=== PATIENT | female | born 1990 | race American Indian/Alaskan Native ===

== ENCOUNTER 2017-01-15 18:30 | Emergency (ER) | payer BC, OTHER ==
[2017-01-15] MEDS ORDERED: Sodium Chloride 0.9% 1,000 ML IV ONE (19:09)
[2017-01-15] MEDS ORDERED: Ondansetron 4 MG/2 ML SDV IVPUSH ONE (19:09)
--- NOTE | 2017-01-15 19:23 | EDM.PDOC ---
ED HPI GENERAL MEDICAL PROBLEM - General Chief Complaint: Gastrointestinal Problem Stated Complaint: BACK PAIN Time Seen by Provider: 01/15/17 18:55 - History of Present Illness INITIAL COMMENTS - FREE TEXT/NARRATIVE: HISTORY AND PHYSICAL: History of present illness: Patient 36-year-old female no significant past medical stringently journaled generalized weakness intermittent nausea and vomiting over last one week she states she's had recent family members diagnosed with cancer and she is concerned about cancer screening and a variety of nonspecific complaints she said over the last week she denied vaginal discharge irregular bleeding urinary symptoms she states that intermittent right-sided pain is poorly localizers no associated trauma no other complaints. Review of systems: As per history of present illness and below otherwise all systems reviewed and negative. Past medical history: As per history of present illness and as reviewed below otherwise noncontributory. Surgical history: As per history of present illness and as reviewed below otherwise noncontributory. Social history: No reported history of drug or alcohol abuse. Family history: As per history of present illness and as reviewed below otherwise noncontributory. Physical exam: HEENT: Atraumatic, normocephalic, pupils reactive, negative for conjunctival pallor or scleral icterus, mucous membranes dry, throat clear, neck supple, nontender, trachea midline. Lungs: Clear to auscultation, breath sounds equal bilaterally, chest nontender. Heart: S1S2, regular, negative for clicks, rubs, or JVD. Abdomen: Soft, nondistended, nontender. Negative for masses or hepatosplenomegaly. Negative for costovertebral tenderness. Pelvis: Stable nontender. Genitourinary: Deferred. Rectal: Deferred. Extremities: Atraumatic, negative for cords or calf pain. Neurovascular unremarkable. Neuro: Awake, alert, oriented. Cranial nerves II through XII unremarkable. Cerebellum unremarkable. Motor and sensory unremarkable throughout. Exam nonfocal. Diagnostics: CBC CMP UA hCG influenza screen chest x-ray Therapeutics: Normal saline 1 L bolus Zofran 4 mg IV Impression: #1 probable viral syndrome #2 vomiting Definitive disposition and diagnosis as appropriate pending reevaluation and review of above. - Related Data Allergies Allergy/AdvReac Type Severity Reaction Status Date / Time No Known Allergies Allergy Verified 01/15/17 19:54 Home Meds: Home Meds . 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: Musculoskeletal History: Reports: None Neurological History: Reports: Other (see below) Other Neuro History: bells palsy (2013) Psychiatric History: Reports: None Endocrine/Metabolic History: Reports: None Hematologic History: Reports: None Immunologic History: Reports: None Oncologic (Cancer) History: Reports: None Dermatologic History: Reports: None - Infectious Disease History Infectious Disease History: Reports: None - Past Surgical History Head Surgeries/Procedures: Reports: None HEENT Surgical History: Reports: None GI Surgical History: Reports: None Neurological Surgical History: Reports: None Social & Family History - Family History Family Medical History: Unobtainable - Tobacco Use Smoking Status *Q: Never Smoker Second Hand Smoke Exposure: No - Recreational Drug Use Recreational Drug Use: No ED ROS GENERAL - Review of Systems Review Of Systems: ROS reveals no pertinent complaints other than HPI. ED EXAM, GENERAL - Physical Exam Exam: See Below (See dictation) Course - Vital Signs Last Recorded V/S: Last Vital Signs Temp 36.8 C 01/15/17 19:54 Pulse 68 01/15/17 19:54 Resp 18 01/15/17 19:54 BP 115/70 01/15/17 19:54 Pulse Ox 99 01/15/17 19:54 - Orders/Labs/Meds Orders: Active Orders 24 hr Category Date Time Status Chest 2V [CR] Stat Exams 01/15/17 19:09 Ordered OB 1st Tri Sgl 1st Gest [US] Stat Exams 01/15/17 20:04 Taken Labs: Laboratory Tests 01/15/17 01/15/17 01/15/17 Range/Units 19:25 19:25 19:25 WBC 10.85 (4.0-11.0) K/uL RBC 4.76 (4.30-5.90) M/uL Hgb 13.1 (12.0-16.0) g/dL Hct 40.0 (36.0-46.0) % MCV 84.0 (80.0-98.0) fL MCH 27.5 (27.0-32.0) pg MCHC 32.8 (31.0-37.0) g/dL RDW Std Deviation 39.5 (28.0-62.0) fl RDW Coeff of Su 13 (11.0-15.0) % Plt Count 234 (150-400) K/uL MPV 9.60 (7.40-12.00) fL Neut % (Auto) 65.7 (48.0-80.0) % Lymph % (Auto) 25.4 (16.0-40.0) % [place] % (Auto) 8.3 (0.0-15.0) % Eos % (Auto) 0.5 (0.0-7.0) % Baso % (Auto) 0.1 (0.0-1.5) % Neut # 7.1 H (1.4-5.7) K/uL Lymph # 2.8 H (0.6-2.4) K/uL [place] # 0.9 H (0.0-0.8) K/uL Eos # 0.1 (0.0-0.7) K/uL Baso # 0.0 (0.0-0.1) K/uL Nucleated RBC % 0.0 /100WBC Nucleated RBCs # 0 K/uL Sodium 138 (136-146) mmol/L Potassium 3.9 (3.5-5.1) mmol/L Chloride 107 (98-110) mmol/L Carbon Dioxide 21 (21-31) mmol/L BUN 12 (6.0-23.0) mg/dL Creatinine 0.6 (0.6-1.5) mg/dL Est Cr Clr Drug Dosing 101.16 mL/min Estimated GFR (MDRD) > 60.0 ml/min Glucose 83 (60-110) mg/dL Calcium 9.0 (8.8-10.8) mg/dL Total Bilirubin 0.2 (0.1-1.5) mg/dL AST 26 (5-40) IU/L ALT 33 (8-54) IU/L Alkaline Phosphatase 76 (40-150) Total Protein 7.3 (6.0-8.0) g/dL Albumin 3.9 (3.5-5.0) g/dL Globulin 3.4 (2.0-3.5) g/dL Albumin/Globulin Ratio 1.1 L (1.3-2.8) Lipase 25 (7-80) U/L HCG, Quant mIU/mL Urine Color Urine Appearance Urine pH (5.0-8.0) Ur Specific [place] (1.001-1.035) Urine Protein (NEGATIVE) mg/dL Urine Glucose (UA) (NEGATIVE) mg/dL Urine Ketones (NEGATIVE) mg/dL Urine Occult Blood (NEGATIVE) Urine Nitrite (NEGATIVE) Urine Bilirubin (NEGATIVE) Urine Urobilinogen (<2.0) EU/dL Ur Leukocyte Esterase (NEGATIVE) Urine RBC (0-2/HPF) Urine WBC (0-5/HPF) Ur Epithelial Cells (NONE-FEW) Urine Bacteria (NEGATIVE) Urine HCG, Qual POSITIVE (NEGATIVE) 01/15/17 01/15/17 Range/Units 19:25 19:25 WBC (4.0-11.0) K/uL RBC (4.30-5.90) M/uL Hgb (12.0-16.0) g/dL Hct (36.0-46.0) % MCV (80.0-98.0) fL MCH (27.0-32.0) pg MCHC (31.0-37.0) g/dL RDW Std Deviation (28.0-62.0) fl RDW Coeff of Su (11.0-15.0) % Plt Count (150-400) K/uL MPV (7.40-12.00) fL Neut % (Auto) (48.0-80.0) % Lymph % (Auto) (16.0-40.0) % [place] % (Auto) (0.0-15.0) % Eos % (Auto) (0.0-7.0) % Baso % (Auto) (0.0-1.5) % Neut # (1.4-5.7) K/uL Lymph # (0.6-2.4) K/uL [place] # (0.0-0.8) K/uL Eos # (0.0-0.7) K/uL Baso # (0.0-0.1) K/uL Nucleated RBC % /100WBC Nucleated RBCs # K/uL Sodium (136-146) mmol/L Potassium (3.5-5.1) mmol/L Chloride (98-110) mmol/L Carbon Dioxide (21-31) mmol/L BUN (6.0-23.0) mg/dL Creatinine (0.6-1.5) mg/dL Est Cr Clr Drug Dosing mL/min Estimated GFR (MDRD) ml/min Glucose (60-110) mg/dL Calcium (8.8-10.8) mg/dL Total Bilirubin (0.1-1.5) mg/dL AST (5-40) IU/L ALT (8-54) IU/L Alkaline Phosphatase (40-150) Total Protein (6.0-8.0) g/dL Albumin (3.5-5.0) g/dL Globulin (2.0-3.5) g/dL Albumin/Globulin Ratio (1.3-2.8) Lipase (7-80) U/L HCG, Quant 916745.1 mIU/mL Urine Color YELLOW Urine Appearance CLEAR Urine pH 6.0 (5.0-8.0) Ur Specific [place] 1.025 (1.001-1.035) Urine Protein NEGATIVE (NEGATIVE) mg/dL Urine Glucose (UA) NEGATIVE (NEGATIVE) mg/dL Urine Ketones NEGATIVE (NEGATIVE) mg/dL Urine Occult Blood NEGATIVE (NEGATIVE) Urine Nitrite NEGATIVE (NEGATIVE) Urine Bilirubin NEGATIVE (NEGATIVE) Urine Urobilinogen 0.2 (<2.0) EU/dL Ur Leukocyte Esterase NEGATIVE (NEGATIVE) Urine RBC 0-2 (0-2/HPF) Urine WBC 0-2 (0-5/HPF) Ur Epithelial Cells FEW (NONE-FEW) Urine Bacteria FEW (NEGATIVE) Urine HCG, Qual (NEGATIVE) Meds: Medications Discontinued Medications Generic Name Dose Route Start Last Admin Trade Name Francisco Javierq PRN Reason Stop Dose Admin Sodium Chloride 1,000 mls @ 999 mls/hr 01/15/17 19:09 01/15/17 19:33 Normal Saline IV 01/15/17 20:09 999 mls/hr STAT ONE Administration Ondansetron HCl 4 mg 01/15/17 19:01/15/17 19:34 Zofran IVPUSH 01/15/17 19:10 4 mg ONETIME ONE Administration Departure - Departure Time of Disposition: 21:12 Disposition: Home, Self-Care 01 Condition: good Clinical Impression: First trimester , Threatened miscarriage in early Forms: ED Department Discharge Additional Instructions: The following information is given to patients seen in the emergency department who are being discharged to home. This information is to outline your options for follow-up care. We provide all patients seen in our emergency department with a follow-up referral. The need for follow-up, as well as the timing and circumstances, are variable depending upon the specifics of your emergency department visit. If you don't have a primary care physician on staff, we will provide you with a referral. We always advise you to contact your personal physician following an emergency department visit to inform them of the circumstance of the visit and for follow-up with them and/or the need for any referrals to a consulting specialist. The emergency department will also refer you to a specialist when appropriate. This referral assures that you have the opportunity for followup care with a specialist. All of these measure are taken in an effort to provide you with optimal care, which includes your followup. Under all circumstances we always encourage you to contact your private physician who remains a resource for coordinating your care. When calling for followup care, please make the office aware that this follow-up is from your recent emergency room visit. If for any reason you are refused follow-up, please contact the [facility] emergency department at and asked to speak to the emergency department charge nurse. The following information is given to patients seen in the emergency department who are being discharged to home. This information is to outline your options for follow-up care. We provide all patients seen in our emergency department with a follow-up referral. 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
[2017-01-15 20:10] LABS: CHLORIDE,CL 107 mmol/L (98-110); SODIUM,NA 138 mmol/L (136-146)
[2017-01-15 21:42] VITALS: BP 132/75
--- NOTE | 2017-01-16 19:41 | US ---
EXAM DATE: 01/15/17 PATIENT'S AGE: 26 Patient: YANG ROSE Facility: [place], [place] Site . Site : 1990 Study: US OB Pelvis [id number]/9/2017 8:56:20 PM Ordering Physician: Johnny Kay Final Report: INDICATION: Abdominal pain, spotting TECHNIQUE: Ultrasound OB pelvis transvaginal. Real-time davis-scale imaging of the pelvis was performed. COMPARISON: None FINDINGS: Sonographic imaging demonstrates a single living intrauterine gestation. The embryo demonstrates a regular cardiac rate measuring 157 beats per minute. The embryo`s crown rump length measurement of 1.5 cm corresponds to a gestational age of 7 weeks 6 days with an estimated date of delivery of August 28, 2017. There is a normal appearing yolk sac. There are no gross abnormalities noted within the embryo at this early state of development. The placenta has not yet developed. The gestational sac has a normal appearance and there is no evidence of a perigestational hemorrhage. The amount of fluid within the sac appears appropriate for gestational age. The cervix is closed. The myometrium appears normal. The ovaries are of normal size. There are no suspicious fluid collections noted in the cul-de-sac. IMPRESSION: Single viable intrauterine . No abnormalities seen. Dictated by Myranda Cespedes MD @ Jan 15 2017 9:08PM (Electronic Signature) Report Signed by Proxy and Original Signed Document filed in the Medical Record. [facility]PITAL[facility]rake
== END 2017-01-15 21:25 | disposition home or self-care (01) ==
LOC: MW.ED 18:30
DX: O20.0 Threatened abortion (principal)
CPT/HCPCS: 36415; 76801; 80053; 81001; 81025; 83690; 84702; 85025; 87804; 96361; 96374; 99284; J2405; J7040

== ENCOUNTER → 2017-01-27 | Outpatient (CLI) | payer BC | LOC: MW.CHOBGYN 08:53 | PROVIDERS: ATTEND Obstetrics & Gynecology | DX: Z34.90 Encounter for supervision of normal pregnancy, unspecified, unspecified trimester (principal) | CPT/HCPCS: 80305; 81003; 81025; 87070; 87491; 87591; G0145 ==

== ENCOUNTER → 2017-02-27 | Outpatient (CLI) | payer BC | LOC: MW.CHOBGYN 09:05 | PROVIDERS: ATTEND Obstetrics & Gynecology | DX: Z34.90 Encounter for supervision of normal pregnancy, unspecified, unspecified trimester (principal) | CPT/HCPCS: 81003 ==

== ENCOUNTER 2017-03-13 16:51 | Emergency (ER) | payer BC ==
--- NOTE | 2017-03-13 17:24 | EDM.PDOC ---
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 She follows in our OB clinic and has no significant surgical history other than a with her first child. Patient says the pain started suddenly about an hour and a half ago while she was sitting resting and originated midline suprapubically and radiates to the right. She has no flank pain no nausea no vomiting no fever and no upper abdominal pain. She's had no vaginal bleeding no hematuria no dysuria frequency or urgency and has not had sexual intercourse in the last 2 days. Patient has a history of irregular menses and her has been dated by an ultrasound performed in the ER on January 15 which put her at 7 weeks 6 days, today 16 weeks zero days. The patient denies any PID or STD history and has no history of ovarian cysts or Gyne problems in the past. Patient took Tylenol about an hour and a half prior to coming here and says that that has not improved it. There is no left lower abdominal pain and no issues with her bowels recently. She's been eating and drinking normally. She is no history of kidney stones Review of systems: As per history of present illness and below otherwise all systems reviewed and negative. Past medical history: As per history of present illness and as reviewed below otherwise noncontributory. Surgical history: As per history of present illness and as reviewed below otherwise noncontributory. Social history: No reported history of drug or alcohol abuse. Family history: As per history of present illness and as reviewed below otherwise noncontributory. Physical exam: General: Well-developed well-nourished overweight female who is nontoxic and is somewhat tearful on my evaluation but is able to move easily in the ER without distress. HEENT: Atraumatic, normocephalic, pupils reactive, negative for conjunctival pallor or scleral icterus, mucous membranes moist, throat clear, neck supple, nontender, trachea midline. Lungs: Clear to auscultation, breath sounds equal bilaterally, chest nontender. Heart: S1S2, regular, negative for clicks, rubs, or JVD. Abdomen: Soft, nondistended, bowel sounds are slightly hypoactive and there is mild tenderness on deep in supra- pubic area as well as the right lower abdomen but there is no rebound or guarding appreciated. There is no right upper abdominal or epigastric tenderness. Negative for masses or hepatosplenomegaly. Negative for costovertebral tenderness. Pelvis: Stable nontender. Genitourinary: Deferred. Rectal: Deferred. Extremities: Atraumatic, negative for cords or calf pain. Neurovascular unremarkable. Neuro: Awake, alert, oriented. Cranial nerves II through XII unremarkable. Cerebellum unremarkable. Motor and sensory unremarkable throughout. Exam nonfocal. Diagnostics: CBC CMP UA urine culture if indicated quantitative hCG pelvic ultrasound as well as retroperitoneal ultrasound to evaluate the right kidney and evaluation for appendix issues. Therapeutics: Patient took Tylenol prior to arrival 1846: Case was discussed with the patient's own PMD, Dr. Brown. He is aware of the tacks interpretation of the ultrasound as well as the labs and we are currently awaiting the official reading by the radiologist. He states that at he can follow her in the clinic and she can use Tylenol for pain pending the ultrasound results. I will advise her on this conversation as well as reasons to return to the ED and need for followup Impression: Pelvic pain in second trimester stable, likely round ligament Definitive disposition and diagnosis as appropriate pending reevaluation and review of above. Pelvic Pain Score (Numeric/FACES): 8 - Related Data Allergies Allergy/AdvReac Type Severity Reaction Status Date / Time No Known Allergies Allergy Verified 03/13/17 17:16 Home Meds: Home Meds Acetaminophen [Tylenol] 325 mg PO DAILY PRN 03/13/17 [History] Pnv No.122/Iron/Folic Acid [ Multi Tablet] 1 cap PO DAILY 03/13/17 [ History] Past Medical History - Past Health History Medical/Surgical History: Denies Medical/Surgical History HEENT History: Reports: None Cardiovascular History: Reports: None Respiratory History: Reports: None Gastrointestinal History: Reports: Other (see below) Other Gastrointestinal History: liver trauma (2004) Genitourinary History: Reports: None 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: Musculoskeletal History: Reports: None Neurological History: Reports: Other (see below) Other Neuro History: bells palsy (2013) Psychiatric History: Reports: None Endocrine/Metabolic History: Reports: None Hematologic History: Reports: None Immunologic History: Reports: None Oncologic (Cancer) History: Reports: None Dermatologic History: Reports: None - Infectious Disease History Infectious Disease History: Reports: None - Past Surgical History Head Surgeries/Procedures: Reports: None HEENT Surgical History: Reports: None GI Surgical History: Reports: None Neurological Surgical History: Reports: None Social & Family History - Family History Family Medical History: Unobtainable - Tobacco Use Smoking Status *Q: Never Smoker Second Hand Smoke Exposure: No - Caffeine Use Caffeine Use: Reports: Energy drinks Caffeine Use Comment: 2drinks/week - Recreational Drug Use Recreational Drug Use: No ED ROS GENERAL - Review of Systems Review Of Systems: ROS reveals no pertinent complaints other than HPI. ED EXAM, GENERAL - Physical Exam Exam: See Below (See dictation) Course - Vital Signs Last Recorded V/S: Last Vital Signs Temp 36.4 C 03/13/17 18:59 Pulse 84 03/13/17 18:59 Resp 20 03/13/17 18:59 BP 120/70 03/13/17 18:59 Pulse Ox 99 03/13/17 18:59 - Orders/Labs/Meds Orders: Active Orders 24 hr Category Date Time Status Abdomen Ltd [US] Stat Exams 03/13/17 17:18 Taken OB Ltd 1 or More Fetus [US] Stat Exams 03/13/17 17:18 Taken Labs: Laboratory Tests 03/13/17 03/13/17 03/13/17 Range/Units 17:20 17:28 17:28 WBC 11.34 H (4.0-11.0) K/uL RBC 4.38 (4.30-5.90) M/uL Hgb 12.1 (12.0-16.0) g/dL Hct 36.2 (36.0-46.0) % MCV 82.6 (80.0-98.0) fL MCH 27.6 (27.0-32.0) pg MCHC 33.4 (31.0-37.0) g/dL RDW Std Deviation 42.7 (28.0-62.0) fl RDW Coeff of Su 14 (11.0-15.0) % Plt Count 208 (150-400) K/uL MPV 9.10 (7.40-12.00) fL Neut % (Auto) 72.9 (48.0-80.0) % Lymph % (Auto) 19.4 (16.0-40.0) % [place] % (Auto) 7.2 (0.0-15.0) % Eos % (Auto) 0.4 (0.0-7.0) % Baso % (Auto) 0.1 (0.0-1.5) % Neut # (Auto) 8.3 H (1.4-5.7) K/uL Lymph # (Auto) 2.2 (0.6-2.4) K/uL [place] # (Auto) 0.8 (0.0-0.8) K/uL Eos # (Auto) 0.1 (0.0-0.7) K/uL Baso # (Auto) 0.0 (0.0-0.1) K/uL Nucleated RBC % 0.0 /100WBC Nucleated RBCs # 0 K/uL Sodium 136 (136-146) mmol/L Potassium 3.3 L (3.5-5.1) mmol/L Chloride 108 (98-110) mmol/L Carbon Dioxide 17 L (21-31) mmol/L BUN 4 L (6.0-23.0) mg/dL Creatinine 0.5 L (0.6-1.5) mg/dL Est Cr Clr Drug Dosing 121.40 mL/min Estimated GFR (MDRD) > 60.0 ml/min Glucose 79 (60-110) mg/dL Calcium 8.8 (8.8-10.8) mg/dL Total Bilirubin 0.3 (0.1-1.5) mg/dL AST 22 (5-40) IU/L ALT 22 (8-54) IU/L Alkaline Phosphatase 65 (40-150) Total Protein 6.8 (6.0-8.0) g/dL Albumin 3.5 (3.5-5.0) g/dL Globulin 3.3 (2.0-3.5) g/dL Albumin/Globulin Ratio 1.1 L (1.3-2.8) HCG, Quant 87678.7 mIU/mL Urine Color YELLOW Urine Appearance CLEAR Urine pH 7.0 (5.0-8.0) Ur Specific [place] 1.010 (1.001-1.035) Urine Protein NEGATIVE (NEGATIVE) mg/dL Urine Glucose (UA) NEGATIVE (NEGATIVE) mg/dL Urine Ketones NEGATIVE (NEGATIVE) mg/dL Urine Occult Blood TRACE-INTACT (NEGATIVE) Urine Nitrite NEGATIVE (NEGATIVE) Urine Bilirubin NEGATIVE (NEGATIVE) Urine Urobilinogen 0.2 (<2.0) EU/dL Ur Leukocyte Esterase NEGATIVE (NEGATIVE) Urine RBC 0-2 (0-2/HPF) Urine WBC 2-3 (0-5/HPF) Ur Epithelial Cells OCCASIONAL (NONE-FEW) Amorphous Sediment NOT SEEN (NEGATIVE) Urine Bacteria FEW (NEGATIVE) Urine Mucus NOT SEEN (NONE-MOD) Departure - Departure Disposition: Home, Self-Care 01 Condition: good Clinical Impression: Pelvic pain during , Second trimester , Round ligament pain Referrals: Nate Brown MD [Primary Care Provider] - Forms: ED Department Discharge Additional Instructions: The following information is given to patients seen in the emergency department who are being discharged to home. This information is to outline your options for follow-up care. We provide all patients seen in our emergency department with a follow-up referral. The need for follow-up, as well as the timing and circumstances, are variable depending upon the specifics of your emergency department visit. If you don't have a primary care physician on staff, we will provide you with a referral. We always advise you to contact your personal physician following an emergency department visit to inform them of the circumstance of the visit and for follow-up with them and/or the need for any referrals to a consulting specialist. The emergency department will also refer you to a specialist when appropriate. This referral assures that you have the opportunity for followup care with a specialist. All of these measure are taken in an effort to provide you with optimal care, which includes your followup. Under all circumstances we always encourage you to contact your private physician who remains a resource for coordinating your care. When calling for followup care, please make the office aware that this follow-up is from your recent emergency room visit. If for any reason you are refused follow-up, please contact the [facility] emergency department at and ask to speak to the emergency department charge nurse. PATRICIA [facility] [address] [facility] [address] [place] [address] Please use [id number] Tylenol for pain rest and push hydration. Please call and followup with your physician, Dr. Brown, next week. Please return to ER as needed and as discussed <Maryjane Huitron - Last Filed: 03/13/17 19:23> Departure - Departure Time of Disposition: 19:23
[2017-03-13 18:05] LABS: CHLORIDE,CL 108 mmol/L (98-110); SODIUM,NA 136 mmol/L (136-146)
[2017-03-13 18:59] VITALS: BP 120/70
--- NOTE | 2017-03-16 15:47 | US ---
EXAM DATE: 03/13/17 PATIENT'S AGE: 26 Patient: YANG ROSE Facility: [place], [place] Site . Site : 1990 Study: US OB Pelvis [id number]/5/[id number] 6:37:50 PM Ordering Physician: Deep Lynne Final Report: INDICATION: Right abdominal pain with cramping, no vaginal bleeding. . TECHNIQUE: Ultrasound OB pelvis transabdominal. Real-time davis-scale imaging of the fetus was performed with anatomic survey limited to biometric measurements. Color Doppler and spectral Doppler analysis of the umbilical artery was performed. COMPARISON: Early OB ultrasound dated 01/15/2017. FINDINGS: Limited OB ultrasound. heart rate: 151 bpm Placenta: Posterior with marginal placenta overlying the internal os. Amniotic fluid: Subjectively normal. Cervix: Long and closed. Cervical measurement not obtained. [place] rump length measures 11.5 centimeters, corresponding to gestational age of 17 weeks 4 days. The composite ultrasound gestational age is calculated at 17 weeks 4 days with an estimated sonographic due date of 08/17/2017. Ultrasound dating approximately 1 week 4 days discordant with gestational age based on LMP. IMPRESSION: 1. Single viable intrauterine with an estimated gestational age of 17 weeks 4 days. 2. Placenta previa noted on transabdominal imaging. No endovaginal images submitted for review. Recommend followup OB ultrasound for dedicated anatomic survey, with evaluation of the placental margin with endovaginal imaging at that time. Dictated by Teodoro Ramirez MD @ 03/13/2017 6:55:45 PM Dictated by: Teodoro Ramirez MD @ 03/13/2017 18:55:52 (Electronic Signature) Report Signed by Proxy. ALICIA
--- NOTE | 2017-03-16 15:48 | US ---
EXAM DATE: 03/13/17 PATIENT'S AGE: 26 Patient: YANG ROSE Facility: [place], [place] Site . Site : 1990 Study: US Abdomen [id number] 6:40:02 PM Ordering Physician: Deep Lynne Final Report: INDICATION: Right-sided abdominal pain. at 16 weeks. Evaluate for appendicitis, hydronephrosis, renal calculus. TECHNIQUE: Ultrasound abdomen limited. COMPARISON: CT study dated 01/30/2017 FINDINGS: Targeted sonographic evaluation of the right lower bone quadrant unremarkable. Appendix not identified. No free fluid. Right kidney measures 10.7 centimeters in length. No hydronephrosis or renal calculi. Extensive fatty infiltration of the visualized liver. Bilateral ureteral jets are visualized. Bladder wall unremarkable. IMPRESSION: 1. Appendix not visualized. No secondary findings of acute appendicitis. 2. No right hydronephrosis or renal calculi. 3. Hepatic steatosis. Dictated by Teodoro Ramirez MD @ 03/13/2017 6:59:49 PM Dictated by: Teodoro Ramirez MD @ 03/13/2017 18:59:55 (Electronic Signature) Report Signed by Proxy. [facility] MEDICAL CENTERDrake
== END 2017-03-13 19:29 | disposition home or self-care (01) ==
LOC: MW.ED 16:51
DX: O99.89 Other specified diseases and conditions complicating pregnancy, childbirth and the puerperium (principal); R10.2 Pelvic and perineal pain; Z3A.16 16 weeks gestation of pregnancy; Z79.899 Other long term (current) drug therapy
CPT/HCPCS: 36415; 76705; 76705-26; 76815; 76815-26; 80053; 81001; 84702; 85025; 99283; 99284-25

== ENCOUNTER → 2017-03-30 | Outpatient (CLI) | payer BC ==
--- NOTE | 2017-04-01 13:02 | US ---
EXAM DATE: 03/30/17 PATIENT'S AGE: 26 Patient: YANG EASTMAN Facility: [facility] Site . Site : 1990 Study: US-OB Pelvis [id number] 4:52:39 PM Ordering Physician: Kevin Sullivan Final Report: INDICATION: 2nd trimester anatomical survey. TECHNIQUE: Ultrasound OB pelvis transabdominal. Real-time davis-scale imaging of the fetus was performed as well as color Doppler and spectral Doppler analysis of the umbilical artery. COMPARISON: March 13, 2017. FINDINGS: Sonographic imaging demonstrates a single living intrauterine gestation. Fetus demonstrates a regular cardiac rate of 150 beats per minute. Fetus has a breech orientation. The placenta lies posterior without evidence of placenta previa. Amniotic fluid volume appears normal. The composite ultrasound gestational age is calculated at 18 weeks 5 days with an estimated sonographic due date of August 26, 2017. The weight is estimated at 268 grams, the 79th percentile. The following biometric measurements were obtained: Biparietal diameter: 4.1 cm. Head circumference: 15.4 cm. Abdominal circumference: 14.2 cm. Femur length: 2.7 cm. On anatomic survey, there is a normal appearance of the cerebral ventricles, cisterna magna and cerebellum. The nose, lips, and facial profile appear normal. The cervical, thoracic and lumbar spines are well visualized and appear normal. There is a normal four-chamber heart and the left and right ventricular outflow tracts appear normal. diaphragm, stomach, kidneys and bladder appear normal. There is a normal three-vessel cord and cord insertion site. The four extremities appear normal. IMPRESSION: 1.Single viable intrauterine . 2.No intrinsic abnormalities noted on anatomic survey. Dictated by Jake Thompson MD @ Apr 01 2017 8:07AM Signed by: Jake Thompson MD @04/01/2017 8:16:51 AM (Electronic Signature) Report Signed by Proxy. ALICIA
== END ==
LOC: MW.US 11:03
PROVIDERS: ATTEND Obstetrics & Gynecology
DX: Z36 Encounter for antenatal screening of mother (principal)
CPT/HCPCS: 36415; 76805; 76805-26; 80305; 81003; 86592; 86762; 86803; 86850; 86900; 86901; 87086; 87340

== ENCOUNTER 2017-06-24 20:46 | Emergency (ER) | payer BC ==
--- NOTE | 2017-06-24 21:02 | EDM.PDOC ---
ED HPI GENERAL MEDICAL PROBLEM - General Chief Complaint: Respiratory Problem Stated Complaint: SOB/COLD Time Seen by Provider: 06/24/17 20:58 Source of Information: Reports: Patient History Limitations: Reports: No Limitations - History of Present Illness INITIAL COMMENTS - FREE TEXT/NARRATIVE: HISTORY AND PHYSICAL: []27-year-old female presents to the emergency department with concerns about "not being able to breathe" History of Present Illness: []Patient just to travel to this area from [place] is sniffling and has facial congestion She does complaint of slight tightness with a deep breath Patient is a para 2 1 Her LAB SYSTEMS ANALYST is Dr. Brown She has been to the emergency room in the past for round ligamental pain Review of Systems: As per history of present illness and below otherwise all systems reviewed and negative. Past medical history: As per history of present illness and as reviewed below otherwise noncontributory. Surgical history: As per history of present illness and as reviewed below otherwise noncontributory. Social history: No reported history of drug or alcohol abuse. Family history: As per history of present illness and as reviewed below otherwise noncontributory. Physical exam: Alert and oriented female who is 30 weeks 5 days . She has been ill for a couple of days. HEENT: Atraumatic, normocehpalic, pupils reactive, negative for conjunctival pallor or scleral icterus, mucous membranes moist, throat clear exudate, neck supple, nontender, trachea midline. Tympanic membranes without erythema. Neck is supple no cervical adenopathy Lungs: Clear to auscultation, breath sounds equal bilaterally, chest non tender. Heart: S1S2, regular, negative for clicks, rubs, or JVD. Abdomen: Soft, distended, nontender. Negative for masses or hepatossplenmegaly. Negative for costovertebral tenderness. Pelvis: Stable nontender. Genitourinary: Deferred. Rectal: Deferred Extremities: Atraumatic, negative for cords or calf pain. Neurovascular unremarkable. Neuro: Awake, alert, oriented. Cranial nerves II through XII unremarkable. Cerebellum unremarkable. Motor and sensory unremarkable throughout. Exam nonfocal. heart tones dopplered at 140. Diagnostics: [CBC] Therapeutics: [] Impression: [Viral illness] Plan: []Home Benadryl [id number] for symptoms Definitive disposition and diagnosis as appropriate pending reevaluation and review of above. Onset: Sudden Duration: Day(s): Location: Reports: Face Upper Abdomen Pain Score (Numeric/FACES): 4 - Related Data Allergies Allergy/AdvReac Type Severity Reaction Status Date / Time No Known Allergies Allergy Verified 03/13/17 17:16 Home Meds: Home Meds Acetaminophen [Tylenol] 325 mg PO DAILY PRN 03/13/17 [History] Pnv No.122/Iron/Folic Acid [ Multi Tablet] 1 cap PO DAILY 03/13/17 [ History] Past Medical History - Past Health History Medical/Surgical History: Denies Medical/Surgical History HEENT History: Reports: None Cardiovascular History: Reports: None Respiratory History: Reports: None Gastrointestinal History: Reports: Other (See Below) Other Gastrointestinal History: liver trauma (2003) Genitourinary History: Reports: None LAB SYSTEMS ANALYST History: Reports: Musculoskeletal History: Reports: None Neurological History: Reports: Other (See Below) Other Neuro History: bells palsy (2012) Psychiatric History: Reports: None Endocrine/Metabolic History: Reports: None Hematologic History: Reports: None Immunologic History: Reports: None Oncologic (Cancer) History: Reports: None Dermatologic History: Reports: None - Infectious Disease History Infectious Disease History: Reports: None - Past Surgical History Female Surgical History: Reports: Section Social & Family History - Family History Family Medical History: Unobtainable - Tobacco Use Smoking Status *Q: Never Smoker Second Hand Smoke Exposure: No - Caffeine Use Caffeine Use: Reports: Energy Drinks Caffeine Use Comment: 2drinks/week - Recreational Drug Use Recreational Drug Use: No ED ROS GENERAL - Review of Systems Review Of Systems: ROS reveals no pertinent complaints other than HPI. ED EXAM, GENERAL - Physical Exam Exam: See Below (See dictation) Course - Vital Signs Last Recorded V/S: Last Vital Signs Temp 36.1 C 06/24/17 20:52 Pulse 108 H 06/24/17 20:52 Resp 20 06/24/17 20:52 BP 111/57 L 06/24/17 20:52 Pulse Ox 97 06/24/17 20:52 - Orders/Labs/Meds Labs: Laboratory Tests 06/24/17 Range/Units 21:02 WBC 10.88 (4.0-11.0) K/uL RBC 3.97 L (4.30-5.90) M/uL Hgb 10.7 L (12.0-16.0) g/dL Hct 33.0 L (36.0-46.0) % MCV 83.1 (80.0-98.0) fL MCH 27.0 (27.0-32.0) pg MCHC 32.4 (31.0-37.0) g/dL RDW Std Deviation 41.7 (28.0-62.0) fl RDW Coeff of Su 14 (11.0-15.0) % Plt Count 223 (150-400) K/uL MPV 9.30 (7.40-12.00) fL Add Manual Diff YES Neutrophils % (Manual) 75 (48.0-80.0) % Band Neutrophils % 8 % Lymphocytes % (Manual) 13 L (16.0-40.0) % Monocytes % (Manual) 4 (0.0-15.0) % Absolute Seg Neuts 8.2 Band Neutrophils # 0.9 Lymphocytes # (Manual) 1.4 Monocytes # (Manual) 0.4 Departure - Departure Time of Disposition: 21:32 Disposition: Home, Self-Care 01 Condition: Good Clinical Impression: Viral upper respiratory infection - Discharge Information Forms: ED Department Discharge Additional Instructions: The following information is given to patients seen in the emergency department who are being discharged to home. This information is to outline your options for follow-up care. We provide all patients seen in our emergency department with a follow-up referral. The need for follow-up, as well as the timing and circumstances, are variable depending upon the specifics of your emergency department visit. If you don't have a primary care physician on staff, we will provide you with a referral. We always advise you to contact your personal physician following an emergency department visit to inform them of the circumstance of the visit and for follow-up with them and/or the need for any referrals to a consulting specialist. The emergency department will also refer you to a specialist when appropriate. This referral assures that you have the opportunity for followup care with a specialist. All of these measure are taken in an effort to provide you with optimal care, which includes your followup. Under all circumstances we always encourage you to contact your private physician who remains a resource for coordinating your care. When calling for followup care, please make the office aware that this follow-up is from your recent emergency room visit. If for any reason you are refused follow-up, please contact the [facility] emergency department at and asked to speak to the emergency department charge nurse. The viral infection in the sinuses and causing your difficulty with breathing You may take Benadryl [id number] as directed by the package as this will be safe during
[2017-06-24 21:58] VITALS: BP 104/60
== END 2017-06-24 21:45 | disposition home or self-care (01) ==
LOC: MW.ED 20:46
DX: O99.513 Diseases of the respiratory system complicating pregnancy, third trimester (principal); J06.9 Acute upper respiratory infection, unspecified; O98.513 Other viral diseases complicating pregnancy, third trimester; B34.9 Viral infection, unspecified; Z79.899 Other long term (current) drug therapy; Z3A.30 30 weeks gestation of pregnancy
CPT/HCPCS: 36415; 85025; 99283; 99285

== ENCOUNTER 2017-08-13 05:14 | Inpatient (IN) | payer BC ==
[~2017-08-13 05:14] MED LIST: Citric Acid/Sodium Citrate Solution 30 ML Cup PO SCH; Oxytocin/0.9 % Sodium Chloride 30 UNIT/500 ML BAG IV SCH; Sodium Chloride 0.9% 10 ML Syringe FLUSH PRN; Sodium Chloride 0.9% 2.5 ML Syringe FLUSH PRN
[2017-08-13] MEDS: Lactated Ringers 1,000 ML IV SCH ×3 (05:44→07:50)
[2017-08-13] MEDS ORDERED: Sodium Chloride 0.9% 20 ML IV ONE (07:17)
[2017-08-13] MEDS ORDERED: ePHEDrine 50 MG/ML SDV IV ONE (07:17)
[2017-08-13] MEDS ORDERED: Water For Injection, Sterile 20 ML INJECT ONE (07:17)
[2017-08-13] MEDS ORDERED: Ondansetron 4 MG/2 ML SDV IVPUSH ONE (07:17)
[2017-08-13] MEDS ORDERED: Midazolam 1 MG/ML 2 ML SDV IV ONE (07:17)
[2017-08-13] MEDS ORDERED: Metoclopramide 10 MG/2 ML SDV IV ONE (07:17)
[2017-08-13] MEDS ORDERED: Phenylephrine/Normal Saline 100 MCG/ML 10 ML Syringe IV ONE (07:17)
[2017-08-13] MEDS ORDERED: Morphine PF 10 MG/10 ML SDV IV ONE (07:17)
[2017-08-13] MEDS ORDERED: Oxytocin 10 Units/1 ML SDV IV ONE (07:17)
[2017-08-13] MEDS ORDERED: ceFAZolin 1 GM Vial IV ONE (07:17)
[2017-08-13] MEDS ORDERED: Octyl 2-Cyanoacrylate 1 Tube ONE (07:40)
--- NOTE | 2017-08-13 07:48 | PCM.PREANE ---
Preanesthetic Assessment - Anesthesia/Transfusion/Family Hx Anesthesia History: Prior Anesthesia Without Reaction Family History of Anesthesia Reaction: No Transfusion History: Prior Transfusion Without Reaction - Review of Systems General: No Symptoms Pulmonary: No Symptoms Cardiovascular: No Symptoms Gastrointestinal: No Symptoms Neurological: No Symptoms Other: Reports: None - Physical Assessment NPO Status Date: 08/12/17 Height: 1.5 m Weight: 80.286 kg ASA Class: 2 Mental Status: Alert & Oriented x3 Airway Class: Mallampati = 2 Dentition: Reports: Normal Dentition ROM/Head Extension: Full Lungs: Clear to Auscultation, Normal Respiratory Effort Cardiovascular: Regular Rate, Regular Rhythm - Lab Values: Laboratory Last Values WBC 10.38 K/uL (4.0-11.0) 08/12/17 09:46 RBC 4.24 M/uL (4.30-5.90) L 08/12/17 09:46 Hgb 11.0 g/dL (12.0-16.0) L 08/12/17 09:46 Hct 34.6 % (36.0-46.0) L 08/12/17 09:46 MCV 81.6 fL (80.0-98.0) 08/12/17 09:46 MCH 25.9 pg (27.0-32.0) L 08/12/17 09:46 MCHC 31.8 g/dL (31.0-37.0) 08/12/17 09:46 RDW Std Deviation 48.8 fl (28.0-62.0) 08/12/17 09:46 RDW Coeff of Su 16 % (11.0-15.0) H 08/12/17 09:46 Plt Count 174 K/uL (150-400) 08/12/17 09:46 MPV 10.00 fL (7.40-12.00) 08/12/17 09:46 Nucleated RBC % 0.0 /100WBC 08/12/17 09:46 Nucleated RBCs # 0 K/uL 08/12/17 09:46 POC Glucose 77 mg/dL (60-110) 08/13/17 06:31 Blood Type O POSITIVE 08/12/17 09:46 Antibody Screen NEGATIVE 08/12/17 09:46 - Allergies Allergies/Adverse Reactions: Allergies Allergy/AdvReac Type Severity Reaction Status Date / Time No Known Allergies Allergy Verified 08/13/17 07:30 - Anesthesia Plan Pre-Op Medication Ordered: Antacids - Acknowledgements Anesthesia Type Planned: Spinal Pt an Appropriate Candidate for the Planned Anesthesia: Yes Alternatives and Risks of Anesthesia Discussed w Pt/Guardian: Yes Pt/Guardian Understands and Agrees with Anesthesia Plan: Yes Additional Comments: for scheduled elective repear c/s. 38 weeks, gest diabetes requiring no meds, + heartburn, meds- vits only, NKDA. Plan spinal with intrathecal duramorph. formal anesthesia consent documentation obtained. PreAnesthesia Questionnaire - Past Health History Medical/Surgical History: Denies Medical/Surgical History HEENT History: Reports: Other (See Below) Other HEENT History: wears glasses/contacts Cardiovascular History: Reports: None Respiratory History: Reports: None Gastrointestinal History: Reports: Other (See Below) Other Gastrointestinal History: occasional heartburn during Genitourinary History: Reports: None WARP PICKER History: Reports: Musculoskeletal History: Reports: None Neurological History: Reports: Other (See Below) Other Neuro History: bells palsy (2013) Psychiatric History: Reports: None Endocrine/Metabolic History: Reports: Diabetes, Gestational, Obesity/BMI 30+ Other Endocrine/Metabolic History: gestational diabetes controlled with diet Hematologic History: Reports: Blood Transfusion(s) Other Hematologic History: blood transfusion after previous Immunologic History: Reports: None Oncologic (Cancer) History: Reports: None Dermatologic History: Reports: None - Infectious Disease History Infectious Disease History: Reports: None - Past Surgical History Female Surgical History: Reports: Section - SUBSTANCE USE Smoking Status *Q: Never Smoker Second Hand Smoke Exposure: No Recreational Drug Use History: No - HOME MEDS Home Medications: Home Meds Acetaminophen [Tylenol] 325 mg PO DAILY PRN 03/13/17 [History] Pnv No.122/Iron/Folic Acid [ Multi Tablet] 1 cap PO DAILY 03/13/17 [ History] Ferrous Sulfate [Iron] 1 tab PO DAILY 08/12/17 [History] - CURRENT (IN HOUSE) MEDS Current Meds: Current Medications Citric Acid/Sodium Citrate (Bicitra Solution) 30 ml PO .ONCE KAYLA Lactated Ringer's (Ringers, Lactated) 1,000 mls @ 500 mls/hr IV .BOLUS KAYLA Last Admin: 10/05/17 06:17 Dose: 750 mls/hr Oxytocin/Sodium Chloride (Oxytocin 30 Unit/500 Ml-Ns) 30 unit in 500 mls @ 250 mls/hr IV TITRATE KAYLA Sodium Chloride (Saline Flush) 10 ml FLUSH ASDIRECTED PRN PRN Reason: Keep Vein Open Sodium Chloride (Saline Flush) 2.5 ml FLUSH ASDIRECTED PRN PRN Reason: Keep Vein Open Discontinued Medications Octyl Cyanoacrylate (Dermabond Advance) Confirm Administered Dose 1 applic .[address] .[facility] ONE Stop: 08/13/17 07:41
[2017-08-13] MEDS ORDERED: ceFAZolin 2 GM in Premix Bag 1 BAG IV ONE (07:49)
--- NOTE | 2017-08-13 07:56 | PCM.LDHP ---
L&D History of Present Illness - General Date of Service: 08/13/17 Admit Problem/Dx: Patient Status Order with Admit Dx/Problem 08/12/17 22:41 Patient Status [ADT] Routine Admission Diagnosis/Problem Admission Diagnosis/Problem Planned Source of Information: Patient History Limitations: Reports: No Limitations - History of Present Illness Improves with: Reports: None Worsens with: Reports: None Associated Symptoms: Reports: N - Related Data Allergies/Adverse Reactions: Allergies Allergy/AdvReac Type Severity Reaction Status Date / Time No Known Allergies Allergy Verified 08/13/17 07:30 Home Medications: Home Meds Acetaminophen [Tylenol] 325 mg PO DAILY PRN 03/13/17 [History] Pnv No.122/Iron/Folic Acid [ Multi Tablet] 1 cap PO DAILY 03/13/17 [ History] Ferrous Sulfate [Iron] 1 tab PO DAILY 08/12/17 [History] Past Medical History - Past Health History Medical/Surgical History: Denies Medical/Surgical History HEENT History: Reports: Other (See Below) Other HEENT History: wears glasses/contacts Cardiovascular History: Reports: None Respiratory History: Reports: None Gastrointestinal History: Reports: Other (See Below) Other Gastrointestinal History: occasional heartburn during Genitourinary History: Reports: None 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: Musculoskeletal History: Reports: None Neurological History: Reports: Other (See Below) Other Neuro History: bells palsy (2013) Psychiatric History: Reports: None Endocrine/Metabolic History: Reports: Diabetes, Gestational, Obesity/BMI 30+ Other Endocrine/Metabolic History: gestational diabetes controlled with diet Hematologic History: Reports: Blood Transfusion(s) Other Hematologic History: blood transfusion after previous Immunologic History: Reports: None Oncologic (Cancer) History: Reports: None Dermatologic History: Reports: None - Infectious Disease History Infectious Disease History: Reports: None - Past Surgical History Female Surgical History: Reports: Section Social & Family History - Family History Family Medical History: Unobtainable - Tobacco Use Smoking Status *Q: Never Smoker Second Hand Smoke Exposure: No - Caffeine Use Caffeine Use: Reports: Energy Drinks Caffeine Use Comment: 2drinks/week - Recreational Drug Use Recreational Drug Use: No Drug Use in Last 12 Months: No H&P Review of Systems - Review of Systems: Review Of Systems: See Below General: Reports: No Symptoms HEENT: Reports: No Symptoms Pulmonary: Reports: No Symptoms Cardiovascular: Reports: No Symptoms Gastrointestinal: Reports: No Symptoms Genitourinary: Reports: No Symptoms Musculoskeletal: Reports: No Symptoms Skin: Reports: No Symptoms Psychiatric: Reports: No Symptoms Neurological: Reports: No Symptoms Hematologic/Lymphatic: Reports: No Symptoms Immunologic: Reports: No Symptoms L&D Exam - Exam Exam: See Below - Vital Signs Weight: 80.286 kg - OB Specific Contraction Intensity: Mild Movement: Active Heart Tones: Present Presentation: Vertex - Emmanuel Score Emmanuel Score Cervix Position: Posterior Emmanuel Score Consistency: Firm Emmanuel Score Effacement: 31-50% Emmanuel Score Dilation: Closed Emmanuel Score 's Station: -3 Emmanuel Score Total: 1 - Exam General: Alert, Oriented HEENT: PERRLA, Conjunctiva Clear, EACs Clear, EOMI, Hearing Intact, Mucosa Moist & Munden, Nares Patent, Normal Nasal Septum, Posterior Pharynx Clear, TMs Clear Neck: Supple, Trachea Midline Lungs: Clear to Auscultation, Normal Respiratory Effort Cardiovascular: Regular Rate, Regular Rhythm GI/Abdominal Exam: Normal Bowel Sounds, Soft, Non-Tender, No Organomegaly, No Distention, No Abnormal Bruit, No Mass, Pelvis Stable Rectal Exam: Normal Exam, Normal Rectal Tone Genitourinary: Normal external exam, Normal bimanual exam, Normal speculum exam Back Exam: Normal Inspection, Full Range of Motion Extremities: Normal Inspection, Normal Range of Motion, Non-Tender, No Pedal Edema, Normal Capillary Refill Skin: Warm, Dry, Intact Neurological: Cranial Nerves Intact, Reflexes Equal Bilateral Psychiatric: Alert, Normal Affect, Normal Mood - Patient Data Lab Results Last 24 hrs: Laboratory Results - last 24 hr 08/12/17 08/12/17 08/13/17 Range/Units 09:46 09:46 06:31 WBC 10.38 (4.0-11.0) K/uL RBC 4.24 L (4.30-5.90) M/uL Hgb 11.0 L (12.0-16.0) g/dL Hct 34.6 L (36.0-46.0) % MCV 81.6 (80.0-98.0) fL MCH 25.9 L (27.0-32.0) pg MCHC 31.8 (31.0-37.0) g/dL RDW Std Deviation 48.8 (28.0-62.0) fl RDW Coeff of Su 16 H (11.0-15.0) % Plt Count 174 (150-400) K/uL MPV 10.00 (7.40-12.00) fL Nucleated RBC % 0.0 /100WBC Nucleated RBCs # 0 K/uL POC Glucose 77 (60-110) mg/dL Blood Type O POSITIVE Antibody Screen NEGATIVE Result Diagrams: 08/12/17 09:46 Problem List Initiated/Reviewed/Updated: Yes Orders Last 24hrs: Active Orders 24 hr Category Date Time Status Patient Status [ADT] Routine ADT 08/12/17 22:41 Active Non Stress Test [RC] PER UNIT ROUTINE Care 08/12/17 22:41 Active Notify Provider Vital Signs [RC] PRN Care 08/13/17 00:01 Active Procedure Site Prep Instruct [RC] ASDIRECTED Care 08/12/17 22:41 Active Up ad Valeria [RC] ASDIRECTED Care 08/12/17 22:41 Active Verify Patient Consent Obtain [RC] ASDIRECTED Care 08/12/17 22:41 Active Vital Signs [RC] PER UNIT ROUTINE Care 08/12/17 22:41 Active Citric Acid/Sodium Citrate [Bicitra Solution] Med 08/12/17 22:45 Active 30 ml PO .ONCE Lactated Ringers [Ringers, Lactated] 1,000 ml Med 08/12/17 22:45 Active IV .BOLUS Oxytocin/0.9 % Sodium Chloride [Oxytocin 30 Unit/500 ML Med 08/12/17 22:45 Active -NS] 30 unit in 500 ml IV TITRATE Sodium Chloride 0.9% [Saline Flush] Med 08/12/17 22:41 Active 10 ml FLUSH ASDIRECTED PRN Sodium Chloride 0.9% [Saline Flush] Med 08/12/17 22:41 Active 2.5 ml FLUSH ASDIRECTED PRN ceFAZolin [Ancef] 2 gm Med 08/13/17 07:49 Active Premix Bag 1 bag IV ONETIME Peripheral IV Insertion Adult [OM.PC] Routine Oth 08/12/17 22:41 Ordered Schedule Procedure [COMM] Per Unit Routine Oth 08/12/17 22:41 Ordered Resuscitation Status Routine Resus Stat 08/12/17 22:41 Ordered Medication Orders Citric Acid/Sodium Citrate (Bicitra Solution) 30 ml PO .ONCE KAYLA Lactated Ringer's (Ringers, Lactated) 1,000 mls @ 500 mls/hr IV .BOLUS KAYLA Last Admin: 08/13/17 07:50 Dose: 999 mls/hr Infusion: 08/13/17 07:37 Dose: 750 mls/hr Admin: 08/13/17 06:17 Dose: 750 mls/hr Infusion: 08/13/17 06:17 Dose: 999 mls/hr Admin: 08/13/17 05:44 Dose: 999 mls/hr Oxytocin/Sodium Chloride (Oxytocin 30 Unit/500 Ml-Ns) 30 unit in 500 mls @ 250 mls/hr IV TITRATE KAYLA Cefazolin Sodium/Dextrose 2 gm (/ Premix) 50 mls @ 100 mls/hr IV ONETIME ONE Stop: 08/13/17 08:18 Sodium Chloride (Saline Flush) 10 ml FLUSH ASDIRECTED PRN PRN Reason: Keep Vein Open Sodium Chloride (Saline Flush) 2.5 ml FLUSH ASDIRECTED PRN PRN Reason: Keep Vein Open Assessment/Plan Comment:: Iup 38 wks gestational diabetic admitted for elective repeat C/section.
[2017-08-13] MEDS ORDERED: Nalbuphine 10 MG/1 ML Vial IVPUSH PRN (08:12)
[2017-08-13] MEDS ORDERED: diphenhydrAMINE 50 MG/ML SDV IVPUSH PRN ×2 (08:12→08:44)
[2017-08-13] MEDS ORDERED: fentaNYL 100 MCG/2 ML SDV IVPUSH PRN (08:12)
[2017-08-13] MEDS ORDERED: Acetaminophen/oxyCODONE 325-5 MG Tab PO PRN ×3 (08:12→19:12)
[2017-08-13] MEDS ORDERED: Ondansetron 4 MG/2 ML SDV IV PRN (08:44)
[2017-08-13] MEDS ORDERED: Lanolin 100% Cream 7 GM Tube TOP PRN (08:44)
[2017-08-13] MEDS ORDERED: Bisacodyl 10 MG Supp RECTAL PRN (08:44)
[2017-08-13] MEDS ORDERED: Lactated Ringers 1,000 ML IV SCH (08:45)
--- NOTE | 2017-08-13 08:49 | PCM.OPNOTE ---
- General Post-Op/Procedure Note Date of Surgery/Procedure: 08/27/17 Operative Procedure(s): Repeat C/Section Pre Op Diagnosis: Iup #38 wks ,gestational DM Repeat C/section Post-Op Diagnosis: Same Anesthesia Technique: Spinal Primary Surgeon: Nate Brown Polysomnographer: Sandra Silva EBL in mLs: 700 Complications: None Condition: Good Free Text/Narrative:: Intake & Output 08/12/17 08/13/17 08/13/17 22:59 06:59 14:59 Intake Total 1000 Balance 1000
--- NOTE | 2017-08-13 09:16 | OR ---
SURGEON: Nate Brown MD DATE OF PROCEDURE: PREOPERATIVE DIAGNOSES: 1. Intrauterine , 38 weeks. 2. Gestational diabetics. 3. Previous section. POSTOPERATIVE DIAGNOSES: 1. Intrauterine , 38 weeks. 2. Gestational diabetics. 3. Previous section. OPERATION PERFORMED: Repeat low transverse section. SENIOR BACKUP ADMINISTRATOR: OWEN Jacob. ANESTHESIA: Spinal, Jah Hansen and Dr. Silva. ESTIMATED BLOOD LOSS: 700 mL. COMPLICATIONS: None. FINDINGS: Male fetus. scores reported to be 8 and 9. Weight is not available. Normal uterus, tubes, and ovaries. INDICATIONS FOR SURGERY: The patient is followed in our clinic. She had a previous section. She have gestational diabetes. She have no complications prenatally. She is admitted for elective repeat section, a 38 weeks because of her diabetes. PROCEDURE IN DETAIL: The patient was brought to the OR, properly identified, and after adequate level of spinal anesthesia, with a Stoner catheter in the bladder, the patient was prepped and draped in sterile fashion as usual. After taking time out, low transverse Pfannenstiel skin incision in the old scar was done. The Cyrus's fascia and rectus fascia were opened in direction of the incision. The 2 recti muscles were and peritoneal cavity was entered. A low transverse uterine incision was done, extended manually with the hand. The fetus was in a vertex position. Delivered without any problem. He cried immediately. Later on, the score reported to be 8 and 9. The weight is not available. The placenta delivered spontaneous, complete, and intact and repair of the lower uterine segment was done with 2-0 Vicryl continuous interlocking in 2 layers. The peritoneal cavity evacuated completely from all blood and blood clot and closed with 3-0 Vicryl continuous. The rectus fascia was closed with #1 PDS double strand continuous. The Cyrus's fascia with 3-0 Vicryl continuous and the skin with 3-0 in a subcuticular fashion. Instrument and sponge count were correct. The patient tolerated the procedure well, went to recovery room in stable general condition. HANNAH / WIN /[id number]
[2017-08-13] MEDS: Ketorolac 30 MG/ML SDV IVPUSH SCH ×3 (09:30→20:49)
--- NOTE | 2017-08-13 09:55 | PCM.POSTAN ---
POST ANESTHESIA ASSESSMENT - MENTAL STATUS Mental Status: Alert, Oriented - RESPIRATORY Respiratory Status: Respiratory Rate WNL, Airway Patent, O2 Saturation Stable - CARDIOVASCULAR CV Status: Pulse Rate WNL, Blood Pressure Stable - GASTROINTESTINAL GI Status: No Symptoms - POST OP HYDRATION Hydration Status: Adequate & Stable
[2017-08-13] MEDS: Docusate Sodium 100 MG Cap PO SCH ×2 (11:49→20:51)
--- NOTE | 2017-08-13 17:15 | PCM48HPAN ---
Post Anesthesia Note - EVALUATION WITHIN 48HRS OF ANESTHETIC Vital Signs in Normal Range: Yes Patient Participated in Evaluation: Yes Respiratory Function Stable: Yes Airway Patent: Yes Cardiovascular Function Stable: Yes Hydration Status Stable: Yes Pain Control Satisfactory: Yes Nausea and Vomiting Control Satisfactory: Yes Mental Status Recovered: Yes - COMMENTS/OBSERVATIONS Free Text/Narrative:: Denies any complaints. States has been up walking.
[2017-08-14] MEDS: Ketorolac 30 MG/ML SDV IVPUSH SCH ×2 (02:40→09:02)
--- NOTE | 2017-08-14 08:24 | PCM.PNPP ---
- General Info Date of Service: 08/14/17 Admission Dx/Problem (Free Text): Patient Status Order with Admit Dx/Problem 08/12/17 22:41 Patient Status [ADT] Routine Admission Diagnosis/Problem Admission Diagnosis/Problem Planned Functional Status: Reports: Pain Controlled, Tolerating Diet, Ambulating, Urinating - Review of Systems General: Reports: No Symptoms HEENT: Reports: No Symptoms Pulmonary: Reports: No Symptoms Cardiovascular: Reports: No Symptoms Gastrointestinal: Reports: No Symptoms Genitourinary: Reports: No Symptoms Musculoskeletal: Reports: No Symptoms Skin: Reports: No Symptoms Neurological: Reports: No Symptoms Psychiatric: Reports: No Symptoms - General Info Date of Service: 08/14/17 - Patient Data Vital Signs - Most Recent: Last Vital Signs Temp 36.6 C 08/14/17 04:00 Pulse 78 08/14/17 06:00 Resp 16 08/14/17 06:00 BP 123/70 08/14/17 04:00 Pulse Ox 96 08/14/17 06:00 Weight - Most Recent: 80.286 kg I&O - Last 24 Hours: Intake & Output 08/13/17 08/14/17 08/14/17 22:59 06:59 14:59 Intake Total 2101 1900 Output Total 275 2500 Balance 1826 -600 Lab Results - Last 24 Hours: Laboratory Results - last 24 hr 08/14/17 Range/Units 05:23 Hgb 9.8 L (12.0-16.0) g/dL Hct 31.3 L (36.0-46.0) % Med Orders - Current: Current Medications Bisacodyl (Dulcolax) 10 mg RECTAL .ONCE PRN PRN Reason: Constipation Citric Acid/Sodium Citrate (Bicitra Solution) 30 ml PO .ONCE KAYLA Last Admin: 08/13/17 07:55 Dose: 30 ml Diphenhydramine HCl (Benadryl) 25 mg IVPUSH Q6H PRN PRN Reason: Itching or Nausea Docusate Sodium (Colace) 100 mg PO BID KAYLA Last Admin: 08/13/17 20:51 Dose: 100 mg Emollient Ointment (Lansinoh Hpa) 0 gm TOP ASDIRECTED PRN PRN Reason: Sore Nipples Lactated Ringer's (Ringers, Lactated) 1,000 mls @ 500 mls/hr IV .BOLUS KAYLA Last Admin: 08/13/17 07:50 Dose: 999 mls/hr Oxytocin/Sodium Chloride (Oxytocin 30 Unit/500 Ml-Ns) 30 unit in 500 mls @ 250 mls/hr IV TITRATE [facility] Lactated Ringer's (Ringers, Lactated) 1,000 mls @ 125 mls/hr IV ASDIRECTED [facility] Last Admin: 08/13/17 18:45 Dose: 125 mls/hr Ibuprofen (Motrin) 800 mg PO Q8H PRN PRN Reason: mild pain or fever Ketorolac Tromethamine (Toradol) 30 mg IVPUSH Q6H [facility] Stop: 08/14/17 08:46 Last Admin: 08/14/17 02:40 Dose: 30 mg Ondansetron HCl (Zofran) 4 mg IV Q4H PRN PRN Reason: Nausea/Vomiting Oxycodone/Acetaminophen (Percocet 325-5 Mg) 1 tab PO ONETIME PRN PRN Reason: Pain (moderate 4-6) Oxycodone/Acetaminophen (Percocet 325-5 Mg) 1 tab PO Q4H PRN PRN Reason: Pain (moderate 4-6) Oxycodone/Acetaminophen (Percocet 325-5 Mg) 2 tab PO Q4H PRN PRN Reason: Pain (moderate 4-6) Oxycodone/Acetaminophen (Percocet 325-5 Mg) 1 tab PO Q4H PRN PRN Reason: Pain Last Admin: 08/14/17 05:38 Dose: 1 tab Sodium Chloride (Saline Flush) 10 ml FLUSH ASDIRECTED PRN PRN Reason: Keep Vein Open Sodium Chloride (Saline Flush) 2.5 ml FLUSH ASDIRECTED PRN PRN Reason: Keep Vein Open Discontinued Medications Diphenhydramine HCl (Benadryl) 25 mg IVPUSH Q4H PRN PRN Reason: Itching Stop: 08/14/17 08:13 Fentanyl (Sublimaze) 50 mcg IVPUSH Q5M PRN PRN Reason: Pain (severe 7-10) Stop: 08/14/17 08:13 Cefazolin Sodium/Dextrose 2 gm (/ Premix) 50 mls @ 100 mls/hr IV ONETIME ONE Stop: 08/13/17 08:18 Last Admin: 08/13/17 10:56 Dose: Not Given Nalbuphine HCl (Nubain) 5 mg IVPUSH Q3H PRN PRN Reason: Pruritis Stop: 08/14/17 08:13 Octyl Cyanoacrylate (Dermabond Advance) Confirm Administered Dose 1 applic .ROUTE .STK-MED ONE Stop: 08/13/17 07:41 - Interaction Disposition, : [place] in Room with Family Interaction: Holding Infant Infant Feeding: Bottle Fed Infant (until her milk comes in.) Support Person: - Recovery Exam Fundal Tone: Firm Fundal Level: 1 Fingerbreadths Below Umbilicus Fundal Placement: Midline Lochia Amount: Scant, Small Lochia Color: Rubra/Red Perineum Description: Intact, Minimal Bruising/Swelling Episiotomy/Laceration: None Bladder Status: Indwelling Catheter in Place Urinary Elimination: Indwelling Catheter - Exam General: Alert, Oriented, Cooperative Lungs: Clear to Auscultation, Normal Respiratory Effort Cardiovascular: Regular Rate, Regular Rhythm, No Murmurs GI/Abdominal Exam: Soft, Non-Tender Extremities: Normal Range of Motion, Non-Tender, No Pedal Edema, Normal Capillary Refill Skin: Warm, Dry, Intact Wound/Incisions: Healing Well Neurological: No New Focal Deficit, Normal Speech, Normal Tone Psy/Mental Status: Alert, Normal Affect, Normal Mood - Problem List & Annotations (1) Supervision of normal IUP (intrauterine ) in multigravida SNOMED Code(s): 545047544, 422990637 Code(s): Z34.80 - ENCOUNTER FOR SUPRVSN OF NORMAL , UNSP TRIMESTER Status: Acute Priority: High Current Visit: Yes Qualifiers: Trimester: third trimester Qualified Code(s): Z34.83 - Encounter for supervision of other normal , third trimester (2) delivery delivered SNOMED Code(s): 748896567 Code(s): O82 - ENCOUNTER FOR DELIVERY WITHOUT INDICATION Status: Acute Priority: High Current Visit: Yes - Problem List Review Problem List Initiated/Reviewed/Updated: Yes - Assessment Assessment:: PP day 1 VSS, AF, FF -2, lochia small, no complaints. Stable - Plan Plan:: Iup 38 wks gestational diabetic admitted for elective repeat C/section. PP day 1 continue pp plan of care. Encourage ambulation
[2017-08-14] MEDS: Docusate Sodium 100 MG Cap PO SCH ×2 (09:00→20:35)
[2017-08-14] MEDS: Ibuprofen 800 MG Tab PO PRN (15:45)
[2017-08-14] MEDS: Acetaminophen/oxyCODONE 325-5 MG Tab PO PRN (20:32)
[2017-08-15] MEDS: Ibuprofen 800 MG Tab PO PRN (04:11)
[2017-08-15] MEDS: Acetaminophen/oxyCODONE 325-5 MG Tab PO PRN (08:20)
[2017-08-15] MEDS: Docusate Sodium 100 MG Cap PO SCH (08:22)
--- NOTE | 2017-08-15 08:36 | PCM.DCSUM1 ---
Discharge Summary - Hospital Course Free Text/Narrative:: Discharge home with infant. Follow up in 10 days or sooner if needed. - Discharge Data Discharge Date: 08/15/17 Discharge Disposition: Home, Self-Care 01 Condition: Good - Discharge Diagnosis/Problem(s) (1) Supervision of normal IUP (intrauterine ) in multigravida SNOMED Code(s): 743817730, 864466674 ICD Code: Z34.80 - ENCOUNTER FOR SUPRVSN OF NORMAL , UNSP TRIMESTER Status: Acute Priority: High Current Visit: Yes Qualifiers: Trimester: third trimester Qualified Code(s): Z34.83 - Encounter for supervision of other normal , third trimester (2) delivery delivered SNOMED Code(s): 532712919 ICD Code: O82 - ENCOUNTER FOR DELIVERY WITHOUT INDICATION Status: Acute Priority: High Current Visit: Yes - Patient Summary/Data Operative Procedure(s) Performed: Repeat C/Section - Patient Instructions Diet: Usual Diet as Tolerated Activity: As Tolerated, No Strenuous Activities, Rest and Relax Today Driving: May Drive Today Showering/Bathing: May Shower Wound/Incision Care: Keep Operative Site/Wound Site Clean and Dry Notify Provider of: Fever, Increased Pain, Swelling and Redness, Nausea and/or Vomiting Other/Special Instructions: Discharge home with infant. Follow up in 10 days or sooner if needed. - Discharge Plan Prescriptions/Med Rec: Acetaminophen/oxyCODONE [Percocet 325-5 MG] 1 - 2 tab PO Q6H PRN #30 tablet PRN Reason: Abdominal Pain Ibuprofen [IJD: Ibuprofen] 800 mg PO Q8H PRN #90 tablet PRN Reason: Abdominal Pain Home Medications: Home Meds Acetaminophen [Tylenol] 325 mg PO DAILY PRN 03/13/17 [History] Pnv No.122/Iron/Folic Acid [ Multi Tablet] 1 cap PO DAILY 03/13/17 [ History] Ferrous Sulfate [Iron] 1 tab PO DAILY 08/12/17 [History] Acetaminophen/oxyCODONE [Percocet 325-5 MG] 1 - 2 tab PO Q6H PRN #30 tablet 05/25 [Rx] Ibuprofen [IJD: Ibuprofen] 800 mg PO Q8H PRN #90 tablet 08/15/17 [Rx] Referrals: [facility] [Outside] Nate Brown MD [Physician] - (1 week- August 31 @ 2:00pm w/ week- September 23 @ 10:30am w/ Dr. Brown ) - General Info Date of Service: 08/15/17 Admission Dx/Problem (Free Text: Patient Status Order with Admit Dx/Problem 08/12/17 22:41 Patient Status [ADT] Routine Admission Diagnosis/Problem Admission Diagnosis/Problem Planned Functional Status: Reports: Pain Controlled, Tolerating Diet, Ambulating, Urinating - Review of Systems General: Reports: No Symptoms HEENT: Reports: No Symptoms Pulmonary: Reports: No Symptoms Cardiovascular: Reports: No Symptoms Gastrointestinal: Reports: No Symptoms Genitourinary: Reports: No Symptoms Musculoskeletal: Reports: No Symptoms Skin: Reports: No Symptoms Neurological: Reports: No Symptoms Psychiatric: Reports: No Symptoms - Patient Data Vitals - Most Recent: Last Vital Signs Temp 36.4 C 08/15/17 04:11 Pulse 89 08/15/17 04:11 Resp 18 08/15/17 04:11 BP 116/55 L 08/15/17 04:11 Pulse Ox 98 08/15/17 04:11 Weight - Most Recent: 80.286 kg Med Orders - Current: Current Medications Bisacodyl (Dulcolax) 10 mg RECTAL .ONCE PRN PRN Reason: Constipation Citric Acid/Sodium Citrate (Bicitra Solution) 30 ml PO .ONCE KAYLA Last Admin: 08/13/17 07:55 Dose: 30 ml Diphenhydramine HCl (Benadryl) 25 mg IVPUSH Q6H PRN PRN Reason: Itching or Nausea Docusate Sodium (Colace) 100 mg PO BID KAYLA Last Admin: 08/15/17 08:22 Dose: 100 mg Emollient Ointment (Lansinoh Hpa) 0 gm TOP ASDIRECTED PRN PRN Reason: Sore Nipples Lactated Ringer's (Ringers, Lactated) 1,000 mls @ 500 mls/hr IV .BOLUS KAYLA Last Admin: 08/13/17 07:50 Dose: 999 mls/hr Oxytocin/Sodium Chloride (Oxytocin 30 Unit/500 Ml-Ns) 30 unit in 500 mls @ 250 mls/hr IV TITRATE KAYLA Lactated Ringer's (Ringers, Lactated) 1,000 mls @ 125 mls/hr IV ASDIRECTED KAYLA Last Admin: 08/13/17 18:45 Dose: 125 mls/hr Ibuprofen (Motrin) 800 mg PO Q8H PRN PRN Reason: mild pain or fever Last Admin: 08/15/17 04:11 Dose: 800 mg Ondansetron HCl (Zofran) 4 mg IV Q4H PRN PRN Reason: Nausea/Vomiting Oxycodone/Acetaminophen (Percocet 325-5 Mg) 1 tab PO ONETIME PRN PRN Reason: Pain (moderate 4-6) Oxycodone/Acetaminophen (Percocet 325-5 Mg) 1 tab PO Q4H PRN PRN Reason: Pain (moderate 4-6) Last Admin: 08/14/17 16:50 Dose: 1 tab Oxycodone/Acetaminophen (Percocet 325-5 Mg) 2 tab PO Q4H PRN PRN Reason: Pain (moderate 4-6) Last Admin: 08/15/17 08:20 Dose: 2 tab Oxycodone/Acetaminophen (Percocet 325-5 Mg) 1 tab PO Q4H PRN PRN Reason: Pain Last Admin: 08/14/17 05:38 Dose: 1 tab Sodium Chloride (Saline Flush) 10 ml FLUSH ASDIRECTED PRN PRN Reason: Keep Vein Open Sodium Chloride (Saline Flush) 2.5 ml FLUSH ASDIRECTED PRN PRN Reason: Keep Vein Open Discontinued Medications Diphenhydramine HCl (Benadryl) 25 mg IVPUSH Q4H PRN PRN Reason: Itching Stop: 08/14/17 08:13 Fentanyl (Sublimaze) 50 mcg IVPUSH Q5M PRN PRN Reason: Pain (severe 7-10) Stop: 08/14/17 08:13 Cefazolin Sodium/Dextrose 2 gm (/ Premix) 50 mls @ 100 mls/hr IV ONETIME ONE Stop: 08/13/17 08:18 Last Admin: 08/13/17 10:56 Dose: Not Given Ketorolac Tromethamine (Toradol) 30 mg IVPUSH Q6H KAYLA Stop: 08/14/17 08:46 Last Admin: 08/14/17 09:02 Dose: 30 mg Nalbuphine HCl (Nubain) 5 mg IVPUSH Q3H PRN PRN Reason: Pruritis Stop: 08/14/17 08:13 Octyl Cyanoacrylate (Dermabond Advance) Confirm Administered Dose 1 applic .ROUTE .[facility] ONE Stop: 08/13/17 07:41 - Exam General: Reports: Alert, Oriented, Cooperative, No Acute Distress Lungs: Reports: Clear to Auscultation, Normal Respiratory Effort Cardiovascular: Reports: Regular Rate, Regular Rhythm, No Murmurs (Female) Exam: Vaginal Bleeding Rectal (Female) Exam: Deferred Back Exam: Reports: Full Range of Motion Extremities: Normal Range of Motion, Non-Tender, No Pedal Edema, Normal Capillary Refill Skin: Reports: Warm, Dry, Intact Wound/Incisions: Reports: Healing Well, No Drainage Neurological: Reports: No New Focal Deficit, Normal Gait, Normal Speech, Normal Tone Psy/Mental Status: Reports: Alert, Normal Affect, Normal Mood *Q Meaningful Use (DIS) - VTE *Q VTE Criteria *Q: - Stroke *Q Stroke Criteria *Q: - AMI *Q AMI Criteria *Q:
[2017-08-15 10:08] VITALS: BP 104/63
== END 2017-08-15 12:20 | disposition home or self-care (01) | DRG 540 ==
LOC: MW.OB 05:14 → EDSTATUS 08:00 → MW.OB 08:55
PROVIDERS: ADMIT Obstetrics & Gynecology; ATTEND Obstetrics & Gynecology
PROC: 10D00Z1 Extraction of Products of Conception, Low, Open Approach (ICD-10-PCS; principal; 2017-08-13)
DX: O24.429 Gestational diabetes mellitus in childbirth, unspecified control (principal); Z3A.38 38 weeks gestation of pregnancy; Z37.0 Single live birth
CPT/HCPCS: 01961; 36415; 59025; 82962; 85014; 85018; 85027; 86850; 86900; 86901; A9270-GY; J0690; J1885; J2250; J2270; J2405; J2590; J2765; J7120

== ENCOUNTER 2017-09-03 15:24 | Emergency (ER) | payer BC ==
[2017-09-03 15:45] VITALS: BP 152/68
--- NOTE | 2017-09-03 15:47 | EDM.PDOC ---
ED HPI GENERAL MEDICAL PROBLEM - General Chief Complaint: Abdominal Pain Stated Complaint: ABD PAIN Time Seen by Provider: 09/03/17 15:25 Source of Information: Reports: Patient History Limitations: Reports: No Limitations - History of Present Illness INITIAL COMMENTS - FREE TEXT/NARRATIVE: History of present illness: []Patient status post on August and she just started having pain below her incision on the right side. He also has burning with urination. Had fever today and took Motrin and it broke. Review of systems: As per history of present illness and below otherwise all systems reviewed and negative. Past medical history: As per history of present illness and as reviewed below otherwise noncontributory. Surgical history: As per history of present illness and as reviewed below otherwise noncontributory. Social history: No reported history of drug or alcohol abuse. Family history: As per history of present illness and as reviewed below otherwise noncontributory. Physical exam: General: Well developed, well nourished in NAD HEENT: Atraumatic, normocephalic, pupils reactive, negative for conjunctival pallor or scleral icterus, mucous membranes moist, throat clear, neck supple, nontender, trachea midline. Lungs: Clear to auscultation, breath sounds equal bilaterally, chest nontender. Heart: S1S2, regular, negative for clicks, rubs, or JVD. Abdomen: incision is intact there is a small erythematous area on the right side below the incision there is no drainage, fluctuance or dehiscence. Soft, nondistended, tenderness localized to below the incision on the right rebound or guarding. Negative for masses or hepatosplenomegaly. Negative for costovertebral tenderness. Pelvis: Stable nontender. Genitourinary: Deferred. Rectal: Deferred. Extremities: Atraumatic, negative for cords or calf pain. Neurovascular unremarkable. Neuro: Awake, alert, oriented. Cranial nerves II through XII unremarkable. Cerebellum unremarkable. Motor and sensory unremarkable throughout. Exam nonfocal. Diagnostics: []UA positive for UTI Therapeutics: [] Impression: []UTI Plan: []Keflex 4 times a day, follow up with OB for wound check tomorrow or early next week. Return if increased fevers worsening pain or change in wound Definitive disposition and diagnosis as appropriate pending reevaluation and review of above. Right Lower Abdominal Pain Score (Numeric/FACES): 10 - Related Data Allergies Allergy/AdvReac Type Severity Reaction Status Date / Time No Known Allergies Allergy Verified 09/03/17 15:47 Home Meds: Home Meds Pnv No.122/Iron/Folic Acid [ Multi Tablet] 1 cap PO DAILY 03/13/17 [ History] Ferrous Sulfate [Iron] 1 tab PO DAILY 08/12/17 [History] Ibuprofen [IJD: Ibuprofen] 800 mg PO Q8H PRN #90 tablet 08/15/17 [Rx] Cephalexin [Keflex] 500 mg PO Q6HR #28 cap 09/03/17 [Rx] Past Medical History - Past Health History Medical/Surgical History: Denies Medical/Surgical History HEENT History: Reports: Other (See Below) Other HEENT History: wears glasses/contacts Cardiovascular History: Reports: None Respiratory History: Reports: None Gastrointestinal History: Reports: Other (See Below) Other Gastrointestinal History: occasional heartburn during Genitourinary History: Reports: None [employer] History: Reports: Musculoskeletal History: Reports: None Neurological History: Reports: Other (See Below) Other Neuro History: bells palsy (2013) Psychiatric History: Reports: None Endocrine/Metabolic History: Reports: Diabetes, Gestational, Obesity/BMI 30+ Other Endocrine/Metabolic History: gestational diabetes controlled with diet Hematologic History: Reports: Blood Transfusion(s) Other Hematologic History: blood transfusion after previous Immunologic History: Reports: None Oncologic (Cancer) History: Reports: None Dermatologic History: Reports: None - Infectious Disease History Infectious Disease History: Reports: None - Past Surgical History Female Surgical History: Reports: Section Social & Family History - Family History Family Medical History: Unobtainable - Tobacco Use Smoking Status *Q: Never Smoker Second Hand Smoke Exposure: No - Caffeine Use Caffeine Use: Reports: Energy Drinks Caffeine Use Comment: 2drinks/week - Recreational Drug Use Recreational Drug Use: No Drug Use in Last 12 Months: No ED ROS GENERAL - Review of Systems Review Of Systems: See Below (See history of present illness) ED EXAM, GI/ABD - Physical Exam Exam: See Below (See history of present illness) Course - Vital Signs Last Recorded V/S: Last Vital Signs Temp 36.3 C 09/03/17 15:41 Pulse 118 H 09/03/17 15:41 Resp 20 09/03/17 15:41 BP 152/68 H 09/03/17 15:41 Pulse Ox 97 09/03/17 15:41 - Orders/Labs/Meds Labs: Laboratory Tests 09/03/17 Range/Units 16:09 Urine Color YELLOW Urine Appearance SLT CLOUDY Urine pH 6.0 (5.0-8.0) Ur Specific [place] 1.025 (1.001-1.035) Urine Protein NEGATIVE (NEGATIVE) mg/dL Urine Glucose (UA) NEGATIVE (NEGATIVE) mg/dL Urine Ketones NEGATIVE (NEGATIVE) mg/dL Urine Occult Blood TRACE-INTACT (NEGATIVE) Urine Nitrite NEGATIVE (NEGATIVE) Urine Bilirubin NEGATIVE (NEGATIVE) Urine Urobilinogen 0.2 (<2.0) EU/dL Ur Leukocyte Esterase TRACE (NEGATIVE) Urine RBC 0-2 (0-2/HPF) Urine WBC 7-9 (0-5/HPF) Ur Epithelial Cells MODERATE (NONE-FEW) Urine Bacteria FEW (NEGATIVE) Urine Mucus MODERATE (NONE-MOD) Departure - Departure Time of Disposition: 16:47 Disposition: Home, Self-Care 01 Condition: Good Clinical Impression: UTI (urinary tract infection) Qualifiers: Urinary tract infection type: site unspecified Hematuria presence: without hematuria Qualified Code(s): N39.0 - Urinary tract infection, site not specified - Discharge Information Prescriptions: Cephalexin [Keflex] 500 mg PO Q6HR #28 cap Referrals: Nate Brown MD [Primary Care Provider] - Forms: ED Department Discharge Additional Instructions: The following information is given to patients seen in the emergency department who are being discharged to home. This information is to outline your options for follow-up care. We provide all patients seen in our emergency department with a follow-up referral. The need for follow-up, as well as the timing and circumstances, are variable depending upon the specifics of your emergency department visit. If you don't have a primary care physician on staff, we will provide you with a referral. We always advise you to contact your personal physician following an emergency department visit to inform them of the circumstance of the visit and for follow-up with them and/or the need for any referrals to a consulting specialist. The emergency department will also refer you to a specialist when appropriate. This referral assures that you have the opportunity for follow-up care with a specialist. All of these measure are taken in an effort to provide you with optimal care, which includes your follow-up. Under all circumstances we always encourage you to contact your private physician who remains a resource for coordinating your care. When calling for follow-up care, please make the office aware that this follow-up is from your recent emergency room visit. If for any reason you are refused follow-up, please contact the [facility] Emergency Department at and asked to speak to the emergency department charge nurse. Keflex 4 times a day continue Motrin and Tylenol for pain use warm packs if needed follow-up with OB return if symptoms worsens or change [facility] [address] [place] [id number]
== END 2017-09-03 17:01 | disposition home or self-care (01) ==
LOC: MW.ED 15:24
DX: N39.0 Urinary tract infection, site not specified (principal); Z79.899 Other long term (current) drug therapy
CPT/HCPCS: 81001; 99283; 99284

== ENCOUNTER 2017-10-29 16:09 | Observation (INO) | payer BC ==
[2017-10-29] MEDS ORDERED: Sodium Chloride 0.9% 2.5 ML Syringe FLUSH PRN (16:23)
[2017-10-29] MEDS ORDERED: Ondansetron 4 MG/2 ML SDV IVPUSH PRN (16:23)
[2017-10-29] MEDS ORDERED: Sodium Chloride 0.9% 10 ML Syringe FLUSH PRN (16:23)
--- NOTE | 2017-10-29 16:39 | PCM.HP ---
H&P History of Present Illness - General Date of Service: 10/29/17 Admit Problem/Dx: Admission Diagnosis/Problem Admission Diagnosis/Problem Cellulitis and abscess Source of Information: Patient History Limitations: Reports: No Limitations - History of Present Illness Initial Comments - Free Text/Narative: Patient is a 27 year old female who presented to her PCP office with inflammation and pain along a previous incision. This started a couple days ago and has continued to get worse. She denies every having an abscess or boil ever before. She had an uncomplicated 3 months ago. The wound healed well. She tried taking ibuprofen and muscle relaxers at home but the pain was too much. She was seen in clinic and noted to have edema, pain and swelling along the mid-portion of her well healed incision extending up her abdomen. She denies fevers and chills. - Related Data Allergies/Adverse Reactions: Allergies Allergy/AdvReac Type Severity Reaction Status Date / Time No Known Allergies Allergy Verified 09/03/17 15:47 Home Medications: Home Meds Pnv No.122/Iron/Folic Acid [ Multi Tablet] 1 cap PO DAILY 03/13/17 [ History] Ferrous Sulfate [Iron] 1 tab PO DAILY 08/12/17 [History] Ibuprofen [IJD: Ibuprofen] 800 mg PO Q8H PRN #90 tablet 08/15/17 [Rx] Cephalexin [Keflex] 500 mg PO Q6HR #28 cap 09/03/17 [Rx] Past Medical History - Past Health History Medical/Surgical History: Denies Medical/Surgical History HEENT History: Reports: Other (See Below) Other HEENT History: wears glasses/contacts Cardiovascular History: Reports: None Respiratory History: Reports: None Gastrointestinal History: Reports: Other (See Below) Other Gastrointestinal History: occasional heartburn during Genitourinary History: Reports: None 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: Musculoskeletal History: Reports: None Neurological History: Reports: Other (See Below) Other Neuro History: bells palsy (2013) Psychiatric History: Reports: None Endocrine/Metabolic History: Reports: Diabetes, Gestational, Obesity/BMI 30+ Other Endocrine/Metabolic History: gestational diabetes controlled with diet Hematologic History: Reports: Blood Transfusion(s) Other Hematologic History: blood transfusion after previous Immunologic History: Reports: None Oncologic (Cancer) History: Reports: None Dermatologic History: Reports: None - Infectious Disease History Infectious Disease History: Reports: None - Past Surgical History Female Surgical History: Reports: Section Social & Family History - Family History Family Medical History: Unobtainable - Tobacco Use Smoking Status *Q: Never Smoker Second Hand Smoke Exposure: No - Caffeine Use Caffeine Use: Reports: Energy Drinks Caffeine Use Comment: 2drinks/week - Recreational Drug Use Recreational Drug Use: No Drug Use in Last 12 Months: No H&P Review of Systems - Review of Systems: Review Of Systems: ROS reveals no pertinent complaints other than HPI. Exam - Exam Exam: See Below - Exam General: Alert, Oriented HEENT: Mucosa Moist & [place] Neck: Supple Lungs: Clear to Auscultation, Normal Respiratory Effort Cardiovascular: Regular Rate, Regular Rhythm GI/Abdominal Exam: Soft, Tender (Tender along previous scar. ), Other (Inflamation and edema along mid-porition of old scar extending up along the anterior abdominal wall) Extremities: Normal Inspection, Normal Range of Motion *Q Meaningful Use (ADM) - VTE *Q VTE Criteria *Q: - Stroke *Q Stroke Criteria *Q: - AMI *Q AMI Criteria *Q: - Problem List (1) Cellulitis SNOMED Code(s): 791652341 ICD Code: L03.90 - CELLULITIS, UNSPECIFIED Status: Acute Current Visit: Yes (2) Abscess SNOMED Code(s): 103546511 ICD Code: L02.91 - CUTANEOUS ABSCESS, UNSPECIFIED Status: Acute Current Visit: Yes Problem List Initiated/Reviewed/Updated: Yes Orders Last 24hrs: Active Orders 24 hr Category Date Time Status Patient Status [ADT] Routine ADT 10/29/17 16:23 Ordered Antiembolic Devices [RC] PER UNIT ROUTINE Care 10/29/17 16:26 Ordered Incentive Spirometry [RT Incentive Spirometry] [RC] Care 10/29/17 16:26 Ordered ASDIRECTED Intake and Output [RC] QSHIFT Care 10/29/17 16:24 Ordered Oxygen Therapy [RC] PRN Care 10/29/17 16:23 Ordered Up ad Valeria [RC] ASDIRECTED Care 10/29/17 16:23 Ordered Vital Signs [RC] PER UNIT ROUTINE Care 10/29/17 16:23 Ordered Nothing Per Oral Diet [DIET] Diet 10/29/17 Breakfast Ordered CBC WITH AUTO DIFF [HEME] Routine Lab 10/29/17 16:23 Ordered HCG QUALITATIVE,SERUM [CHEM] Routine Lab 10/29/17 16:26 Ordered Lactated Ringers @ 125 MLS/HR(1000ml) Med 10/29/17 16:30 Ordered Lactated Ringers [Ringers, Lactated] 1,000 ml IV ASDIRECTED Ondansetron [Zofran] Med 10/29/17 16:23 Ordered 4 mg IVPUSH Q6H PRN Piperacillin/Tazobactam [Piperacil-Tazobact] 3.375 gm Med 10/29/17 16:30 Ordered Sodium Chloride 0.9% [Normal Saline] 50 ml IV Q8H Sodium Chloride 0.9% [Saline Flush] Med 10/29/17 16:23 Ordered 10 ml FLUSH ASDIRECTED PRN Sodium Chloride 0.9% [Saline Flush] Med 10/29/17 16:23 Ordered 2.5 ml FLUSH ASDIRECTED PRN Vancomycin 0.75 gm Med 10/29/17 16:30 Ordered Sodium Chloride 0.9% [Normal Saline] 250 ml IV Q12H Peripheral IV Insertion Adult [OM.PC] Urgent Oth 10/29/17 16:23 Ordered SCD [Sequential Compression Device] [OM.PC] Routine Oth 10/29/17 16:26 Ordered Resuscitation Status Routine Resus Stat 10/29/17 16:23 Ordered Medication Orders Lactated Ringer's (Ringers, Lactated) 1,000 mls @ 125 mls/hr IV ASDIRECTED [facility] Piperacillin Sod/Tazobactam (Sod 3.375 gm/ Sodium Chloride) 50 mls @ 100 mls/ hr IV Q8H [facility] Vancomycin HCl 0.75 gm/ Sodium (Chloride) 250 mls @ 166 mls/hr IV Q12H [facility] Ondansetron HCl (Zofran) 4 mg IVPUSH Q6H PRN PRN Reason: Nausea/Vomiting Sodium Chloride (Saline Flush) 10 ml FLUSH ASDIRECTED PRN PRN Reason: Keep Vein Open Sodium Chloride (Saline Flush) 2.5 ml FLUSH ASDIRECTED PRN PRN Reason: Keep Vein Open Assessment/Plan Comment:: Ultrasound showed an abscess along the previous scar. This measured approximately 6 cm across. The patient has a fair amount of cellulitis around the incision as well. Will admit for IV antibiotics and an incision and drainage of her abdominal wound under anesthesia. She ate last around 2:30pm. Will admit to the hospital, keep her NPO, start zosyn and vancomycin, check a CBC and take her to the OR at 830pm. We discussed the procedure, the need for dressing changes afterwards, and the risks including bleeding, infection or damage to structures around the area however I feel this will be a superficial area of abscess. Her family asked what the worst case scenario would be. I explained that this abscess could be larger than originally anticipated and will require a larger incision and longer wound healing time. They were concerned about the wound being left open. I explained that closing the wound would lead to re-infection. She and her verbalized understanding and wish to proceed.
[2017-10-29] MEDS ORDERED: Piperacillin/Tazobactam 3.375 GM in Sodium Chloride 0.9% 50 ML IV SCH (16:45)
[2017-10-29] MEDS: Lactated Ringers 1,000 ML IV SCH ×2 (17:51→21:32)
[2017-10-29] MEDS: Piperacillin/Tazobactam 3.375 GM in Sodium Chloride 0.9% 50 ML IV SCH (18:21)
--- NOTE | 2017-10-29 19:30 | PCM.PREANE ---
Preanesthetic Assessment - Anesthesia/Transfusion/Family Hx Anesthesia History: Prior Anesthesia Without Reaction (1st GA due to "I got wild") Family History of Anesthesia Reaction: No Transfusion History: Prior Transfusion Reaction Type of Transfusion Reactions: Reports: Other (see below) Other Type of Transfusion Reaction: patient had burning feeling with blood transfusion - Review of Systems General: No Symptoms Pulmonary: No Symptoms Cardiovascular: No Symptoms Gastrointestinal: No Symptoms (Denies reflux) Neurological: No Symptoms Other: Reports: None - Physical Assessment NPO Status Date: 10/29/17 NPO Status Time: 13:00 O2 Sat by Pulse Oximetry: 98 Respiratory Rate: 16 Vital Signs: Last Vital Signs Temp 97.8 C H 10/29/17 16:30 Pulse 89 10/29/17 16:30 Resp 16 10/29/17 16:30 BP 113/73 10/29/17 16:30 Pulse Ox 98 10/29/17 16:45 Height: 1.52 m Weight: 74.503 kg ASA Class: 2 Mental Status: Alert & Oriented x3 Dentition: Reports: Normal Dentition ROM/Head Extension: Full Lungs: Clear to Auscultation Cardiovascular: Regular Rate - Lab Values: Laboratory Last Values WBC 11.53 K/uL (4.0-11.0) H 10/29/17 16:59 RBC 4.64 M/uL (4.30-5.90) 10/29/17 16:59 Hgb 11.9 g/dL (12.0-16.0) L 10/29/17 16:59 Hct 36.9 % (36.0-46.0) 10/29/17 16:59 MCV 79.5 fL (80.0-98.0) L 10/29/17 16:59 MCH 25.6 pg (27.0-32.0) L 10/29/17 16:59 MCHC 32.2 g/dL (31.0-37.0) 10/29/17 16:59 RDW Std Deviation 41.8 fl (28.0-62.0) 10/29/17 16:59 RDW Coeff of Su 15 % (11.0-15.0) 10/29/17 16:59 Plt Count 307 K/uL (150-400) 10/29/17 16:59 MPV 8.70 fL (7.40-12.00) 10/29/17 16:59 Neut % (Auto) 69.5 % (48.0-80.0) 10/29/17 16:59 Lymph % (Auto) 23.2 % (16.0-40.0) 10/29/17 16:59 [place] % (Auto) 6.2 % (0.0-15.0) 10/29/17 16:59 Eos % (Auto) 0.9 % (0.0-7.0) 10/29/17 16:59 Baso % (Auto) 0.2 % (0.0-1.5) 10/29/17 16:59 Neut # (Auto) 8.0 K/uL (1.4-5.7) H 10/29/17 16:59 Lymph # (Auto) 2.7 K/uL (0.6-2.4) H 10/29/17 16:59 [place] # (Auto) 0.7 K/uL (0.0-0.8) 10/29/17 16:59 Eos # (Auto) 0.1 K/uL (0.0-0.7) 10/29/17 16:59 Baso # (Auto) 0.0 K/uL (0.0-0.1) 10/29/17 16:59 Nucleated RBC % 0.0 /100WBC 10/29/17 16:59 Nucleated RBCs # 0 K/uL 10/29/17 16:59 HCG, Qual NEGATIVE (NEG) 10/29/17 16:59 - Allergies Allergies/Adverse Reactions: Allergies Allergy/AdvReac Type Severity Reaction Status Date / Time No Known Allergies Allergy Verified 09/03/17 15:47 - Acknowledgements Anesthesia Type Planned: General Anesthesia Pt an Appropriate Candidate for the Planned Anesthesia: Yes Alternatives and Risks of Anesthesia Discussed w Pt/Guardian: Yes Pt/Guardian Understands and Agrees with Anesthesia Plan: Yes PreAnesthesia Questionnaire - Past Health History Medical/Surgical History: Denies Medical/Surgical History HEENT History: Reports: Other (See Below) Other HEENT History: wears glasses/contacts Cardiovascular History: Reports: None Respiratory History: Reports: None Gastrointestinal History: Reports: Other (See Below) Other Gastrointestinal History: occasional heartburn during Genitourinary History: Reports: 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 History: Reports: None Neurological History: Reports: Other (See Below) Other Neuro History: bells palsy (2013) Psychiatric History: Reports: None Endocrine/Metabolic History: Reports: Diabetes, Gestational, Obesity/BMI 30+ Other Endocrine/Metabolic History: gestational diabetes controlled with diet Hematologic History: Reports: Blood Transfusion(s) Other Hematologic History: blood transfusion after previous Immunologic History: Reports: None Oncologic (Cancer) History: Reports: None Dermatologic History: Reports: None - Infectious Disease History Infectious Disease History: Reports: None - Past Surgical History Head Surgeries/Procedures: Reports: None Female Surgical History: Reports: Section - SUBSTANCE USE Smoking Status *Q: Never Smoker Second Hand Smoke Exposure: No Date of Last Drink: 10/24/17 Recreational Drug Use History: No - HOME MEDS Home Medications: Home Meds Pnv No.122/Iron/Folic Acid [ Multi Tablet] 1 cap PO DAILY 03/13/17 [ History] Ferrous Sulfate [Iron] 1 tab PO DAILY 08/12/17 [History] Ibuprofen [IJD: Ibuprofen] 800 mg PO Q8H PRN #90 tablet 08/15/17 [Rx] Cephalexin [Keflex] 500 mg PO Q6HR #28 cap 09/03/17 [Rx] - CURRENT (IN HOUSE) MEDS Current Meds: Current Medications Lactated Ringer's (Ringers, Lactated) 1,000 mls @ 125 mls/hr IV ASDIRECTED [facility] Last Admin: 10/29/17 17:51 Dose: 125 mls/hr Vancomycin HCl 1 gm/ Sodium (Chloride) 250 mls @ 166.667 mls/hr IV Q8H [facility] Last Admin: 10/29/17 19:01 Dose: 166.667 mls/hr Piperacillin Sod/Tazobactam (Sod 3.375 gm/ Sodium Chloride) 50 mls @ 100 mls/ hr IV Q8H [facility] Last Admin: 10/29/17 18:21 Dose: 100 mls/hr Ondansetron HCl (Zofran) 4 mg IVPUSH Q6H PRN PRN Reason: Nausea/Vomiting Sodium Chloride (Saline Flush) 10 ml FLUSH ASDIRECTED PRN PRN Reason: Keep Vein Open Sodium Chloride (Saline Flush) 2.5 ml FLUSH ASDIRECTED PRN PRN Reason: Keep Vein Open Discontinued Medications Piperacillin Sod/Tazobactam (Sod 3.375 gm/ Sodium Chloride) 50 mls @ 100 mls/ hr IV Q8H [facility] Last Admin: 10/29/17 18:22 Dose: Not Given Vancomycin HCl 1 gm/ Sodium (Chloride) 250 mls @ 166.667 mls/hr IV Q12H [facility]
[2017-10-29] MEDS ORDERED: fentaNYL 100 MCG/2 ML SDV ONE ×2 (19:39→20:30)
[2017-10-29] MEDS ORDERED: Propofol 200 MG/20 ML SDV ONE (19:39)
[2017-10-29] MEDS ORDERED: Midazolam 1 MG/ML 2 ML SDV ONE (19:39)
[2017-10-29] MEDS ORDERED: Dexamethasone 4 MG/ML 5 ML MDV ONE (19:42)
[2017-10-29] MEDS ORDERED: Ondansetron 4 MG/2 ML SDV ONE (19:42)
[2017-10-29] MEDS ORDERED: ceFAZolin 1 GM Vial ONE (19:56)
[2017-10-29] MEDS ORDERED: Lidocaine 1% with EPINEPHrine 1:100,000 20 ML MDV ONE (19:59)
[2017-10-29] MEDS ORDERED: Acetaminophen/oxyCODONE 325-5 MG Tab PO PRN (20:54)
--- NOTE | 2017-10-29 20:54 | PCM.OPNOTE ---
- General Post-Op/Procedure Note Date of Surgery/Procedure: 10/29/17 Operative Procedure(s): Incision and drainage of abdominal abscess Findings: 5 cm X 1.5 cm x 4 cm abscess cavity along previous scar Pre Op Diagnosis: abdominal abscess Post-Op Diagnosis: same Anesthesia Technique: General LMA Primary Surgeon: Shruthi Lazar EBL in mLs: 10 Condition: Good
[2017-10-29] MEDS ORDERED: HYDROmorphone 1 MG/ML Syringe IVPUSH PRN (20:55)
[2017-10-29] MEDS ORDERED: fentaNYL 100 MCG/2 ML SDV IVPUSH PRN (20:55)
--- NOTE | 2017-10-29 22:39 | OR ---
SURGEON: JOE MONACO MD DATE OF PROCEDURE: 10/29/2017 PREOPERATIVE DIAGNOSIS: Abdominal wall abscess. POSTOPERATIVE DIAGNOSIS: Abdominal wall abscess. PROCEDURE PERFORMED: Incision and drainage of abdominal wall abscess. ANESTHESIA: General LMA. FLUIDS: See anesthesia record. ESTIMATED BLOOD LOSS: 10 mL. FINDINGS: 5 x 1.5 x 4 cm abdominal wall abscess extending from a previous scar. COMPLICATIONS: None. INDICATIONS: The patient is a 27-year-old female, who presents with cellulitis and pain along her scar. Her was 10 weeks ago. An ultrasound was performed that showed a fluid collection underneath the scar consistent with an abscess. A decision was made to admit her to the hospital and perform an incision and drainage under anesthesia given the location and size of the abscess. We discussed the procedure as well as expected perioperative course. We discussed the risks, including bleeding, further infection, or damage to surrounding structures. The patient verbalized understanding and wishes to proceed. PROCEDURE IN DETAIL: The patient was brought into the OR and placed on the OR table in supine position. A time-out was completed verifying the patient's name, age, date of , allergies, and procedure to be performed. General LMA anesthesia was induced. The abdomen was prepped and draped in the usual standard fashion. An ultrasound was used to visualize the area preoperatively and a fluid collection was noted along the midline aspect of the scar. There is an area of palpable fluctuance as well. A spinal needle was used to aspirate this area and falguni purulence was aspirated. An 11 blade was used to open up the abscess cavity. A large amount of purulence was expressed. This was sent for Gram- stain, anaerobic and aerobic cultures. The incision was then opened up to completely open the roof of the abscess cavity. Using my finger, I broke up the loculations that were present in the abscess. The abscess cavity was copiously irrigated with normal saline. The defect after the abscess was cleaned out, was 5 cm long x 1.5 cm wide x 4 cm deep. I anesthetized the area around the abscess cavity with 1% lidocaine plain. The abscess was then packed with moistened vaginal packing and a dry fluffs were placed over the top. An ABD was placed over these and secured with Medipore tape. The patient tolerated the procedure well and was taken to PACU in stable condition. LEMEASH / MODL /[id number] ALICIA
[2017-10-30] MEDS: Piperacillin/Tazobactam 3.375 GM in Sodium Chloride 0.9% 50 ML IV SCH (03:05)
[2017-10-30] MEDS: Lactated Ringers 1,000 ML IV SCH (06:55)
[2017-10-30] MEDS ORDERED: Clindamycin HCl 150 MG Cap PO SCH (07:00)
--- NOTE | 2017-10-30 07:33 | PCM48HPAN ---
Post Anesthesia Note - EVALUATION WITHIN 48HRS OF ANESTHETIC Vital Signs in Normal Range: Yes Patient Participated in Evaluation: Yes Respiratory Function Stable: Yes Airway Patent: Yes Cardiovascular Function Stable: Yes Hydration Status Stable: Yes Pain Control Satisfactory: Yes Nausea and Vomiting Control Satisfactory: Yes Mental Status Recovered: Yes
[2017-10-30 08:34] VITALS: BP 119/65
== END 2017-10-30 10:45 | disposition home or self-care (01) ==
LOC: MW.MS 16:09
PROVIDERS: ADMIT Surgery; ATTEND Surgery
DX: T81.4XXA Infection following a procedure, initial encounter (principal); L02.91 Cutaneous abscess, unspecified; L03.311 Cellulitis of abdominal wall; E66.9 Obesity, unspecified; Z68.32 Body mass index [BMI] 32.0-32.9, adult; Z86.32 Personal history of gestational diabetes; Z79.899 Other long term (current) drug therapy; Z98.890 Other specified postprocedural states
CPT/HCPCS: 10060; 36415; 82962; 84703; 85025; 85027; 87070; 87075; 87205; 96365; 96375; A9270; G0378; G0379; J1100; J1170; J2250; J2405; J2543; J3010; J3370; J7050; J7120; 00400; 76705; 76705-26; J0690; J2704

== ENCOUNTER 2020-02-18 20:53 | Emergency (ER) | payer BC ==
[2020-02-18] MEDS: Ketorolac 60 MG/2 ML SDV IM ONE (21:25)
--- NOTE | 2020-02-18 21:25 | EDM.PDOC ---
ED HPI GENERAL MEDICAL PROBLEM - General Chief Complaint: Back Pain or Injury Stated Complaint: LOWER BACK PAIN Time Seen by Provider: 02/18/20 21:20 Source of Information: Reports: Patient - History of Present Illness INITIAL COMMENTS - FREE TEXT/NARRATIVE: The patient is a 29-year-old female who presents to the ER secondary to low back pain. She states that she has had this in the past. No recent trauma, she states that for the past week and a half she has been experiencing pain in her low back which is worse when she is standing or reaching above her head, or bending over and trying to stand up. It is also worse if she stands for prolonged period of time. Walking actually makes it feel better. She has tried taking some Aleve but it does not seem to be helping her symptoms. She has had an anti-inflammatory injection in the past which helped. No weakness in the legs, no radicular symptoms, no trouble with bowels or bladder or any other acute complaints. - Related Data Allergies Allergy/AdvReac Type Severity Reaction Status Date / Time No Known Allergies Allergy Verified 02/18/20 21:26 Home Meds: Home Meds No122/Iron/Folic Acid [ Multi Tablet] 1 cap PO DAILY 03/13/17 [ History] Ferrous Sulfate [Iron] 1 tab PO DAILY 08/12/17 [History] Ibuprofen [IJD: Ibuprofen] 800 mg PO Q8H PRN #90 tablet 08/15/17 [Rx] Acetaminophen/oxyCODONE [Percocet 325-5 MG] 2 tab PO Q4H PRN #30 tablet [Rx] Clindamycin HCl [Cleocin] 450 mg PO Q6H 5 Days #19 cap 10/30/17 [Rx] Past Medical History - Past Health History Medical/Surgical History: Denies Medical/Surgical History HEENT History: Reports: Other (See Below) Other HEENT History: wears glasses/contacts Cardiovascular History: Reports: None Respiratory History: Reports: None Gastrointestinal History: Reports: Other (See Below) Other Gastrointestinal History: occasional heartburn during Genitourinary History: Reports: 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: Reports: 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 Neurological History: Reports: Other (See Below) Other Neuro History: bells palsy (2013) Psychiatric History: Reports: None Endocrine/Metabolic History: Reports: Diabetes, Gestational, Obesity/BMI 30+ Other Endocrine/Metabolic History: gestational diabetes controlled with diet Hematologic History: Reports: Blood Transfusion(s) Other Hematologic History: blood transfusion after previous Immunologic History: Reports: None Oncologic (Cancer) History: Reports: None Dermatologic History: Reports: None - Infectious Disease History Infectious Disease History: Reports: None - Past Surgical History Head Surgeries/Procedures: Reports: None Female Surgical History: Reports: Section Social & Family History - Family History Family Medical History: Noncontributory Endocrine/Metabolic: Reports: Diabetes, type II - Caffeine Use Caffeine Use: Reports: Energy Drinks Caffeine Use Comment: 2drinks/week ED ROS GENERAL - Review of Systems Review Of Systems: See Below (Positive for low back pain, negative for bowel or bladder dysfunction, negative for leg weakness, negative for trauma, all other Positives and pertinent negatives as per HPI. All other pertinent systems were reviewed and are negative) ED EXAM,LOWER BACK PAIN/INJURY - Physical Exam Exam: See Below Text/Narrative:: Constitutional: No acute distress, Non-toxic appearance. HEENT: Normocephalic, Atraumatic, EOMI Neck: Normal range of motion, No stridor, trachea midline Respiratory: No respiratory distress, No tachypnea Cardiovascular: Deferred Gastrointestinal: Deferred Genital / Urinary: Deferred Musculoskeletal: All four extremities present and atraumatic Back: FROM painful range of motion, tenderness in the bilateral lower lumbar region Integument: Warm, Dry, Color is ethnicity appropriate, No rash. Neuro: Alert, Awake, No focal deficits noted, normal gait, motor strength equal in the bilateral lower extremities at 5/5 Psych: Affect, Judgement, mood normal Course - Vital Signs Text/Narrative:: M are consistent with uncomplicated musculoskeletal low back pain. The patient was provided with education and given a Toradol 60 mg IM shot and no prescriptions. Stable for discharge. - Orders/Labs/Meds Orders: Active Orders 24 hr Category Date Time Status Ketorolac [Toradol] Med 02/18/20 21:20 Once 60 mg IM ONETIME ONE Departure - Departure Time of Disposition: 21:23 Disposition: Home, Self-Care 01 Condition: Good Clinical Impression: Back pain - Discharge Information *PRESCRIPTION DRUG MONITORING PROGRAM REVIEWED*: Not Applicable *COPY OF PRESCRIPTION DRUG MONITORING REPORT IN PATIENT CHET: Not Applicable Referrals: Susanne,Teetee A, MATERIALS HANDLING COORDINATOR [Primary Care Provider] - Additional Instructions: BACK PAIN Back pain is very common. The pain often gets better over time. The cause of back pain is usually not dangerous. Most people can learn to manage their back pain on their own. Back pain can last up to 4-6 weeks and still be considered normal. HOME CARE Watch your back pain for any changes. The following actions may help to lessen any pain you are feeling: Stay active. Start with short walks on flat ground if you can. Try to walk farther each day. Carefully exercise regularly, and as tolerated. Exercise helps your back heal faster. It also helps avoid future injury by keeping your muscles strong and flexible. Do not sit, drive, or windows desktop support one place for more than 30 minutes. Do not stay in bed for prolonged periods of time. Resting more than 1-2 days can slow down your recovery. Be careful when you bend or lift an object. Use good form when lifting: ? Bend at your knees. ? Keep the object close to your body. ? Do not twist. Sleep on a firm mattress. Lie on your side, and bend your knees. If you lie on your back, put a pillow under your knees. Ibuprofen 800 mg and Tylenol 1000 mg may be taken together every 6 hours as needed for pain Ice often helps for the first 24 hours, after that warm heat usually works better Maintain a healthy weight. Extra weight puts stress on your back. Follow-up with a primary care provider as instructed - My Orders Last 24 Hours: My Active Orders 02/18/20 21:20 Ketorolac [Toradol] 60 mg IM ONETIME ONE - Assessment/Plan Last 24 Hours: My Active Orders 02/18/20 21:20 Ketorolac [Toradol] 60 mg IM ONETIME ONE
[2020-02-18 21:27] VITALS: BP 109/67; PULSE 76
== END 2020-02-18 21:43 | disposition home or self-care (01) ==
LOC: MW.ED 20:53
DX: M54.5 Low back pain (principal); E66.9 Obesity, unspecified; Z68.27 Body mass index [BMI] 27.0-27.9, adult
CPT/HCPCS: 96372; 99283; J1885; 99282

== ENCOUNTER 2021-03-16 19:13 | Emergency (ER) | payer OTHER ==
[2021-03-16] MEDS ORDERED: Sodium Chloride 0.9% 10 ML Syringe FLUSH PRN (19:57)
[2021-03-16] MEDS ORDERED: Sodium Chloride 0.9% 2.5 ML Syringe FLUSH PRN (19:57)
[2021-03-16] MEDS ORDERED: Ketorolac 30 MG/ML SDV IVPUSH ONE (19:58)
[2021-03-16] MEDS ORDERED: Sodium Chloride 0.9% 1,000 ML IV ONE (19:59)
[2021-03-16] MEDS ORDERED: Ondansetron 4 MG/2 ML SDV IVPUSH ONE (19:59)
[2021-03-16 20:49] LABS: BLOOD UREA NITROGEN,BUN 11 mg/dL (7.0-18.0); CARBON DIOXIDE,CO2 22.4 mmol/L (21.0-32.0); CHLORIDE,CL 105 mmol/L (98-107); GLUCOSE RANDOM 126 mg/dL (74-106); LIPASE 133 U/L (73-393); POTASSIUM,K 3.7 mmol/L (3.5-5.1); SODIUM,NA 141 mmol/L (136-145)
[2021-03-16] MEDS ORDERED: HYDROmorphone 1 MG/ML Syringe IVPUSH ONE (21:03)
--- NOTE | 2021-03-16 21:13 | EDM.PDOC ---
ED HPI GENERAL MEDICAL PROBLEM - General Chief Complaint: Abdominal Pain Stated Complaint: ABDOMINAL PAIN Time Seen by Provider: 03/16/21 19:46 Source of Information: Reports: Patient History Limitations: Reports: No Limitations - History of Present Illness INITIAL COMMENTS - FREE TEXT/NARRATIVE: HISTORY AND PHYSICAL: History of present illness: The patient is a 30-year-old female who presents to the emergency room with complaints of right lower quadrant pain that has been intermittent for the last several months now. The patient states that she has been worked up by her [employer] and diagnosed with PCOS for which she was started on Metformin at 1000 mg twice daily. She also states that she had been diagnosed with some kind of ovarian cyst. A liver lesion and fatty liver. The patient states that she has been nauseated but no vomiting. She is eating and drinking okay. She stated that she started her period a few days ago she has 1 about every 3 months. Her first day was a scant amount of bleeding and the last 2 days have been even less than that. Patient states that she is attempted a bath for her pain control and she took Aleve at 930 this a.m. but states "it is just not working". Patient denies any fever, chills, headache, change in vision, syncope or near syncope. Denies any chest pain, back pain, shortness of breath or cough. Denies any abdominal pain, nausea, vomiting, diarrhea, constipation or dysuria. Has not noted any blood in urine or stool. Patient has been eating and drinking appropriately. In the emergency room the patient is hemodynamically stable with a blood pressure of 143/86 and a pulse of 85. She is afebrile with a temperature of 97. Review of systems: As per history of present illness and below otherwise all systems reviewed and negative. Past medical history: As per history of present illness and as reviewed below otherwise noncontributory. Surgical history: As per history of present illness and as reviewed below otherwise noncontributory. Social history: See social history for further information Family history: As per history of present illness and as reviewed below otherwise noncontributory. Physical exam: General: Well developed and well nourished. Alert and orientated x 3. Nontoxic in appearance and in no acute distress. Vital signs are stable and have been reviewed by me. Nursing notes were reviewed. HEENT: Atraumatic, normocephalic, pupils equal and reactive bilaterally, negative for conjunctival pallor or scleral icterus, mucous membranes moist, TMs normal bilaterally, throat clear, neck supple, nontender, trachea midline. No drooling or trismus noted. No meningeal signs. No hot potato voice noted. Lungs: Clear to auscultation bilaterally. No wheezes, rales, or rhonchi. Chest nontender. Normal work of breathing, no accessory muscles used. Heart: S1S2, regular rate and rhythm without overt murmur, gallops, or rubs. No JVD. No peripheral edema Abdomen: Soft, obese, tender RLQ and mild tenderness in RUQ. Negative Crain's sign. Normoactive bowel sounds. Negative for masses or costovertebral tenderness. Skin: Intact, warm, dry. No lesions or rashes noted. Hematologic: No petechiae or purpra. Mucosa appropriate color and normal nail bed color and refill. Extremities: Atraumatic, moves all extremities per self without difficulty or deficits, negative for cords or calf pain. Neurovascular unremarkable. Neuro: Awake, alert, oriented. Cranial nerves II through XII unremarkable. Cerebellum unremarkable. Motor and sensory unremarkable throughout. Exam nonfocal. Psychiatric: Mood and affect are appropriate. Normal thought process. Answering questions appropriately. Notes: *This patient was seen and evaluated during the 2019 SARS-CoV-2 novel coronavirus pandemic period. Community viral transmission is ongoing at time of this encounter and the emergency department is operating under pandemic response procedures. After discussion and lamination the patient is agreeable to blood work, urinalysis, hCG, CT of abdomen, IV fluids, Toradol, Zofran. Post Toradol injection the patient states her pain was getting better but now is coming back. I will treat her with Dilaudid 1 mg. Abd/pelvis CT IMPRESSION: Mild to moderate right obstructive uropathy due to a 6 mm distal right ureteral calculus near the right UVJ. A punctate nonobstructive right renal calcification. No evidence of appendicitis, diverticulitis or bowel obstruction. Mild bladder wall thickening versus underdistention. Correlate with urinalysis to exclude a UTI. Hepatomegaly and hepatic steatosis. The patient CBC is unremarkable. The CMP: Glucose 126, calcium 7.9, otherwise unremarkable. Patient's urine is nitrate positive, leukocyte esterase trace, bacteria +1. I will treat her with Flomax and Thor for the renal calculi. I will treat her UTI with nitrofurantoin 100 mg twice daily for 10 days. The patient was educated on straining her urine and bring it in for evaluation. The patient's abdominal pain has totally resolved. The patient is agreeable with the discharge plan. I have talked with the patient about today's findings, in addition to providing specific details for plan of care. Reassessment at the time of disposition demonstrates that the patient is in no acute distress. The patient is stable for discharge, counseling was provided and we discussed in great detail signs and symptoms that would prompt them to return to the Emergency Department. Medication, follow up and supportive care measures were reviewed and discussed. Voices understanding and is agreeable to plan of care. Denies any further questions or concerns at this time. Diagnostics: CBC, CMP, lipase, urinalysis, hCG, CT abdomen pelvis [employer]: Toradol, Zofran, Dilaudid, IV fluids Prescription: Flomax 0.4 mg daily for 10 days, nitrofurantoin 100 mg twice daily for 10 days, Thor every 4 to 6 hours as needed for pain #10 Impression: Cystitis, renal calculi Plan: 1. You were evaluated today on an emergent basis. Your right lower quad pain was evaluated with blood work which was essentially negative and a urinalysis which showed a urinary tract infection and your CT of abdomen pelvis showed a millimeter kidney stone. Your pain has been controlled with 1 mg of Dilaudid. You were given Flomax and nitrofurantoin ER 100 mg in the emergency room. 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 I have given you a prescription for the Insta med for Thor for pain control. Strain all your urine to see if you have passed your kidney stone and bring it in to have analyzed. Drink adequate amounts of fluids. You will need to follow-up with your primary care provider. 2. You can alternate Tylenol and ibuprofen as needed for pain and fever management. 3. We encourage you to follow up with your primary care provider and/or recommended specialist in the next few days for re-evaluation and further care/management. 4. If your symptoms should worsen, new symptoms develop or any of the signs and symptoms we discussed should arise please return to the emergency room or call 911 (if needed). Definitive disposition and diagnosis as appropriate pending reevaluation and review of above. Right Lower Abdomen Pain Score (Numeric/FACES): 10 - Related Data Allergies Allergy/AdvReac Type Severity Reaction Status Date / Time No Known Allergies Allergy Verified 03/16/21 19:36 Home Meds: Home Meds Tamsulosin HCl [Flomax] 0.4 mg PO DAILY 10 Days #10 cap.er.24h 03/16/21 [Rx] nitrofurantoin macrocrystaL [Nitrofurantoin] 100 mg PO BID 10 Days #19 capsule 03/16/21 [Rx] Past Medical History - Past Health History Medical/Surgical History: Denies Medical/Surgical History HEENT History: Reports: Other (See Below) Other HEENT History: wears glasses/contacts Cardiovascular History: Reports: None Respiratory History: Reports: None Gastrointestinal History: Reports: Other (See Below) Other Gastrointestinal History: occasional heartburn during Genitourinary History: Reports: None [employer] History: Reports: Musculoskeletal History: Reports: None Neurological History: Reports: Other (See Below) Other Neuro History: bells palsy (2013) Psychiatric History: Reports: None Endocrine/Metabolic History: Reports: Diabetes, Gestational, Obesity/BMI 30+ Other Endocrine/Metabolic History: gestational diabetes controlled with diet Hematologic History: Reports: Blood Transfusion(s) Other Hematologic History: blood transfusion after previous Immunologic History: Reports: None Oncologic (Cancer) History: Reports: None Dermatologic History: Reports: None - Infectious Disease History Infectious Disease History: Reports: None - Past Surgical History Head Surgeries/Procedures: Reports: None HEENT Surgical History: Reports: None Cardiovascular Surgical History: Reports: None Respiratory Surgical History: Reports: None GI Surgical History: Reports: None Female Surgical History: Reports: Section Other Female Surgeries/Procedures: x 1 Neurological Surgical History: Reports: None Musculoskeletal Surgical History: Reports: None Dermatological Surgical History: Reports: None Social & Family History - Family History Family Medical History: No Pertinent Family History Endocrine/Metabolic: Reports: Diabetes, type II - Tobacco Use Tobacco Use Status *Q: Never Tobacco User - Caffeine Use Caffeine Use: Reports: Energy Drinks Caffeine Use Comment: 2drinks/week - Recreational Drug Use Recreational Drug Use: No ED ROS GENERAL - Review of Systems Review Of Systems: Comprehensive ROS is negative, except as noted in HPI. ED EXAM, RENAL/ - Physical Exam Exam: See Below (See dictation) Course - Vital Signs Last Recorded V/S: Last Vital Signs Temp 97.0 F 03/16/21 19:37 Pulse 78 03/16/21 22:37 Resp 17 03/16/21 22:37 BP 132/75 03/16/21 22:37 Pulse Ox 98 03/16/21 22:37 - Orders/Labs/Meds Orders: Active Orders 24 hr Category Date Time Status Saline Lock Insert [OM.PC] Stat Oth 03/16/21 19:56 Ordered Labs: Laboratory Tests 03/16/21 03/16/21 03/16/21 Range/Units 19:42 19:42 20:26 WBC 9.73 (4.0-11.0) K/uL RBC 4.78 (4.30-5.90) M/uL Hgb 13.6 (12.0-16.0) g/dL Hct 40.5 (36.0-46.0) % MCV 84.7 (80.0-98.0) fL MCH 28.5 (27.0-32.0) pg MCHC 33.6 (31.0-37.0) g/dL RDW Std Deviation 40.6 (28.0-62.0) fl RDW Coeff of Su 13 (11.0-15.0) % Plt Count 229 (150-400) K/uL MPV 9.00 (7.40-12.00) fL Neut % (Auto) 82.8 H (48.0-80.0) % Lymph % (Auto) 12.7 L (16.0-40.0) % [place] % (Auto) 3.6 (0.0-15.0) % Eos % (Auto) 0.8 (0.0-7.0) % Baso % (Auto) 0.1 (0.0-1.5) % Neut # (Auto) 8.1 H (1.4-5.7) K/uL Lymph # (Auto) 1.2 (0.6-2.4) K/uL [place] # (Auto) 0.4 (0.0-0.8) K/uL Eos # (Auto) 0.1 (0.0-0.7) K/uL Baso # (Auto) 0.0 (0.0-0.1) K/uL Nucleated RBC % 0.0 /100WBC Nucleated RBCs # 0 K/uL Sodium (136-145) mmol/L Potassium (3.5-5.1) mmol/L Chloride (98-107) mmol/L Carbon Dioxide (21.0-32.0) mmol/L BUN (7.0-18.0) mg/dL Creatinine (0.6-1.0) mg/dL Est Cr Clr Drug Dosing mL/min Estimated GFR (MDRD) ml/min Glucose (74-106) mg/dL Calcium (8.5-10.1) mg/dL Total Bilirubin (0.2-1.0) mg/dL AST (15-37) IU/L ALT (14-63) IU/L Alkaline Phosphatase (46-116) U/L Total Protein (6.4-8.2) g/dL Albumin (3.4-5.0) g/dL Globulin (2.6-4.0) g/dL Albumin/Globulin Ratio (0.9-1.6) Lipase (73-393) U/L Urine Color ORANGE Urine Appearance CLOUDY Urine pH 6.5 (5.0-8.0) Ur Specific [place] >= 1.030 (1.001-1.035) Urine Protein 100 H (NEGATIVE) mg/dL Urine Glucose (UA) NEGATIVE (NEGATIVE) mg/dL Urine Ketones TRACE H (NEGATIVE) mg/dL Urine Occult Blood LARGE H (NEGATIVE) Urine Nitrite POSITIVE H (NEGATIVE) Urine Bilirubin SMALL H (NEGATIVE) Urine Ictotest NEGATIVE Urine Urobilinogen 1.0 (<2.0) EU/dL Ur Leukocyte Esterase TRACE H (NEGATIVE) Urine RBC 95-100 (0-2/HPF) Urine WBC 35-40 (0-5/HPF) Ur Epithelial Cells MANY (NONE-FEW) Calcium Oxalate Crystal FEW (NEGATIVE) Urine Bacteria 1+ H (NEGATIVE) Urinalysis Comment Urine HCG, Qual NEGATIVE (NEGATIVE) 03/16/21 Range/Units 20:26 WBC (4.0-11.0) K/uL RBC (4.30-5.90) M/uL Hgb (12.0-16.0) g/dL Hct (36.0-46.0) % MCV (80.0-98.0) fL MCH (27.0-32.0) pg MCHC (31.0-37.0) g/dL RDW Std Deviation (28.0-62.0) fl RDW Coeff of Su (11.0-15.0) % Plt Count (150-400) K/uL MPV (7.40-12.00) fL Neut % (Auto) (48.0-80.0) % Lymph % (Auto) (16.0-40.0) % [place] % (Auto) (0.0-15.0) % Eos % (Auto) (0.0-7.0) % Baso % (Auto) (0.0-1.5) % Neut # (Auto) (1.4-5.7) K/uL Lymph # (Auto) (0.6-2.4) K/uL [place] # (Auto) (0.0-0.8) K/uL Eos # (Auto) (0.0-0.7) K/uL Baso # (Auto) (0.0-0.1) K/uL Nucleated RBC % /100WBC Nucleated RBCs # K/uL Sodium 141 (136-145) mmol/L Potassium 3.7 (3.5-5.1) mmol/L Chloride 105 (98-107) mmol/L Carbon Dioxide 22.4 (21.0-32.0) mmol/L BUN 11 (7.0-18.0) mg/dL Creatinine 0.7 (0.6-1.0) mg/dL Est Cr Clr Drug Dosing 83.64 mL/min Estimated GFR (MDRD) > 60.0 ml/min Glucose 126 H (74-106) mg/dL Calcium 7.9 L (8.5-10.1) mg/dL Total Bilirubin 0.2 (0.2-1.0) mg/dL AST 78 H (15-37) IU/L ALT 111 H (14-63) IU/L Alkaline Phosphatase 85 (46-116) U/L Total Protein 7.3 (6.4-8.2) g/dL Albumin 3.5 (3.4-5.0) g/dL Globulin 3.8 (2.6-4.0) g/dL Albumin/Globulin Ratio 0.9 (0.9-1.6) Lipase 133 (73-393) U/L Urine Color Urine Appearance Urine pH (5.0-8.0) Ur Specific [place] (1.001-1.035) Urine Protein (NEGATIVE) mg/dL Urine Glucose (UA) (NEGATIVE) mg/dL Urine Ketones (NEGATIVE) mg/dL Urine Occult Blood (NEGATIVE) Urine Nitrite (NEGATIVE) Urine Bilirubin (NEGATIVE) Urine Ictotest Urine Urobilinogen (<2.0) EU/dL Ur Leukocyte Esterase (NEGATIVE) Urine RBC (0-2/HPF) Urine WBC (0-5/HPF) Ur Epithelial Cells (NONE-FEW) Calcium Oxalate Crystal (NEGATIVE) Urine Bacteria (NEGATIVE) Urinalysis Comment Urine HCG, Qual (NEGATIVE) Meds: Medications Discontinued Medications Generic Name Dose Route Start Last Admin Trade Name Freq PRN Reason Stop Dose Admin Hydromorphone HCl 1 mg 03/16/21 21:03 03/16/21 21:27 Hydromorphone 1 Mg/Ml Syringe IVPUSH 03/16/21 21:04 1 mg ONETIME ONE Administration Sodium Chloride 1,000 mls @ 999 mls/hr 03/16/21 19:59 03/16/21 20:37 Normal Saline IV 03/16/21 20:59 999 mls/hr .BOLUS ONE Administration Iopamidol 100 ml 03/16/21 21:28 03/16/21 21:28 Iopamidol 755 Mg/Ml 500 Ml Multipack Bottle IVPUSH 03/16/21 21:29 100 ml ONETIME STA Administration Ketorolac Tromethamine 30 mg 03/16/21 19:58 03/16/21 20:33 Ketorolac 30 Mg/Ml Sdv IVPUSH 03/16/21 19:59 30 mg ONETIME ONE Administration Nitrofurantoin Macrocrystals 100 mg 03/16/21 22:09 03/16/21 22:25 Nitrofurantoin Monohydrate/Macrocrystalline 100 Mg Cap PO 03/16/21 22:10 100 mg ONETIME ONE Administration Ondansetron HCl 4 mg 03/16/21 19:59 03/16/21 20:35 Ondansetron 4 Mg/2 Ml Sdv IVPUSH 03/16/21 20:00 4 mg ONETIME ONE Administration Sodium Chloride 10 ml 03/16/21 19:57 03/16/21 20:36 Sodium Chloride 0.9% 10 Ml Syringe FLUSH 10 ml ASDIRECTED PRN Administration Keep Vein Open Sodium Chloride 2.5 ml 03/16/21 19:57 03/16/21 20:35 Sodium Chloride 0.9% 2.5 Ml Syringe FLUSH 2.5 ml ASDIRECTED PRN Administration Keep Vein Open Tamsulosin HCl 0.4 mg 03/16/21 22:09 03/16/21 22:25 Tamsulosin 0.4 Mg Cap.Er PO 03/16/21 22:10 0.4 mg ONETIME ONE Administration Departure - Departure Time of Disposition: 22:22 Disposition: Home, Self-Care 01 Condition: Good Clinical Impression: Cystitis, Kidney calculi - Discharge Information *PRESCRIPTION DRUG MONITORING PROGRAM REVIEWED*: Not Applicable *COPY OF PRESCRIPTION DRUG MONITORING REPORT IN PATIENT CHET: Not Applicable Prescriptions: Tamsulosin HCl [Flomax] 0.4 mg PO DAILY 10 Days #10 cap.er.24h nitrofurantoin macrocrystaL [Nitrofurantoin] 100 mg PO BID 10 Days #19 capsule Instructions: Kidney Stones, [id number], Urinary Tract Infection, Adult, [id number] Referrals: Crissy Khan NP [Primary Care Provider] - Forms: ED Department Discharge Additional Instructions: The following information is given to patients seen in the emergency department who are being discharged to home. This information is to outline your options for follow-up care. We provide all patients seen in our emergency department with a follow-up referral. The need for follow-up, as well as the timing and circumstances, are variable depending upon the specifics of your emergency department visit. If you don't have a primary care physician on staff, we will provide you with a referral. We always advise you to contact your personal physician following an emergency department visit to inform them of the circumstance of the visit and for follow-up with them and/or the need for any referrals to a consulting specialist. The emergency department will also refer you to a specialist when appropriate. This referral assures that you have the opportunity for follow-up care with a specialist. All of these measure are taken in an effort to provide you with optimal care, which includes your follow-up. Under all circumstances we always encourage you to contact your private physician who remains a resource for coordinating your care. When calling for follow-up care, please make the office aware that this follow-up is from your recent emergency room visit. If for any reason you are refused follow-up, please contact the [facility] Emergency Department at and asked to speak to the emergency department charge nurse. [facility] [address], [place] [address] [facility] [address] [place] [address] Plan: 1. You were evaluated today on an emergent basis. Your right lower quad pain was evaluated with blood work which was essentially negative and a urinalysis which showed a urinary tract infection and your CT of abdomen pelvis showed a millimeter kidney stone. Your pain has been controlled with 1 mg of Dilaudid. You were given Flomax and nitrofurantoin ER 100 mg in the emergency room. 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 I have given you a prescription for the Insta med for Thor for pain control. Strain all your urine to see if you have passed your kidney stone and bring it in to have analyzed. Drink adequate amounts of fluids. You will need to follow-up with your primary care provider. 2. You can alternate Tylenol and ibuprofen as needed for pain and fever management. 3. We encourage you to follow up with your primary care provider and/or recomme nded specialist in the next few days for re-evaluation and further care/management. 4. If your symptoms should worsen, new symptoms develop or any of the signs and symptoms we discussed should arise please return to the emergency room or call 911 (if needed). Sepsis Event Note (ED) - Evaluation Sepsis Screening Result: No Definite Risk - Focused Exam Vital Signs: Vital Signs Pulse Resp BP Pulse Ox 03/16/21 22:37 78 17 132/75 98 - My Orders Last 24 Hours: My Active Orders 03/16/21 19:56 Saline Lock Insert [OM.PC] Stat - Assessment/Plan Last 24 Hours: My Active Orders 03/16/21 19:56 Saline Lock Insert [OM.PC] Stat
[2021-03-16] MEDS ORDERED: Iopamidol 755 MG/ML 500 ML Multipack Bottle IVPUSH STA (21:28)
--- NOTE | 2021-03-16 21:57 | CT ---
INDICATION: Right abdominal pain TECHNIQUE: CT abdomen and pelvis acquired with IV contrast. 100 mL of Isovue 370 administered. COMPARISON: None available FINDINGS: Lower chest: Unremarkable. Liver: Hepatomegaly measuring 21.2 cm craniocaudally. Hepatic steatosis. Spleen: Unremarkable. Pancreas: Unremarkable. Gallbladder and bile ducts: Unremarkable. Adrenal glands: Unremarkable. Kidneys: [id number] right hydroureteronephrosis with a mildly delayed right nephrogram and an irregular calculus in the distal right ureter at the UVJ, versus 2 abutting calcifications, measuring up to 6 mm in total dimension. A right pelvic calcification on image 141 is posterior to the distal right ureter, consistent with a phlebolith. A punctate nonobstructive right renal lower pole calcification. GI tract: No bowel obstruction. Normal appendix. No significant pericolonic changes. Few small sigmoid diverticula noted without diverticulitis. Vascular structures: Unremarkable. Lymph nodes: Unremarkable. Miscellaneous: No free air or significant free fluid. A small fat containing umbilical hernia. Pelvic Organs: Mild bladder wall thickening could be partially related to under distension. No gross uterine abnormality seen. Small ovarian follicles. Bones: A transitional lumbosacral anatomy. IMPRESSION: Mild to moderate right obstructive uropathy due to a 6 mm distal right ureteral calculus near the right UVJ. A punctate nonobstructive right renal calcification. No evidence of appendicitis, diverticulitis or bowel obstruction. Mild bladder wall thickening versus underdistention. Correlate with urinalysis to exclude a UTI. Hepatomegaly and hepatic steatosis. Please note that all CT scans at this facility use dose modulation, iterative reconstruction, and/or weight-based dosing when appropriate to reduce radiation dose to as low as reasonably achievable. Dictated by Nas Lerner MD @ 03/16/2021 9:55:[address] Nas Lerner @ Mar 16 2021 9:55PM
[2021-03-16] MEDS ORDERED: Tamsulosin 0.4 MG Cap.ER PO ONE (22:09)
[2021-03-16] MEDS ORDERED: Nitrofurantoin Monohydrate/Macrocrystalline 100 MG Cap PO ONE (22:09)
[2021-03-16 22:38] VITALS: BP 132/75; PULSE 78
== END 2021-03-16 22:42 | disposition home or self-care (01) ==
LOC: MW.ED 19:13
DX: N13.2 Hydronephrosis with renal and ureteral calculous obstruction (principal); N30.90 Cystitis, unspecified without hematuria
CPT/HCPCS: 36415; 74177; 80053; 81001; 81025; 83690; 85025; 96374; 96375; 99284; A9270; J1170; J1885; J2405; J7030; Q9967; 99283

== ENCOUNTER 2021-03-21 05:00 | Emergency (ER) | payer OTHER ==
[2021-03-21] MEDS ORDERED: fentaNYL 50 MCG/ML SDV IVPUSH ONE (05:03)
[2021-03-21] MEDS ORDERED: Sodium Chloride 0.9% 2.5 ML Syringe FLUSH PRN (05:03)
[2021-03-21] MEDS ORDERED: Sodium Chloride 0.9% 10 ML Syringe FLUSH PRN (05:03)
[2021-03-21] MEDS ORDERED: Ondansetron 4 MG/2 ML SDV IVPUSH ONE (05:03)
[2021-03-21] MEDS ORDERED: Sodium Chloride 0.9% 1,000 ML IV SCH (05:15)
[2021-03-21] MEDS ORDERED: HYDROmorphone 1 MG/ML Syringe IVPUSH ONE ×2 (05:32→06:05)
--- NOTE | 2021-03-21 05:40 | EDM.PDOC ---
ED HPI GENERAL MEDICAL PROBLEM - General Chief Complaint: Abdominal Pain Stated Complaint: VOMITING Time Seen by Provider: 03/21/21 05:02 - History of Present Illness INITIAL COMMENTS - FREE TEXT/NARRATIVE: History of present illness: This patient arrived at the registration desk 2 hours early for procedure that she supposed to have this morning. She is scheduled to have a retrograde removal of a ureteral stone at the [facility]. It is on the right side. She was diagnosed here by CT scan and ultrasound. She said the pain got so bad she cannot tolerate it. She is also been vomiting for 24 hours. She has not had anything to eat and kept anything down for 24 hours. [] Review of systems: As per history of present illness and below otherwise all systems reviewed and negative. Past medical history: As per history of present illness and as reviewed below otherwise noncontributory. Surgical history: As per history of present illness and as reviewed below otherwise noncontributory. Social history: No reported history of drug or alcohol abuse. Family history: As per history of present illness and as reviewed below otherwise noncontributory. Physical exam: Constitutional - well developed, well-nourished and in moderate acute distress HEENT - normocephalic, no evidence of trauma - external nose and mouth normal - no mass in neck and no JVD - mucosae moist EYES - full EOM, PERRL, no icterus - no evidence of inflammation, injection, or drainage Respiratory - no respiratory distress, equal bilateral expansion, lungs clear to auscultation and no abnormal lung sounds Cardiovascular - Regular Rhythm with S1 and S2 appreciated and no murmur, gallop or rub. GI - abdomen soft without distension or organomegaly - normal bowel sounds - no guard or rebound Musculoskeletal no gross deformity of long bones or joints - no tenderness, swelling or edema Neurologic - Alert and oriented times four - CN II-XII grossly intact - motor sensory and coordination symmetrically normal Psychiatric - appropriate mood and affect with normal thought content Hematologic - No petechiae or purpura - mucosa appropriate color and sclera not pale - normal nail bed color and refill Integument - no rash or evidence of trauma - normal turgor Diagnostics: [] Therapeutics: [] Impression: [] Plan: [] Definitive disposition and diagnosis as appropriate pending reevaluation and review of above. Right Flank Pain Score (Numeric/FACES): 10 - Related Data Allergies Allergy/AdvReac Type Severity Reaction Status Date / Time No Known Allergies Allergy Verified 03/21/21 05:05 Home Meds: Home Meds Tamsulosin HCl [Flomax] 0.4 mg PO DAILY 10 Days #10 cap.er.24h 03/16/21 [Rx] nitrofurantoin macrocrystaL [Nitrofurantoin] 100 mg PO BID 10 Days #19 capsule 03/16/21 [Rx] Past Medical History - Past Health History Medical/Surgical History: Denies Medical/Surgical History HEENT History: Reports: Other (See Below) Other HEENT History: wears glasses/contacts Cardiovascular History: Reports: None Respiratory History: Reports: None Gastrointestinal History: Reports: Other (See Below) Other Gastrointestinal History: occasional heartburn during Genitourinary History: Reports: None 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: Musculoskeletal History: Reports: None Neurological History: Reports: Other (See Below) Other Neuro History: bells palsy (2013) Psychiatric History: Reports: None Endocrine/Metabolic History: Reports: Diabetes, Gestational, Obesity/BMI 30+ Other Endocrine/Metabolic History: gestational diabetes controlled with diet Hematologic History: Reports: Blood Transfusion(s) Other Hematologic History: blood transfusion after previous Immunologic History: Reports: None Oncologic (Cancer) History: Reports: None Dermatologic History: Reports: None - Infectious Disease History Infectious Disease History: Reports: None - Past Surgical History Head Surgeries/Procedures: Reports: None HEENT Surgical History: Reports: None Cardiovascular Surgical History: Reports: None Respiratory Surgical History: Reports: None GI Surgical History: Reports: None Female Surgical History: Reports: Section Other Female Surgeries/Procedures: x 1 Neurological Surgical History: Reports: None Musculoskeletal Surgical History: Reports: None Dermatological Surgical History: Reports: None Social & Family History - Family History Family Medical History: No Pertinent Family History Endocrine/Metabolic: Reports: Diabetes, type II - Tobacco Use Tobacco Use Status *Q: Never Tobacco User Second Hand Smoke Exposure: No - Caffeine Use Caffeine Use: Reports: None Caffeine Use Comment: 2drinks/week - Recreational Drug Use Recreational Drug Use: No ED ROS GENERAL - Review of Systems Review Of Systems: Comprehensive ROS is negative, except as noted in HPI. ED EXAM, GENERAL - Physical Exam Exam: See Below Free Text/Narrative:: My physical exam is in the HPI Course - Vital Signs Text/Narrative:: Initial medications helped with the vomiting and helped very transiently with the pain. See additional orders. Plan is to transfer the patient to the operating room for her procedure as scheduled. Last Recorded V/S: Last Vital Signs Temp 37.1 C 03/21/21 05:06 Pulse 111 H 03/21/21 05:06 Resp 20 03/21/21 05:06 BP 139/61 03/21/21 05:06 Pulse Ox 96 03/21/21 05:06 - Orders/Labs/Meds Orders: Active Orders 24 hr Category Date Time Status CORONAVIRUS COVID-19 [facility] [MOLEC] Stat Lab 03/21/21 05:53 Ordered HCG QUALITATIVE,SERUM [CHEM] Stat Lab 03/21/21 05:13 Received Sodium Chloride 0.9% [Normal Saline] 1,000 ml Med 03/21/21 05:15 Active IV ASDIRECTED Sodium Chloride 0.9% [Saline Flush] Med 03/21/21 05:03 Active 10 ml FLUSH ASDIRECTED PRN Sodium Chloride 0.9% [Saline Flush] Med 03/21/21 05:03 Active 2.5 ml FLUSH ASDIRECTED PRN Saline Lock Insert [OM.PC] Stat Oth 03/21/21 05:03 Ordered Medication Orders Sodium Chloride (Normal Saline) 1,000 mls @ 150 mls/hr IV ASDIRECTED KAYLA Last Admin: 03/21/21 05:17 Dose: 150 mls/hr Documented by: XAVIERIC Sodium Chloride (Sodium Chloride 0.9% 10 Ml Syringe) 10 ml FLUSH ASDIRECTED PRN PRN Reason: Keep Vein Open Last Admin: 03/21/21 05:17 Dose: 10 ml Documented by: DELMER Sodium Chloride (Sodium Chloride 0.9% 2.5 Ml Syringe) 2.5 ml FLUSH ASDIRECTED PRN PRN Reason: Keep Vein Open Last Admin: 03/21/21 05:17 Dose: 2.5 ml Documented by: DELMER Labs: Laboratory Tests 03/21/21 03/21/21 Range/Units 05:13 05:13 WBC 8.50 (4.0-11.0) K/uL RBC 4.91 (4.30-5.90) M/uL Hgb 13.7 (12.0-16.0) g/dL Hct 41.3 (36.0-46.0) % MCV 84.1 (80.0-98.0) fL MCH 27.9 (27.0-32.0) pg MCHC 33.2 (31.0-37.0) g/dL RDW Std Deviation 38.7 (28.0-62.0) fl RDW Coeff of Su 13 (11.0-15.0) % Plt Count 278 (150-400) K/uL MPV 8.80 (7.40-12.00) fL Neut % (Auto) 58.8 (48.0-80.0) % Lymph % (Auto) 32.4 (16.0-40.0) % [place] % (Auto) 7.1 (0.0-15.0) % Eos % (Auto) 1.5 (0.0-7.0) % Baso % (Auto) 0.2 (0.0-1.5) % Neut # (Auto) 5.0 (1.4-5.7) K/uL Lymph # (Auto) 2.8 H (0.6-2.4) K/uL [place] # (Auto) 0.6 (0.0-0.8) K/uL Eos # (Auto) 0.1 (0.0-0.7) K/uL Baso # (Auto) 0.0 (0.0-0.1) K/uL Nucleated RBC % 0.0 /100WBC Nucleated RBCs # 0 K/uL Sodium 142 (136-145) mmol/L Potassium 3.2 L (3.5-5.1) mmol/L Chloride 103 (98-107) mmol/L Carbon Dioxide 23.0 (21.0-32.0) mmol/L BUN 11 (7.0-18.0) mg/dL Creatinine 0.8 (0.6-1.0) mg/dL Est Cr Clr Drug Dosing 73.19 mL/min Estimated GFR (MDRD) > 60.0 ml/min Glucose 129 H (74-106) mg/dL Calcium 7.9 L (8.5-10.1) mg/dL Meds: Medications Generic Name Dose Route Start Last Admin Trade Name Freq PRN Reason Stop Dose Admin Sodium Chloride 1,000 mls @ 150 mls/hr 03/21/21 05:15 03/21/21 05:17 Normal Saline IV 150 mls/hr ASDIRECTED KAYLA Administration Sodium Chloride 10 ml 03/21/21 05:03 03/21/21 05:17 Sodium Chloride 0.9% 10 Ml Syringe FLUSH 10 ml ASDIRECTED PRN Administration Keep Vein Open Sodium Chloride 2.5 ml 03/21/21 05:03 03/21/21 05:17 Sodium Chloride 0.9% 2.5 Ml Syringe FLUSH 2.5 ml ASDIRECTED PRN Administration Keep Vein Open Discontinued Medications Generic Name Dose Route Start Last Admin Trade Name Freq PRN Reason Stop Dose Admin Fentanyl 50 mcg 03/21/21 05:03 03/21/21 05:17 Fentanyl 50 Mcg/Ml Sdv IVPUSH 03/21/21 05:04 50 mcg ONETIME ONE Administration Hydromorphone HCl 1 mg 03/21/21 05:32 03/21/21 05:36 Hydromorphone 1 Mg/Ml Syringe IVPUSH 03/21/21 05:33 1 mg ONETIME ONE Administration Ondansetron HCl 4 mg 03/21/21 05:03 03/21/21 05:17 Ondansetron 4 Mg/2 Ml Sdv IVPUSH 03/21/21 05:04 4 mg ONETIME ONE Administration Departure - Departure Time of Disposition: 06:35 Disposition: DC/Tfer to Other 70 Condition: Good Clinical Impression: Ureteric colic, Ureteral stone - Discharge Information Referrals: PCP,None [Primary Care Provider] - Forms: ED Department Discharge Additional Instructions: Patient to be taken to outpatient surgery department where she was scheduled to arrive this morning for procedure. Sepsis Event Note (ED) - Evaluation Sepsis Screening Result: No Definite Risk - Focused Exam Vital Signs: Vital Signs Temp Pulse Resp BP Pulse Ox 03/21/21 05:06 37.1 C 111 H 20 139/61 96 - My Orders Last 24 Hours: My Active Orders 03/21/21 05:03 Sodium Chloride 0.9% [Saline Flush] 10 ml FLUSH ASDIRECTED PRN Sodium Chloride 0.9% [Saline Flush] 2.5 ml FLUSH ASDIRECTED PRN Saline Lock Insert [OM.PC] Stat 03/21/21 05:13 HCG QUALITATIVE,SERUM [CHEM] Stat 03/21/21 05:15 Sodium Chloride 0.9% [Normal Saline] 1,000 ml IV ASDIRECTED 03/21/21 05:53 CORONAVIRUS COVID-19 [facility] [MOLEC] Stat - Assessment/Plan Last 24 Hours: My Active Orders 03/21/21 05:03 Sodium Chloride 0.9% [Saline Flush] 10 ml FLUSH ASDIRECTED PRN Sodium Chloride 0.9% [Saline Flush] 2.5 ml FLUSH ASDIRECTED PRN Saline Lock Insert [OM.PC] Stat 03/21/21 05:13 HCG QUALITATIVE,SERUM [CHEM] Stat 03/21/21 05:15 Sodium Chloride 0.9% [Normal Saline] 1,000 ml IV ASDIRECTED 03/21/21 05:53 CORONAVIRUS COVID-19 [facility] [MOLEC] Stat
[2021-03-21 05:52] LABS: BLOOD UREA NITROGEN,BUN 11 mg/dL (7.0-18.0); CHLORIDE,CL 103 mmol/L (98-107); GLUCOSE RANDOM 129 mg/dL (74-106); POTASSIUM,K 3.2 mmol/L (3.5-5.1); SODIUM,NA 142 mmol/L (136-145)
[2021-03-21 06:26] VITALS: BP 121/63; PULSE 87
--- NOTE | 2021-03-21 07:36 | PCM.PREANE ---
Preanesthetic Assessment - Anesthesia/Transfusion/Family Hx Anesthesia History: Prior Anesthesia Without Reaction (1st GA due to "I got wild") Family History of Anesthesia Reaction: No Transfusion History: Prior Transfusion Reaction Type of Transfusion Reactions: Reports: Other (see below) - Review of Systems General: No Symptoms Pulmonary: No Symptoms Cardiovascular: No Symptoms Gastrointestinal: No Symptoms Neurological: No Symptoms Other: Reports: None - Physical Assessment NPO Status Date: 03/21/21 NPO Status Time: 00:01 Vital Signs: Last Vital Signs Temp 98.7 F 03/21/21 05:06 Pulse 87 03/21/21 06:25 Resp 17 03/21/21 06:25 BP 121/63 03/21/21 06:25 Pulse Ox 96 03/21/21 06:25 Height: 5 ft Weight: 185 lb ASA Class: 2 Mental Status: Alert & Oriented x3 Airway Class: Mallampati = 2 Dentition: Reports: Normal Dentition ROM/Head Extension: Full Lungs: Clear to Auscultation, Normal Respiratory Effort Cardiovascular: Regular Rate, Regular Rhythm - Lab Values: Laboratory Last Values WBC 8.50 K/uL (4.0-11.0) 03/21/21 05:13 RBC 4.91 M/uL (4.30-5.90) 03/21/21 05:13 Hgb 13.7 g/dL (12.0-16.0) 03/21/21 05:13 Hct 41.3 % (36.0-46.0) 03/21/21 05:13 MCV 84.1 fL (80.0-98.0) 03/21/21 05:13 MCH 27.9 pg (27.0-32.0) 03/21/21 05:13 MCHC 33.2 g/dL (31.0-37.0) 03/21/21 05:13 RDW Std Deviation 38.7 fl (28.0-62.0) 03/21/21 05:13 RDW Coeff of Su 13 % (11.0-15.0) 03/21/21 05:13 Plt Count 278 K/uL (150-400) 03/21/21 05:13 MPV 8.80 fL (7.40-12.00) 03/21/21 05:13 Neut % (Auto) 58.8 % (48.0-80.0) 03/21/21 05:13 Lymph % (Auto) 32.4 % (16.0-40.0) 03/21/21 05:13 [place] % (Auto) 7.1 % (0.0-15.0) 03/21/21 05:13 Eos % (Auto) 1.5 % (0.0-7.0) 03/21/21 05:13 Baso % (Auto) 0.2 % (0.0-1.5) 03/21/21 05:13 Neut # (Auto) 5.0 K/uL (1.4-5.7) 03/21/21 05:13 Lymph # (Auto) 2.8 K/uL (0.6-2.4) H 03/21/21 05:13 [place] # (Auto) 0.6 K/uL (0.0-0.8) 03/21/21 05:13 Eos # (Auto) 0.1 K/uL (0.0-0.7) 03/21/21 05:13 Baso # (Auto) 0.0 K/uL (0.0-0.1) 03/21/21 05:13 Nucleated RBC % 0.0 /100WBC 03/21/21 05:13 Nucleated RBCs # 0 K/uL 03/21/21 05:13 Sodium 142 mmol/L (136-145) 03/21/21 05:13 Potassium 3.2 mmol/L (3.5-5.1) L 03/21/21 05:13 Chloride 103 mmol/L (98-107) 03/21/21 05:13 Carbon Dioxide 23.0 mmol/L (21.0-32.0) 03/21/21 05:13 BUN 11 mg/dL (7.0-18.0) 03/21/21 05:13 Creatinine 0.8 mg/dL (0.6-1.0) 03/21/21 05:13 Est Cr Clr Drug Dosing 73.19 mL/min 03/21/21 05:13 Estimated GFR (MDRD) > 60.0 ml/min 03/21/21 05:13 Glucose 129 mg/dL (74-106) H 03/21/21 05:13 Calcium 7.9 mg/dL (8.5-10.1) L 03/21/21 05:13 HCG, Qual NEGATIVE (NEG) 03/21/21 05:13 SARS-CoV-2 RNA ([facility]) NEGATIVE (NEGATIVE) 03/21/21 06:00 - Allergies Allergies/Adverse Reactions: Allergies Allergy/AdvReac Type Severity Reaction Status Date / Time No Known Allergies Allergy Verified 03/21/21 05:05 - Anesthesia Plan Pre-Op Medication Ordered: None - Acknowledgements Anesthesia Type Planned: General Anesthesia Pt an Appropriate Candidate for the Planned Anesthesia: Yes Alternatives and Risks of Anesthesia Discussed w Pt/Guardian: Yes Pt/Guardian Understands and Agrees with Anesthesia Plan: Yes Additional Comments: npo aftr 6 pm yesterday emesis last night and this am PCOS obesity bmi 36 tob none etoh none no cv problems par no questions PreAnesthesia Questionnaire - Past Health History Medical/Surgical History: Denies Medical/Surgical History HEENT History: Reports: Other (See Below) Other HEENT History: wears glasses/contacts Cardiovascular History: Reports: None Respiratory History: Reports: None Gastrointestinal History: Reports: Other (See Below) Other Gastrointestinal History: occasional heartburn during Genitourinary History: Reports: None 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: Musculoskeletal History: Reports: None Neurological History: Reports: Other (See Below) Other Neuro History: bells palsy (2013) Psychiatric History: Reports: None Endocrine/Metabolic History: Reports: Diabetes, Gestational, Obesity/BMI 30+ Other Endocrine/Metabolic History: gestational diabetes controlled with diet Hematologic History: Reports: Blood Transfusion(s) Other Hematologic History: blood transfusion after previous Immunologic History: Reports: None Oncologic (Cancer) History: Reports: None Dermatologic History: Reports: None - Infectious Disease History Infectious Disease History: Reports: None - Past Surgical History Head Surgeries/Procedures: Reports: None HEENT Surgical History: Reports: None Cardiovascular Surgical History: Reports: None Respiratory Surgical History: Reports: None GI Surgical History: Reports: None Female Surgical History: Reports: Section Other Female Surgeries/Procedures: x 1 Neurological Surgical History: Reports: None Musculoskeletal Surgical History: Reports: None Dermatological Surgical History: Reports: None - SUBSTANCE USE Tobacco Use Status *Q: Never Tobacco User Second Hand Smoke Exposure: No Recreational Drug Use History: No - HOME MEDS Home Medications: Home Meds Tamsulosin HCl [Flomax] 0.4 mg PO DAILY 10 Days #10 cap.er.24h 03/16/21 [Rx] nitrofurantoin macrocrystaL [Nitrofurantoin] 100 mg PO BID 10 Days #19 capsule 03/16/21 [Rx] - CURRENT (IN HOUSE) MEDS Current Meds: Current Medications Discontinued Medications Fentanyl (Fentanyl 50 Mcg/Ml Sdv) 50 mcg IVPUSH ONETIME ONE Stop: 03/21/21 05:04 Last Admin: 03/21/21 05:17 Dose: 50 mcg Documented by: Hydromorphone HCl (Hydromorphone 1 Mg/Ml Syringe) 1 mg IVPUSH ONETIME ONE Stop: 03/21/21 05:33 Last Admin: 03/21/21 05:36 Dose: 1 mg Documented by: Hydromorphone HCl (Hydromorphone 1 Mg/Ml Syringe) 0.5 mg IVPUSH ONETIME ONE Stop: 03/21/21 06:06 Last Admin: 03/21/21 06:22 Dose: 0.5 mg Documented by: Sodium Chloride (Normal Saline) 1,000 mls @ 150 mls/hr IV ASDIRECTED KAYLA Last Admin: 03/21/21 05:17 Dose: 150 mls/hr Documented by: Ondansetron HCl (Ondansetron 4 Mg/2 Ml Sdv) 4 mg IVPUSH ONETIME ONE Stop: 03/21/21 05:04 Last Admin: 03/21/21 05:17 Dose: 4 mg Documented by: Sodium Chloride (Sodium Chloride 0.9% 10 Ml Syringe) 10 ml FLUSH ASDIRECTED PRN PRN Reason: Keep Vein Open Last Admin: 03/21/21 05:17 Dose: 10 ml Documented by: Sodium Chloride (Sodium Chloride 0.9% 2.5 Ml Syringe) 2.5 ml FLUSH ASDIRECTED PRN PRN Reason: Keep Vein Open Last Admin: 03/21/21 05:17 Dose: 2.5 ml Documented by:
== END 2021-03-21 07:25 | disposition other institution (70) ==
LOC: MW.ED 05:00
DX: N20.1 Calculus of ureter (principal); N23 Unspecified renal colic; E66.9 Obesity, unspecified; Z68.36 Body mass index [BMI] 36.0-36.9, adult; Z20.822 Contact with and (suspected) exposure to COVID-19
CPT/HCPCS: 36415; 80048; 84703; 85025; 87635; 96374; 96375; 96376; 99284; J1170; J2405; J3010; J7030; U0002

== ENCOUNTER → 2021-03-21 | Day surgery (SDC) | payer OTHER ==
[~2021-03-21] MED LIST changes: -Citric Acid/Sodium Citrate Solution 30 ML Cup PO SCH; +Dexamethasone 4 MG/ML 5 ML MDV ONE; +Iopamidol 408 MG/ML 20 ML SDV ONE; +Ketorolac 30 MG/ML SDV ONE; +Lactated Ringers 1,000 ML IV SCH; +Midazolam 1 MG/ML 2 ML SDV ONE; +Ondansetron 4 MG/2 ML SDV ONE; -Oxytocin/0.9 % Sodium Chloride 30 UNIT/500 ML BAG IV SCH; +Propofol 200 MG/20 ML SDV ONE; +Rocuronium Bromide 50 MG/5 ML Syringe ONE; +Sodium Chloride 0.9% 10 ML SDV IV PRN; +Succinylcholine/Sod PF 100 MG/5 ML SYRINGE IV ONE; +ceFAZolin 1 GM Vial ONE; +ceFAZolin 2 GM in Premix Bag 1 BAG IV ONE; +fentaNYL 100 MCG/2 ML SDV ONE
--- NOTE | 2021-03-21 09:17 | PCM.PREANE ---
Preanesthetic Assessment - Anesthesia/Transfusion/Family Hx Anesthesia History: Prior Anesthesia Without Reaction (1st GA due to "I got wild") Family History of Anesthesia Reaction: No Transfusion History: Prior Transfusion Reaction Type of Transfusion Reactions: Reports: Other (see below) - Review of Systems General: No Symptoms Pulmonary: No Symptoms Cardiovascular: No Symptoms Gastrointestinal: No Symptoms Neurological: No Symptoms Other: Reports: None - Physical Assessment NPO Status Date: 03/21/21 NPO Status Time: 00:01 Vital Signs: Last Vital Signs Temp 95.7 F L 03/21/21 08:53 Pulse 94 03/21/21 09:05 Resp 13 03/21/21 09:05 BP 121/65 03/21/21 09:05 Pulse Ox 98 03/21/21 09:05 Height: 5 ft Weight: 185 lb 11.09 oz ASA Class: 2 Mental Status: Alert & Oriented x3 Airway Class: Mallampati = 2 Dentition: Reports: Normal Dentition ROM/Head Extension: Full Lungs: Clear to Auscultation, Normal Respiratory Effort Cardiovascular: Regular Rate, Regular Rhythm - Allergies Allergies/Adverse Reactions: Allergies Allergy/AdvReac Type Severity Reaction Status Date / Time No Known Allergies Allergy Verified 03/21/21 05:05 - Anesthesia Plan Pre-Op Medication Ordered: None - Acknowledgements Anesthesia Type Planned: General Anesthesia Pt an Appropriate Candidate for the Planned Anesthesia: Yes Alternatives and Risks of Anesthesia Discussed w Pt/Guardian: Yes Pt/Guardian Understands and Agrees with Anesthesia Plan: Yes Additional Comments: npo after mn emesis last night and this morning obesity bmi 36 PCOS tob none etoh none no cv problems par no questions PreAnesthesia Questionnaire - Past Health History Medical/Surgical History: Denies Medical/Surgical History HEENT History: Reports: Other (See Below) Other HEENT History: wears glasses/contacts Cardiovascular History: Reports: None Respiratory History: Reports: None Gastrointestinal History: Reports: Other (See Below) Other Gastrointestinal History: occasional heartburn during Genitourinary History: Reports: None 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: Musculoskeletal History: Reports: None Neurological History: Reports: Other (See Below) Other Neuro History: bells palsy (2013) Psychiatric History: Reports: None Endocrine/Metabolic History: Reports: Diabetes, Gestational, Obesity/BMI 30+ Other Endocrine/Metabolic History: gestational diabetes controlled with diet Hematologic History: Reports: Blood Transfusion(s) Other Hematologic History: blood transfusion after previous Immunologic History: Reports: None Oncologic (Cancer) History: Reports: None Dermatologic History: Reports: None - Infectious Disease History Infectious Disease History: Reports: None - Past Surgical History Head Surgeries/Procedures: Reports: None HEENT Surgical History: Reports: None Cardiovascular Surgical History: Reports: None Respiratory Surgical History: Reports: None GI Surgical History: Reports: None Female Surgical History: Reports: Section Other Female Surgeries/Procedures: x 1 Neurological Surgical History: Reports: None Musculoskeletal Surgical History: Reports: None Dermatological Surgical History: Reports: None - HOME MEDS Home Medications: Home Meds Tamsulosin HCl [Flomax] 0.4 mg PO DAILY 10 Days #10 cap.er.24h 03/16/21 [Rx] nitrofurantoin macrocrystaL [Nitrofurantoin] 100 mg PO BID 10 Days #19 capsule 03/16/21 [Rx] - CURRENT (IN HOUSE) MEDS Current Meds: Current Medications Lactated Ringer's (Ringers, Lactated) 1,000 mls @ 100 mls/hr IV ASDIRECTED KAYLA Sodium Chloride (Sodium Chloride 0.9% 10 Ml Syringe) 10 ml FLUSH ASDIRECTED PRN PRN Reason: Keep Vein Open Sodium Chloride (Sodium Chloride 0.9% 2.5 Ml Syringe) 2.5 ml FLUSH ASDIRECTED PRN PRN Reason: Keep Vein Open Sodium Chloride (Sodium Chloride 0.9% 10 Ml Sdv) 10 ml IV ASDIRECTED PRN PRN Reason: IV Use Discontinued Medications Cefazolin Sodium (Cefazolin 1 Gm Vial) Confirm Administered Dose 2 gm .ROUTE .STK-MED ONE Stop: 03/21/21 08:22 Dexamethasone (Dexamethasone 4 Mg/Ml 5 Ml Mdv) Confirm Administered Dose 20 mg .ROUTE .STK-MED ONE Stop: 03/21/21 07:08 Fentanyl (Fentanyl 100 Mcg/2 Ml Sdv) Confirm Administered Dose 100 mcg .ROUTE .STK-MED ONE Stop: 03/21/21 07:06 Cefazolin Sodium/Dextrose 2 gm (/ Premix) 50 mls @ 100 mls/hr IV ONCALL ONE Stop: 03/21/21 06:29 Iopamidol (Iopamidol 408 Mg/Ml 20 Ml Sdv) Confirm Administered Dose 20 ml .ROUTE .STK-MED ONE Stop: 03/21/21 08:30 Ketorolac Tromethamine (Ketorolac 30 Mg/Ml Sdv) Confirm Administered Dose 30 mg .ROUTE .[employer]-MED ONE Stop: 03/21/21 08:49 Lidocaine HCl (Lidocaine 1% 5 Ml Sdv) Confirm Administered Dose 5 ml .ROUTE .Node ManagementMED ONE Stop: 03/21/21 07:08 Midazolam HCl (Midazolam 1 Mg/Ml 2 Ml Sdv) Confirm Administered Dose 2 mg .ROUTE .eROI ONE Stop: 03/21/21 07:06 Ondansetron HCl (Ondansetron 4 Mg/2 Ml Sdv) Confirm Administered Dose 4 mg .ROUTE .eROI ONE Stop: 03/21/21 07:08 Propofol (Propofol 200 Mg/20 Ml Sdv) Confirm Administered Dose 200 mg .ROUTE .Node ManagementMED ONE Stop: 03/21/21 07:06 Rocuronium [place] (Rocuronium [place] 50 Mg/5 Ml Syringe) Confirm Administered Dose 50 mg .ROUTE .Node ManagementMED ONE Stop: 03/21/21 08:17
--- NOTE | 2021-03-21 09:17 | PCM.POSTAN ---
POST ANESTHESIA ASSESSMENT - MENTAL STATUS Mental Status: Alert (no anesthetic problems), Oriented - VITAL SIGNS Vital Signs: Last Vital Signs Temp 95.7 F L 03/21/21 08:53 Pulse 94 03/21/21 09:05 Resp 13 03/21/21 09:05 BP 121/65 03/21/21 09:05 Pulse Ox 98 03/21/21 09:05 - RESPIRATORY Respiratory Status: Respiratory Rate WNL, Airway Patent, O2 Saturation Stable - CARDIOVASCULAR CV Status: Pulse Rate WNL, Blood Pressure Stable - GASTROINTESTINAL GI Status: No Symptoms - POST OP HYDRATION Hydration Status: Adequate & Stable
[2021-03-21 09:57] VITALS: BP 92/61; PULSE 68
--- NOTE | 2021-03-21 10:07 | OR ---
SURGEON: Katja Gonsalves M.D. DATE OF PROCEDURE: 03/21/2021 PREOPERATIVE DIAGNOSIS: A 6 mm right ureterovesical junction stone. POSTOPERATIVE DIAGNOSIS: A 6 mm right ureterovesical junction stone. OPERATION: Right ureteroscopy and stone removal. DESCRIPTION: The patient was given general anesthesia. She was in dorsal lithotomy position, prepped and draped with sterile drapes. Cystourethroscopy was done, that was normal. A guidewire was advanced into the edematous right ureteral tunnel. The ureteral opening was then dilated using the UroMax II balloon dilator to approximately 15-K[place]. The rigid ureteroscope was then advanced in the right ureter. The stone was found in the right mid ureter by now. The Zero Tip basket was used to grab the stone and remove it. With that done, the ureteroscope was then advanced all the way up into the renal pelvis to see if there were any additional fragments that might have migrated. Nothing was found. With that done, the procedure was terminated. The bladder was emptied, and the patient was moved to recovery room in good condition. ARCHANA / WIN /[id number]
--- NOTE | 2021-03-21 10:23 | PCM48HPAN ---
Post Anesthesia Note - EVALUATION WITHIN 48HRS OF ANESTHETIC Vital Signs in Normal Range: Yes Patient Participated in Evaluation: Yes Respiratory Function Stable: Yes Airway Patent: Yes Cardiovascular Function Stable: Yes Hydration Status Stable: Yes Pain Control Satisfactory: Yes Nausea and Vomiting Control Satisfactory: Yes Mental Status Recovered: Yes Vital Signs: Last Vital Signs Temp 96.4 F L 03/21/21 09:14 Pulse 68 03/21/21 09:56 Resp 15 03/21/21 09:56 BP 92/61 03/21/21 09:56 Pulse Ox 96 03/21/21 09:56
== END | disposition home or self-care (01) ==
LOC: MW.SDS 10:57
PROVIDERS: ATTEND Urology
DX: N20.1 Calculus of ureter (principal); E66.9 Obesity, unspecified; Z79.899 Other long term (current) drug therapy; Z68.36 Body mass index [BMI] 36.0-36.9, adult
CPT/HCPCS: 88300; C1769; J0330; J0690; J1100; J1885; J2250; J2405; J2704; J3010; Q9966

== ENCOUNTER 2021-07-07 17:40 | Emergency (ER) | payer SELFPAY ==
[2021-07-07] MEDS ORDERED: Sodium Chloride 0.9% 2.5 ML Syringe FLUSH PRN (18:07)
[2021-07-07] MEDS ORDERED: Sodium Chloride 0.9% 10 ML Syringe FLUSH PRN (18:07)
[2021-07-07] MEDS ORDERED: Sodium Chloride 0.9% 1,000 ML IV ONE (18:09)
--- NOTE | 2021-07-07 18:10 | EDM.PDOC ---
ED HPI GENERAL MEDICAL PROBLEM - General Chief Complaint: Respiratory Problem Stated Complaint: COVID SYMPTOMS, LOW OXYGEN, SHORT OF BREATH Time Seen by Provider: 07/07/21 17:57 Source of Information: Reports: Patient History Limitations: Reports: No Limitations - History of Present Illness INITIAL COMMENTS - FREE TEXT/NARRATIVE: HISTORY AND PHYSICAL: History of present illness: The patient is a 31-year-old female who complains of chest pain, lower back pain that started on Thursday, chills along with hot flashes that started Thursday. The patient complains of a generalized headache. She states that she has been monitoring her oxygen duration due to some shortness of breath at home she has been getting anywhere from 84% to 85%. The patient states that she lost her sense of smell but has a sense of taste. The patient states she has been nauseated and been vomiting. No diarrhea or constipation. Patient denies any change in vision, syncope or near syncope. Has not noted any blood in urine or stool. Patient has decreased appetite and is unable to keep fluids down. The patient is not vaccinated for COVID-19. Review of systems: As per history of present illness and below otherwise all systems reviewed and negative. Past medical history: As per history of present illness and as reviewed below otherwise noncontributory. Surgical history: As per history of present illness and as reviewed below otherwise noncontributory. Social history: See social history for further information Family history: As per history of present illness and as reviewed below otherwise noncontributory. Physical exam: General: Well developed and well nourished. Alert and orientated x 3. Nontoxic in appearance and in no acute distress. Vital signs are stable and have been reviewed by me. Nursing notes were reviewed. HEENT: Atraumatic, normocephalic, pupils equal and reactive bilaterally, negative for conjunctival pallor or scleral icterus, mucous membranes moist, TMs normal bilaterally, throat clear, neck supple, nontender, trachea midline. No drooling or trismus noted. No meningeal signs. No hot potato voice noted. Lungs: Clear to auscultation bilaterally. No wheezes, rales, or rhonchi. Chest nontender. Normal work of breathing, no accessory muscles used. Heart: S1S2, regular rate and rhythm without overt murmur, gallops, or rubs. No JVD. No peripheral edema Abdomen: Soft, nondistended, nontender. Normoactive bowel sounds. Negative for masses or costovertebral tenderness. Skin: Intact, warm, dry. No lesions or rashes noted. Hematologic: No petechiae or purpra. Mucosa appropriate color and normal nail bed color and refill. Extremities: Atraumatic, moves all extremities per self without difficulty or deficits, negative for cords or calf pain. Neurovascular unremarkable. Neuro: Awake, alert, oriented. Cranial nerves II through XII unremarkable. Cerebellum unremarkable. Motor and sensory unremarkable throughout. Exam nonfocal. Psychiatric: Mood and affect are appropriate. Normal thought process. Answering questions appropriately. Notes: *This patient was seen and evaluated during the 2019 SARS-CoV-2 novel coronavirus pandemic period. Community viral transmission is ongoing at time of this encounter and the emergency department is operating under pandemic response procedures. As stated above the patient presents with complaints of shortness of breath, headache, nausea vomiting, generalized that started Thursday. A EKG was obtained as the patient is tachycardic. I will order a CBC, CMP, EKG, CXR, & COVID-19 swab. Will order IV fluids and Toradol for the patient's discomfort. The patient complains of nausea I will order Zofran. I have informed the patient of the orders and she is agreeable with this plan. The patient's chest x-ray IMPRESSION: 1. No acute cardiopulmonary disease is seen. The patient's CBC is remarkable for a white blood cell count of 3.49. Her CMP is remarkable for potassium of 3.3, glucose 135 calcium 7.5, AST 615, ALT 610, alkaline phosphatase 138, albumin 3.2. Dr. Salter consulted on the patient. Abdomen/pelvis with contrast CT ordered due to elevated liver enzymes. Abdomen/Pelvis CT impression: 1. Severe diffuse fatty infiltration of the liver is present and similar to prior. I have communicated the results with the patient. The patient's SpO2 lowest has been 92% on room air with subsequent jennifer dings SpO2 98% & 95% on room air. I instructed the patient to take off her nail moroccan to have a more adequate SpO2 results. The patient will be discharged home with instructions to follow up with her PCP regarding her elevated liver enzymes. Her abdomen/pelvis CT is unchanged. The patient qualifies for REGEN- COV. I provided the patient with the REGEN-COV fact sheet for patients. We discussed the infusion and possible course of COVID-19. I gave the patient Zofran in emergency department prior to discharge and a prescription to her pharmacy. I have communicated the REGEN-COV fact sheet for patients, parents and caregivers to the patient and the patient provided consent to continue with treatment. I have talked with the patient about today's findings, in addition to providing specific details for plan of care. Reassessment at the time of disposition demonstrates that the patient is in no acute distress. The patient is stable for discharge, counseling was provided and we discussed in great detail signs and symptoms that would prompt them to return to the Emergency Department. Medication, follow up and supportive care measures were reviewed and discussed. Voices understanding and is agreeable to plan of care. Denies any further questions or concerns at this time. Diagnostics:CBC, CMP, EKG, CXR, & COVID-19 swab, abdomen/pelvis CT Therapeutics: Toradol, IV fluids, Zofran 4mg ODT Prescription: Zofran 4mg po every 6 hours as needed for nausea. Patient to obtain REGEN-COV outpatient, sheet faxed. Impression: COVID-19 Plan: 1. You were evaluated today on an emergent basis. Your enzymes are elevated and you need to have those followed up with your primary care. You are positive for Covid 19. Your chest x-ray was negative. You do not have Covid pneumonia. Continue to monitor your oxygen saturation at home, however, if you have a low reading be sure to remove your nail moroccan. I have prescribed Zofran 4 mg ODT for nausea and vomiting. You were given a 1 prior to discharge from the emergency room. We treated your pain and discomfort with Toradol 60 mg intramuscular. 1b. I have provided you with the REGEN-COV fact sheet for patients. You gave your consent for the infusion. If you have any further questions you can speak with the staff at the infusion clinic. 2. You can alternate Tylenol and ibuprofen as needed for pain and fever management. 3. We encourage you to follow up with your primary care provider and/or recommended specialist in the next few days for re-evaluation and further care/management. 4. If your symptoms should worsen, new symptoms develop or any of the signs and symptoms we discussed should arise please return to the emergency room or call 911 (if needed). Definitive disposition and diagnosis as appropriate pending reevaluation and review of above. Chest/Back Pain Score (Numeric/FACES): 7 - Related Data Allergies Allergy/AdvReac Type Severity Reaction Status Date / Time No Known Allergies Allergy Verified 07/07/21 17:50 Home Meds: Home Meds Ondansetron [Zofran ODT] 4 mg PO Q6H PRN #10 tab.dis 07/07/21 [Rx] metFORMIN [Glucophage] 1,000 mg PO WITHDINNER 07/07/21 [History] Past Medical History - Past Health History Medical/Surgical History: Denies Medical/Surgical History HEENT History: Reports: Other (See Below) Other HEENT History: wears glasses/contacts Cardiovascular History: Reports: None Respiratory History: Reports: None Gastrointestinal History: Reports: Other (See Below) Other Gastrointestinal History: occasional heartburn during Genitourinary History: Reports: None WHITE SHOE EXAMINER History: Reports: , Other (See Below) Other WHITE SHOE EXAMINER History: PCOS Musculoskeletal History: Reports: None Neurological History: Reports: Other (See Below) Other Neuro History: bells palsy (2013) Psychiatric History: Reports: None Endocrine/Metabolic History: Reports: Obesity/BMI 30+ Other Endocrine/Metabolic History: prediabetic Hematologic History: Reports: Blood Transfusion(s) Other Hematologic History: blood transfusion after previous Immunologic History: Reports: None Oncologic (Cancer) History: Reports: None Dermatologic History: Reports: None - Infectious Disease History Infectious Disease History: Reports: None - Past Surgical History Head Surgeries/Procedures: Reports: None HEENT Surgical History: Reports: None Cardiovascular Surgical History: Reports: None Respiratory Surgical History: Reports: None GI Surgical History: Reports: None Female Surgical History: Reports: Section Other Female Surgeries/Procedures: x 1 Neurological Surgical History: Reports: None Musculoskeletal Surgical History: Reports: None Dermatological Surgical History: Reports: None Social & Family History - Family History Family Medical History: No Pertinent Family History Endocrine/Metabolic: Reports: Diabetes, type II - Tobacco Use Tobacco Use Status *Q: Never Tobacco User - Caffeine Use Caffeine Use: Reports: Energy Drinks Caffeine Use Comment: 2drinks/week - Recreational Drug Use Recreational Drug Use: No ED ROS GENERAL - Review of Systems Review Of Systems: Comprehensive ROS is negative, except as noted in HPI. ED EXAM, GENERAL - Physical Exam Exam: See Below (See discharge) Course - Vital Signs Last Recorded V/S: Last Vital Signs Temp 97.7 F 07/07/21 17:47 Pulse 64 07/07/21 22:46 Resp 16 07/07/21 22:46 BP 116/65 07/07/21 22:46 Pulse Ox 95 07/07/21 22:46 - Orders/Labs/Meds Labs: Laboratory Tests 07/07/21 07/07/21 07/07/21 Range/Units 18:50 18:50 19:45 WBC 3.49 L (4.0-11.0) K/uL RBC 5.27 (4.30-5.90) M/uL Hgb 14.9 (12.0-16.0) g/dL Hct 44.0 (36.0-46.0) % MCV 83.5 (80.0-98.0) fL MCH 28.3 (27.0-32.0) pg MCHC 33.9 (31.0-37.0) g/dL RDW Std Deviation 42.0 (28.0-62.0) fl RDW Coeff of Su 14 (11.0-15.0) % Plt Count 112 L (150-400) K/uL MPV 9.40 (7.40-12.00) fL Neut % (Auto) 67.0 (48.0-80.0) % Lymph % (Auto) 24.4 (16.0-40.0) % [place] % (Auto) 8.3 (0.0-15.0) % Eos % (Auto) 0.0 (0.0-7.0) % Baso % (Auto) 0.3 (0.0-1.5) % Neut # (Auto) 2.3 (1.4-5.7) K/uL Lymph # (Auto) 0.9 (0.6-2.4) K/uL [place] # (Auto) 0.3 (0.0-0.8) K/uL Eos # (Auto) 0.0 (0.0-0.7) K/uL Baso # (Auto) 0.0 (0.0-0.1) K/uL Nucleated RBC % 0.0 /100WBC Nucleated RBCs # 0 K/uL Sodium 138 (136-145) mmol/L Potassium 3.3 L (3.5-5.1) mmol/L Chloride 99 (98-107) mmol/L Carbon Dioxide 27.7 (21.0-32.0) mmol/L BUN 5 L (7.0-18.0) mg/dL Creatinine 0.7 (0.6-1.0) mg/dL Est Cr Clr Drug Dosing 82.88 mL/min Estimated GFR (MDRD) > 60.0 ml/min Glucose 135 H (74-106) mg/dL Calcium 7.5 L (8.5-10.1) mg/dL Total Bilirubin 0.3 (0.2-1.0) mg/dL AST 615 H (15-37) IU/L ALT 610 H (14-63) IU/L Alkaline Phosphatase 138 H (46-116) U/L Total Protein 7.1 (6.4-8.2) g/dL Albumin 3.2 L (3.4-5.0) g/dL Globulin 3.9 (2.6-4.0) g/dL Albumin/Globulin Ratio 0.8 L (0.9-1.6) SARS-CoV-2 RNA ([place]) POSITIVE H (NEGATIVE) Meds: Medications Discontinued Medications Generic Name Dose Route Start Last Admin Trade Name Freq PRN Reason Stop Dose Admin Sodium Chloride 1,000 mls @ 999 mls/hr 07/07/21 18:09 07/07/21 19:01 Normal Saline IV 07/07/21 19:09 999 mls/hr .BOLUS ONE Administration Iopamidol 100 ml 07/07/21 21:49 07/07/21 21:50 Iopamidol 755 Mg/Ml 500 Ml Multipack Bottle IVPUSH 07/07/21 21:50 100 ml ONETIME STA Administration Ketorolac Tromethamine 30 mg 07/07/21 19:37 07/07/21 19:49 Ketorolac 30 Mg/Ml Sdv IVPUSH 07/07/21 19:38 30 mg ONETIME ONE Administration Ondansetron HCl 4 mg 07/07/21 22:29 07/07/21 22:44 Ondansetron 4 Mg Tab.Dis PO 07/07/21 22:30 4 mg ONETIME ONE Administration Sodium Chloride 10 ml 07/07/21 18:07 07/07/21 19:02 Sodium Chloride 0.9% 10 Ml Syringe FLUSH 10 ml ASDIRECTED PRN Administration Keep Vein Open Sodium Chloride 2.5 ml 07/07/21 18:07 07/07/21 19:02 Sodium Chloride 0.9% 2.5 Ml Syringe FLUSH 2.5 ml ASDIRECTED PRN Administration Keep Vein Open Departure - Departure Time of Disposition: 22:38 Disposition: Home, Self-Care 01 Condition: Good Clinical Impression: COVID-19 - Discharge Information *PRESCRIPTION DRUG MONITORING PROGRAM REVIEWED*: Not Applicable *COPY OF PRESCRIPTION DRUG MONITORING REPORT IN PATIENT CHET: Not Applicable Prescriptions: Ondansetron [Zofran ODT] 4 mg PO Q6H PRN #10 tab.dis PRN Reason: Nausea Instructions: COVID-19 Frequently Asked Questions, COVID-19, COVID-19: How to Protect Yourself and Others - [facility], COVID-19: Quarantine vs. Isolation - [facility] (10/25/2020) Referrals: Crissy Khan NP [Primary Care Provider] - Forms: ED Department Discharge Additional Instructions: The following information is given to patients seen in the emergency department who are being discharged to home. This information is to outline your options for follow-up care. We provide all patients seen in our emergency department with a follow-up referral. The need for follow-up, as well as the timing and circumstances, are variable depending upon the specifics of your emergency department visit. If you don't have a primary care physician on staff, we will provide you with a referral. We always advise you to contact your personal physician following an emergency department visit to inform them of the circumstance of the visit and for follow-up with them and/or the need for any referrals to a consulting specialist. The emergency department will also refer you to a specialist when appropriate. This referral assures that you have the opportunity for follow-up care with a specialist. All of these measure are taken in an effort to provide you with optimal care, which includes your follow-up. Under all circumstances we always encourage you to contact your private physician who remains a resource for coordinating your care. When calling for follow-up care, please make the office aware that this follow-up is from your recent emergency room visit. If for any reason you are refused follow-up, please contact the [facility] Emergency Department at and asked to speak to the emergency department charge nurse. [facility] - [facility] [address] [place] [address] [facility] [address] [place] [address] 1. Your COVID-19 screening is positive. That means you do have the coronavirus and you are considered contagious. Your vital signs and oxygen saturation are well enough that you were able to monitor your symptoms at home. Continue to monitor for trouble breathing, new confusion or inability to arouse, bluish lips or face or any of the other symptoms we discussed -if this occurs please return to the emergency room. Plan: 1a. You were evaluated today on an emergent basis. Your enzymes are elevated and you need to have those followed up with your primary care. You are positive for Covid 19. Your chest x-ray was negative. You do not have Covid pneumonia. Continue to monitor your oxygen saturation at home, however, if you have a low reading be sure to remove your nail moroccan. I have prescribed Zofran 4 mg ODT for nausea and vomiting. You were given a 1 prior to discharge from the emergency room. We treated your pain and discomfort with Toradol 60 mg intramuscular. 1b. I have provided you with the REGEN-COV fact sheet for patients. You gave your consent for the infusion. If you have any further questions you can speak with the staff at the infusion clinic. 2. Please self quarantine until cleared by [facility]. Inform any persons that you have been in contact with since you started becoming symptomatic that you have tested positive; they should be made aware and take the appropriate steps as needed. 3. You can take NyQuil during the evening to help get a restful night sleep. May alternate Tylenol and ibuprofen as needed for pain and fever management. 4. The [facility] department will be calling you and following up with you. The [place] COVID 19 Hotline phone number , They are open Thursday - Thursday 7am - 7pm. Follow up with your primary care provider for re-evaluation and re-testing after the 10 day quarantine and discuss when you should be seen. Sepsis Event Note (ED) - Evaluation Sepsis Screening Result: No Definite Risk
[2021-07-07 19:20] LABS: BLOOD UREA NITROGEN,BUN 5 mg/dL (7.0-18.0); CARBON DIOXIDE,CO2 27.7 mmol/L (21.0-32.0); CHLORIDE,CL 99 mmol/L (98-107); GLUCOSE RANDOM 135 mg/dL (74-106); POTASSIUM,K 3.3 mmol/L (3.5-5.1); SODIUM,NA 138 mmol/L (136-145)
[2021-07-07] MEDS ORDERED: Ketorolac 30 MG/ML SDV IVPUSH ONE (19:37)
--- NOTE | 2021-07-07 20:03 | CR ---
INDICATION: Cough, shortness of breath TECHNIQUE: Chest radiograph 1 view COMPARISON: None FINDINGS: The sensitivity and specificity of the exam are moderately limited by the patient`s body habitus. Mediastinum: The mediastinum is normal in appearance. The heart silhouette is normal in size and morphology. Lung: Both lungs are unremarkable in appearance. No sign of pleural effusion seen. No pneumothorax is identified. Bone and Soft tissue: Unremarkable for age. IMPRESSION: 1. No acute cardiopulmonary disease is seen. Dictated by: Blas Esparza MD @ 07/07/2021 20:01:35 (Electronically Signed)
[2021-07-07] MEDS ORDERED: Iopamidol 755 MG/ML 500 ML Multipack Bottle IVPUSH STA (21:49)
--- NOTE | 2021-07-07 22:17 | CT ---
INDICATION: COVID-19, elevated liver enzymes TECHNIQUE: CT Abdomen and pelvis with i.v. contrast. Coronal and sagittal reformats were obtained. CONTRAST: 100 mL Isovue 370 COMPARISON: 03/16/2021 FINDINGS: Lower chest: Unremarkable. Liver: Severe diffuse fatty infiltration of the liver is present and similar to prior. Spleen: Unremarkable. Pancreas: Unremarkable. Gallbladder: Unremarkable. Kidney: Unremarkable. No kidney or ureteral stones or obstruction seen. Adrenal: Unremarkable. Bowel: Unremarkable. The appendix is normal in appearance and size. Vascular: Unremarkable. Lymph: Unremarkable. Peritoneum: Unremarkable. No pneumoperitoneum is seen. No significant ascites is noted. Pelvis: Unremarkable. Soft tissue: Unremarkable. Bone: Unremarkable for age. IMPRESSION: 1. Severe diffuse fatty infiltration of the liver is present and similar to prior. Dictated by Blas Esparza MD @ 07/07/2021 10:15:08 PM Please note that all CT scans at this facility use dose modulation, iterative reconstruction, and/or weight-based dosing when appropriate to reduce radiation dose to as low as reasonably achievable. Dictated by: Blas Esparza MD @ 07/07/2021 22:15:33 (Electronically Signed)
[2021-07-07] MEDS ORDERED: Ondansetron 4 MG Tab.DIS PO ONE (22:29)
[2021-07-07 22:47] VITALS: BP 116/65; PULSE 64
--- NOTE | 2021-07-08 07:05 | PCM.EKG ---
#1 Interpretation EKG Date: 07/07/21 Time: 17:53 Rhythm: NSR Rate (Beats/Min): 114 [place]: Normal P-Wave: Present QRS: Normal ST-T: Normal QT: Normal Comparison: NA - No Prior EKG EKG Interpretation Comments: Sinus tachycardia
== END 2021-07-07 22:55 | disposition home or self-care (01) ==
LOC: MW.ED 17:40
DX: U07.1 COVID-19 (principal); E66.9 Obesity, unspecified; E11.9 Type 2 diabetes mellitus without complications; Z68.36 Body mass index [BMI] 36.0-36.9, adult; Z79.84 Long term (current) use of oral hypoglycemic drugs
CPT/HCPCS: 36415; 71045; 74177; 80053; 85025; 87635; 93005; 96374; 99285; A9270; J1885; J7030; Q9967; 93010; 99283; U0002

== ENCOUNTER 2025-04-23 16:16 | Emergency (ER) | payer SELFPAY ==
[2025-04-23 17:08] LABS: BASOPHILS ABSOLUTE AUTO 0.03 K/uL (0.00-0.20); BASOPHILS PERCENT AUTO 0.3 % (0.0-1.0); EOSINOPHILS ABSOLUTE AUTO 0.05 K/uL (0.00-0.45); EOSINOPHILS PERCENT AUTO 0.5 % (0.0-6.0); HEMATOCRIT 32.2 % (37.0-47.0); IMMATURE GRAN ABSOLUTE AUTO 0.04 K/uL (0.00-0.05); IMMATURE GRAN PERCENT AUTO 0.4 % (0.0-0.4); LYMPHOCYTES PERCENT AUTO 21.6 % (24.0-44.0); MEAN CORPUSCULAR HEMOGLOBIN 22.9 pg (28.0-32.0); MEAN CORPUSCULAR HGB CONC 31.1 g/dL (32.0-36.0); MEAN CORPUSCULAR VOLUME 73.7 fL (83.0-99.0); MEAN PLATELET VOLUME 9.3 fL (9.4-12.3); MONOCYTES ABSOLUTE AUTO 0.69 K/uL (0.00-0.80); MONOCYTES PERCENT AUTO 6.8 % (0.0-8.0); NEUTROPHILS ABSOLUTE AUTO 7.19 K/uL (1.80-7.70); NEUTROPHILS PERCENT AUTO 70.4 % (41.0-71.0); PLATELET COUNT,PLT 261 K/uL (150-400); RED BLOOD CELL COUNT 4.37 M/uL (4.10-5.30)
[2025-04-23 18:05] LABS: ALANINE AMINOTRANSFERASE,ALT 18 IU/L (14-63); ALBUMIN 3.2 g/dL (3.4-5.0); ALKALINE PHOSPHATASE 86 U/L (46-116); ASPARTATE AMNIOTRANSFERASE,AST 11 IU/L (15-37); BILIRUBIN TOTAL 0.3 mg/dL (0.2-1.0); BLOOD UREA NITROGEN,BUN 9 mg/dL (7.0-18.0); CALCIUM 8.3 mg/dL (8.5-10.1); CARBON DIOXIDE,CO2 23.3 mmol/L (21.0-32.0); CHLORIDE,CL 103 mmol/L (98-107); CREATININE 0.6 mg/dL (0.6-1.0); GLUCOSE RANDOM 97 mg/dL (74-106); POTASSIUM,K 3.8 mmol/L (3.5-5.1); PROTEIN TOTAL,TP 6.5 g/dL (6.4-8.2); SODIUM,NA 135 mmol/L (136-145)
[2025-04-23 18:13] LABS: ESTIMATED GFR 120 mL/min (>60)
[2025-04-23 19:04] LABS: APPEARANCE,URINE SLT CLOUDY; BILIRUBIN,URINE NEGATIVE (NEGATIVE); COLOR,URINE YELLOW; GLUCOSE,URINE NEGATIVE (NEGATIVE); KETONES,URINE NEGATIVE (NEGATIVE); LEUKOCYTE ESTERASE,URINE SMALL (NEGATIVE); NITRITE,URINE NEGATIVE (NEGATIVE); OCCULT BLOOD,URINE LARGE (NEGATIVE); PROTEIN,URINE NEGATIVE (NEGATIVE); UROBILINOGEN,URINE 0.2 EU/dL (<2.0)
[2025-04-23 19:12] LABS: BACTERIA,URINE 3+ (NEGATIVE); EPITHELIAL CELLS,URINE MODERATE (NONE-FEW); RBC,URINE 0-1 (0-2/HPF)
[2025-04-24 00:15] VITALS: BP 120/66; PULSE 81
== END 2025-04-23 21:21 | disposition home or self-care (01) ==
LOC: MW.ED 16:16
DX: O20.0 Threatened abortion (principal); Z79.899 Other long term (current) drug therapy; Z3A.01 Less than 8 weeks gestation of pregnancy
CPT/HCPCS: 36415; 76815; 76815-26; 80053; 81001; 84702; 85025; 86900; 86901; 99284

== ENCOUNTER 2025-07-19 11:52 | Inpatient (IN) | payer SELFPAY ==
[2025-07-19 12:19] LABS: BASOPHILS ABSOLUTE AUTO 0.02 K/uL (0.00-0.20); BASOPHILS PERCENT AUTO 0.1 % (0.0-1.0); EOSINOPHILS ABSOLUTE AUTO 0.01 K/uL (0.00-0.45); EOSINOPHILS PERCENT AUTO 0.1 % (0.0-6.0); IMMATURE GRAN ABSOLUTE AUTO 0.12 K/uL (0.00-0.05); IMMATURE GRAN PERCENT AUTO 0.8 % (0.0-0.4); LYMPHOCYTES ABSOLUTE AUTO 0.77 K/uL (1.00-4.80); LYMPHOCYTES PERCENT AUTO 5.0 % (24.0-44.0); MEAN PLATELET VOLUME 9.2 fL (9.4-12.3); MONOCYTES ABSOLUTE AUTO 0.48 K/uL (0.00-0.80); MONOCYTES PERCENT AUTO 3.1 % (0.0-8.0); NEUTROPHILS ABSOLUTE AUTO 14.11 K/uL (1.80-7.70); NEUTROPHILS PERCENT AUTO 90.9 % (41.0-71.0); NRBC ABSOLUTE 0.00 K/uL (0.00-0.02); NRBC PERCENT 0.0 /100WBC (0.0-0.2); PLATELET COUNT,PLT 235 K/uL (150-400); RED BLOOD CELL COUNT 4.28 M/uL (4.10-5.30); WHITE BLOOD CELL COUNT,WBC 15.51 K/uL (3.9-11.3)
[2025-07-19 12:36] LABS: A/G RATIO 0.7 (0.9-1.6); ALANINE AMINOTRANSFERASE,ALT 9.0 IU/L (14-63); ASPARTATE AMNIOTRANSFERASE,AST 16.0 IU/L (15-37); BILIRUBIN TOTAL 0.5 mg/dL (0.2-1.0); BLOOD UREA NITROGEN,BUN 5.0 mg/dL (7.0-18.0); CARBON DIOXIDE,CO2 18.8 mmol/L (21.0-32.0); CHLORIDE,CL 99.0 mmol/L (98-107); CREATININE 0.5 mg/dL (0.6-1.0); EST CRCL DRUG DOSING (CG) 111.73 mL/min; GLUCOSE RANDOM 122.0 mg/dL (74-106); POTASSIUM,K 3.5 mmol/L (3.5-5.1); PROTEIN TOTAL,TP 7.3 g/dL (6.4-8.2); SODIUM,NA 133.0 mmol/L (136-145)
[2025-07-19 12:39] LABS: ESTIMATED GFR 125.0 mL/min (>60); LACTIC ACID 1.6 mmol/L (0.4-2.0)
[2025-07-19 13:06] LABS: APPEARANCE,URINE SLT CLOUDY; GLUCOSE,URINE NEGATIVE (NEGATIVE); OCCULT BLOOD,URINE NEGATIVE (NEGATIVE)
[2025-07-19] MEDS: cefTRIAXone 1 GM in Water For Injection, Sterile 10 ML IVPUSH ONE (13:09)
[2025-07-19 13:29] LABS: EPITHELIAL CELLS,URINE FEW (NONE-FEW)
[2025-07-19 16:48] LABS: BASOPHILS ABSOLUTE AUTO 0.00 K/uL (0.00-0.20); BASOPHILS PERCENT AUTO 0.0 % (0.0-1.0); EOSINOPHILS ABSOLUTE AUTO 0.00 K/uL (0.00-0.45); EOSINOPHILS PERCENT AUTO 0.0 % (0.0-6.0); IMMATURE GRAN ABSOLUTE AUTO 0.11 K/uL (0.00-0.05); IMMATURE GRAN PERCENT AUTO 1.0 % (0.0-0.4); LYMPHOCYTES ABSOLUTE AUTO 0.71 K/uL (1.00-4.80); LYMPHOCYTES PERCENT AUTO 6.2 % (24.0-44.0); MEAN PLATELET VOLUME 9.4 fL (9.4-12.3); MONOCYTES ABSOLUTE AUTO 0.49 K/uL (0.00-0.80); MONOCYTES PERCENT AUTO 4.3 % (0.0-8.0); NEUTROPHILS ABSOLUTE AUTO 10.21 K/uL (1.80-7.70); NEUTROPHILS PERCENT AUTO 88.5 % (41.0-71.0); NRBC ABSOLUTE 0.00 K/uL (0.00-0.02); NRBC PERCENT 0.0 /100WBC (0.0-0.2); PLATELET COUNT,PLT 198 K/uL (150-400); RED BLOOD CELL COUNT 3.69 M/uL (4.10-5.30); WHITE BLOOD CELL COUNT,WBC 11.52 K/uL (3.9-11.3)
[2025-07-19] MEDS ORDERED: Sodium Chloride 0.9% 10 ML Syringe FLUSH PRN (18:42)
[2025-07-19] MEDS ORDERED: Sodium Chloride 0.9% 2.5 ML Syringe FLUSH PRN (18:42)
[2025-07-19] MEDS ORDERED: Ondansetron 4 MG Tab.DIS PO PRN (18:44)
[2025-07-19 19:12] LABS: IRON,FE 34.0 ug/dL (50-175); PERCENT FE SATURATION 6.12 % (20-55)
[2025-07-20 06:00] LABS: BASOPHILS ABSOLUTE AUTO 0.00 K/uL (0.00-0.20); BASOPHILS PERCENT AUTO 0.0 % (0.0-1.0); EOSINOPHILS ABSOLUTE AUTO 0.00 K/uL (0.00-0.45); EOSINOPHILS PERCENT AUTO 0.0 % (0.0-6.0); IMMATURE GRAN ABSOLUTE AUTO 0.11 K/uL (0.00-0.05); IMMATURE GRAN PERCENT AUTO 1.4 % (0.0-0.4); LYMPHOCYTES ABSOLUTE AUTO 0.54 K/uL (1.00-4.80); LYMPHOCYTES PERCENT AUTO 7.1 % (24.0-44.0); MEAN PLATELET VOLUME 8.8 fL (9.4-12.3); MONOCYTES ABSOLUTE AUTO 0.36 K/uL (0.00-0.80); MONOCYTES PERCENT AUTO 4.7 % (0.0-8.0); NEUTROPHILS ABSOLUTE AUTO 6.61 K/uL (1.80-7.70); NEUTROPHILS PERCENT AUTO 86.8 % (41.0-71.0); NRBC ABSOLUTE 0.00 K/uL (0.00-0.02); NRBC PERCENT 0.0 /100WBC (0.0-0.2); PLATELET COUNT,PLT 166 K/uL (150-400); RED BLOOD CELL COUNT 3.47 M/uL (4.10-5.30); WHITE BLOOD CELL COUNT,WBC 7.62 K/uL (3.9-11.3)
[2025-07-20 06:34] LABS: A/G RATIO 0.7 (0.9-1.6); ALANINE AMINOTRANSFERASE,ALT 13.0 IU/L (14-63); ASPARTATE AMNIOTRANSFERASE,AST 15.0 IU/L (15-37); BILIRUBIN TOTAL 0.4 mg/dL (0.2-1.0); BLOOD UREA NITROGEN,BUN 2.0 mg/dL (7.0-18.0); CARBON DIOXIDE,CO2 21.7 mmol/L (21.0-32.0); CHLORIDE,CL 105.0 mmol/L (98-107); CREATININE 0.4 mg/dL (0.6-1.0); EST CRCL DRUG DOSING (CG) 139.66 mL/min; GLUCOSE RANDOM 95.0 mg/dL (74-106); PHOSPHORUS 2.7 mg/dL (2.6-4.7); POTASSIUM,K 3.2 mmol/L (3.5-5.1); PROTEIN TOTAL,TP 6.0 g/dL (6.4-8.2); SODIUM,NA 139.0 mmol/L (136-145)
[2025-07-20 06:39] LABS: ESTIMATED GFR 131.0 mL/min (>60)
[2025-07-20] MEDS: Ondansetron 4 MG/2 ML SDV IVPUSH PRN (06:48)
[2025-07-20] MEDS: Magnesium Sulfate 2 GM/50 mL 2 GM in Premix Bag 1 BAG IV ONE (09:08)
[2025-07-20] MEDS: NS with KCl 40mEq 1,000 ML IV SCH (10:14)
[2025-07-20] MEDS: cefTRIAXone 1 GM in Water For Injection, Sterile 10 ML IVPUSH SCH (13:02)
[2025-07-20] MEDS: Sodium Ferric Gluconate Cmplex 125 MG in Sodium Chloride 0.9% 100 ML IV ONE (13:02)
[2025-07-21 05:26] LABS: BASOPHILS ABSOLUTE AUTO 0.01 K/uL (0.00-0.20); BASOPHILS PERCENT AUTO 0.2 % (0.0-1.0); EOSINOPHILS ABSOLUTE AUTO 0.02 K/uL (0.00-0.45); EOSINOPHILS PERCENT AUTO 0.3 % (0.0-6.0); IMMATURE GRAN ABSOLUTE AUTO 0.21 K/uL (0.00-0.05); IMMATURE GRAN PERCENT AUTO 3.5 % (0.0-0.4); LYMPHOCYTES ABSOLUTE AUTO 0.75 K/uL (1.00-4.80); LYMPHOCYTES PERCENT AUTO 12.6 % (24.0-44.0); MEAN PLATELET VOLUME 9.0 fL (9.4-12.3); MONOCYTES ABSOLUTE AUTO 0.57 K/uL (0.00-0.80); MONOCYTES PERCENT AUTO 9.6 % (0.0-8.0); NEUTROPHILS ABSOLUTE AUTO 4.38 K/uL (1.80-7.70); NEUTROPHILS PERCENT AUTO 73.8 % (41.0-71.0); NRBC ABSOLUTE 0.02 K/uL (0.00-0.02); NRBC PERCENT 0.3 /100WBC (0.0-0.2); PLATELET COUNT,PLT 142 K/uL (150-400); RED BLOOD CELL COUNT 3.19 M/uL (4.10-5.30); WHITE BLOOD CELL COUNT,WBC 5.94 K/uL (3.9-11.3)
[2025-07-21 06:28] LABS: A/G RATIO 0.6 (0.9-1.6); ALANINE AMINOTRANSFERASE,ALT 15.0 IU/L (14-63); ASPARTATE AMNIOTRANSFERASE,AST 21.0 IU/L (15-37); BILIRUBIN TOTAL 0.3 mg/dL (0.2-1.0); BLOOD UREA NITROGEN,BUN 2.0 mg/dL (7.0-18.0); CARBON DIOXIDE,CO2 20.2 mmol/L (21.0-32.0); CHLORIDE,CL 107.0 mmol/L (98-107); CREATININE 0.3 mg/dL (0.6-1.0); EST CRCL DRUG DOSING (CG) 186.21 mL/min; GLUCOSE RANDOM 81.0 mg/dL (74-106); POTASSIUM,K 3.2 mmol/L (3.5-5.1); PROTEIN TOTAL,TP 5.4 g/dL (6.4-8.2); SODIUM,NA 139.0 mmol/L (136-145)
[2025-07-21 06:35] LABS: ESTIMATED GFR 141.0 mL/min (>60)
[2025-07-21] MEDS: Magnesium Sulfate 2 GM/50 mL 2 GM in Premix Bag 1 BAG IV ONE (11:40)
[2025-07-21] MEDS: Potassium Chloride 20 MEQ Tab.ER PO SCH (11:40)
[2025-07-22 04:48] LABS: MEAN PLATELET VOLUME 8.9 fL (9.4-12.3); NRBC ABSOLUTE 0.02 K/uL (0.00-0.02); NRBC PERCENT 0.3 /100WBC (0.0-0.2); PLATELET COUNT,PLT 151 K/uL (150-400); RED BLOOD CELL COUNT 3.56 M/uL (4.10-5.30); WHITE BLOOD CELL COUNT,WBC 7.45 K/uL (3.9-11.3)
[2025-07-22 05:12] LABS: ALANINE AMINOTRANSFERASE,ALT 6.0 IU/L (14-63); ASPARTATE AMNIOTRANSFERASE,AST 17.0 IU/L (15-37); BILIRUBIN TOTAL 0.2 mg/dL (0.2-1.0); BLOOD UREA NITROGEN,BUN 3.0 mg/dL (7.0-18.0); CARBON DIOXIDE,CO2 23.0 mmol/L (21.0-32.0); CHLORIDE,CL 105.0 mmol/L (98-107); CREATININE 0.3 mg/dL (0.6-1.0); EST CRCL DRUG DOSING (CG) 186.21 mL/min; GLUCOSE RANDOM 84.0 mg/dL (74-106); POTASSIUM,K 3.3 mmol/L (3.5-5.1); PROTEIN TOTAL,TP 5.6 g/dL (6.4-8.2); SODIUM,NA 137.0 mmol/L (136-145)
[2025-07-22 05:16] LABS: A/G RATIO 0.7 (0.9-1.6); ESTIMATED GFR 141.0 mL/min (>60)
[2025-07-22 06:28] LABS: EOSINOPHILS ABSOLUTE MAN 0.15 K/uL (0.00-0.45); EOSINOPHILS PERCENT MAN 2 % (0-6); MYELOCYTE ABSOLUTE MAN 0.07; MYELOCYTE PERCENT MAN 1 %
[2025-07-22 06:29] LABS: LYMPHOCYTES ABSOLUTE MAN 2.01 K/uL (1.00-4.80); LYMPHOCYTES PERCENT MAN 27 % (24-44); MONOCYTES ABSOLUTE MAN 0.82 K/uL (0.00-0.80); MONOCYTES PERCENT MAN 11 % (0-8); SEG NEUTROPHILS ABSOLUTE MAN 4.40 K/uL (1.80-7.70); SEG NEUTROPHILS PERCENT MAN 59 % (41-71)
[2025-07-22 08:02] LABS: BORDETELLA PARAPERT IS1001 Not Detected (Not Detected)
[2025-07-22] MEDS: cefTRIAXone 1 GM in Water For Injection, Sterile 10 ML IVPUSH SCH (16:07)
[2025-07-22 17:12] VITALS: BP 105/59; PULSE 101
== END 2025-07-22 16:54 | disposition home or self-care (01) | DRG 833 ==
LOC: MW.ED 11:52 → MW.MS 17:52
PROVIDERS: ADMIT Internal Medicine; ATTEND Internal Medicine
DX: O23.02 Infections of kidney in pregnancy, second trimester (principal); O99.212 Obesity complicating pregnancy, second trimester; E86.0 Dehydration; O99.012 Anemia complicating pregnancy, second trimester; O24.419 Gestational diabetes mellitus in pregnancy, unspecified control; E83.42 Hypomagnesemia; E87.6 Hypokalemia; D50.9 Iron deficiency anemia, unspecified; I95.9 Hypotension, unspecified; Z79.899 Other long term (current) drug therapy; Z98.891 History of uterine scar from previous surgery; Z3A.18 18 weeks gestation of pregnancy
CPT/HCPCS: 36415; 36430; 72195; 72195-26; 74181; 74181-26; 76705; 76705-26; 76775; 76775-26; 76856; 76856-26; 80053; 81001; 81025; 82728; 82947; 83550; 83605; 83690; 83735; 84100; 84112; 85014; 85018; 85025; 86140; 86850; 86900; 86901; 86920; 87040; 87086; 87088; 87102; 87186; 87428-QW; 87486; 87581; 87633; 96361; 96374; 99285; 99285-25; A9270-GY; J0696; J2405; J2916; J3475; J3480; J7030; P9016